=== PATIENT | male | born 1945 | race Caucasian/White ===

== ENCOUNTER 2017-04-07 20:26 | Inpatient (IN) ==
[2017-04-07 20:46] LABS: Basophils # 0.1 K/mcL (0.0-0.2); Basophils % 0.9 %; Eosinophils # 0.4 K/mcL (0.0-0.6); Eosinophils % 3.3 %; Hematocrit 30.2 % (37.5-50.1); Hemoglobin 9.3 g/dL (12.9-16.9); Immature Granulocytes % 0.4 % (0-4); Lymphocytes # 1.8 K/mcL (0.6-4.6); Lymphocytes % 15.9 %; Mean Corpuscular HGB Conc 30.8 g/dL (31.6-35.5); Mean Corpuscular Hemoglobin 27.1 pg (28.0-33.3); Mean Platelet Volume 9.6 fL (9.4-12.4); Monocytes # 1.2 K/mcL (0.0-1.3); Monocytes % 10.4 %; Neutrophils # 7.9 K/mcL (1.6-8.9); Platelet Count 371 K/mcL (140-400); Red Blood Count 3.43 M/mcL (4.19-5.50); Red Cell Distribution Width 14.2 % (11.5-14.5); Segmented Neutrophils % 69.1 %
[2017-04-07 20:51] LABS: INR 1.1; Prothrombin Time 11.4 Seconds (9.4-12.1)
[2017-04-07 20:57] LABS: Calcium 9.2 mg/dL (8.6-10.8); Potassium 4.2 mEq/L (3.5-4.5)
[2017-04-07] MEDS ORDERED: *HR* Heparin 5,000 UNIT/ML VIAL IVP PRN ×2 (21:08)
[2017-04-07] MEDS ORDERED: *HR* Heparin 5,000 UNIT/ML VIAL IVP ONE (21:08)
--- NOTE | 2017-04-07 21:20 | Emergency Department Note ---
Disposition Clinical Impression: NSTEMI (non-ST elevated myocardial infarction) Disposition: Admitted As Inpatient Condition: Fair Chest Pain HPI - General Chief Complaint: ED Chest Pain Stated Complaint: chest pain Time Seen by Provider: 04/07/17 20:30 Source: patient, family, EMS Limitations: no limitations Vital Signs Reviewed: Yes Nursing Notes Reviewed: Yes - History of Present Illness HPI Narrative: Mr. Adair, 71 old male, arrives from home by EMS with chief complaint of left- sided chest pain. Onset approximately one hour prior to arrival. Duration approximately 35-40 minutes and relieved with signal sublingual nitroglycerin given in route by EMS. Patient also received 81 mg aspirin 4 in route. Chest pain described as beginning in his left shoulder and radiating to his left neck and down his left chest. Described as constant, sharp, stabbing. Associate with diaphoresis. Denies associated nausea, dyspnea, or weakness. PMH: recently diagnosed with lung cancer which is increasing his stress levels; is currently still being evaluated and has not started any treatment plans. Vascular history: No cardiac stents or hx ACS. History of abdominal aneurysm. Left carotid endarterectomy, bilateral femoral stents - formed at this facility. Antiplatelet: Aspirin 81 mg, Plavix Anticoagulant: None Habits: [id number] history of smoking (1-1.5 pack per day 60 years); quit 1 week ago. ROS: Positive: None at this time to me; Patient is asymptomatic Negative: Fever, chills, nausea, vomiting, chest pains, palpitations, dyspnea, abdominal pains, back pains, neck pains, headache, anxiety, weakness Severity scale (1-10): 0 - Related Data Home Medications Medication Instructions Recorded Confirmed Aspirin Enteric Coated [Aspirin EC] 81 mg PO DAILY 03/09/16 04/05/17 Atorvastatin [Lipitor] 40 mg PO HS 03/09/16 04/05/17 Clopidogrel [Plavix] 75 mg PO DAILY 03/09/16 04/05/17 Previous Rx's Medication Instructions Recorded Oxycodone HCl/Acetaminophen 1 each PO Q6H PRN #30 tablet 04/05/17 [Percocet 7.5-325 mg Tablet] Allergies Allergy/AdvReac Type Severity Reaction Status Date / Time Penicillins Allergy Intermediate Rash Verified 04/05/17 15:46 All systems ED: reviewed and negative except as stated. Chest Pain PMH - Past Medical History Medical history: Reports: cancer, coronary artery disease, hypertension, peripheral artery disease Psychiatric history: Reports: no psych history - Social History Smoking Status: Former smoker Alcohol use: Reports: occasionally Drug use: Reports: none Physical Exam Vital Signs Reviewed General: Patient is alert, oriented, and in no acute distress. HEENT: No facial asymmetry. Head is normocephalic and atraumatic. PERRLA. Trachea midline. Cardiovascular: Heart regular rate and rhythm without clicks, rubs, gallops, or murmurs. No JVD. PMI nondisplaced. No chest pain palpation. Bilateral radial posterior tibial pulses 2/4. No carotid bruit. Respiratory: Symmetric chest rise with good respiratory effort. Bilateral breath sounds are clear without wheezing, crackles, or rhonchi. Abdomen: Bowel sounds present normoactive x-4 quadrants. Abdomen is soft, nondistended, and nontender. Skin: Warm and dry. Psych: Patient's affect is appropriate for situation. - General Limitations: no limitations General appearance: alert, in no apparent distress Course Course Narrative: Patient received several sublingual nitroglycerin and aspirin 81 mg 4 in route by EMS. We will not administer aspirin to him at this time. Patient's troponin is elevated at 0.29. EKG is unremarkable for ST changes. Chest x-ray unremarkable per radiology read. I discussed these findings patient and family at bedside. They agree to admission. Spoke with on-call cardiology, Dr. Abdul, who agrees to begin with ACS management; start low-dose ACS heparin. Spoke with the admitting hospitalist, Dr. Phan; he agrees to accept the patient and has no additional questions. Vital Signs Temperature 98.1 F 04/07/17 20:29 Pulse Rate 96 04/07/17 20:29 Respiratory Rate 16 04/07/17 20:29 Blood Pressure 173/86 04/07/17 20:29 O2 Sat by Pulse Oximetry 98 04/07/17 20:29 Temperature 97.9 F 04/08/17 03:05 Pulse Rate 80 04/08/17 03:05 Respiratory Rate 18 04/08/17 03:05 Blood Pressure 162/83 04/08/17 03:05 O2 Sat by Pulse Oximetry 97 04/08/17 03:05 Oxygen Delivery Oxygen Delivery Room Air Chest Pain - Medical Records Medical records reviewed: Yes I reviewed the patient's medical records. - Lab Data Lab results reviewed: Yes I reviewed the patient's lab results. Result diagrams: 04/08/17 03:03 04/07/17 20:38 Lab Results 04/07/17 04/07/17 04/07/17 Range/Units 20:38 20:38 20:38 WBC 11.4 H (4.3-11.1) K/mcL RBC 3.43 L (4.19-5.50) M/mcL Hgb 9.3 L (12.9-16.9) g/dL Hct 30.2 L (37.5-50.1) % MCV 88.0 (83.0-100.0) fL MCH 27.1 L (28.0-33.3) pg MCHC 30.8 L (31.6-35.5) g/dL RDW 14.2 (11.5-14.5) % Plt Count 371 (140-400) K/mcL MPV 9.6 (9.4-12.4) fL Immature Gran % 0.4 (0-4) % Seg Neutrophils % 69.1 % Lymphocytes % 15.9 % Monocytes % 10.4 % Eosinophils % 3.3 % Basophils % 0.9 % Neutrophils # 7.9 (1.6-8.9) K/mcL Lymphocytes # 1.8 (0.6-4.6) K/mcL Monocytes # 1.2 (0.0-1.3) K/mcL Eosinophils # 0.4 (0.0-0.6) K/mcL Basophils # 0.1 (0.0-0.2) K/mcL PT 11.4 (9.4-12.1) Seconds INR 1.1 APTT 30.0 (26.0-36.0) Seconds Sodium 138 (136-145) mEq/L Potassium 4.2 (3.5-4.5) mEq/L Chloride 104 (98-109) mEq/L Carbon Dioxide 26 (19-29) mEq/L BUN 31 H (8-26) mg/dL Creatinine 1.58 H (0.72-1.25) mg/dL Est GFR ( Amer) 52 L (> 60) Est GFR (Non-Af Amer) 43 L (> 60) BUN/Creatinine Ratio 20 (6-26) Glucose 136 H (70-99) mg/dL Calculated Osmolality 295 (280-300) Calcium 9.2 (8.6-10.8) mg/dL Troponin I (0-0.03) ng/mL 04/07/17 Range/Units 20:38 WBC (4.3-11.1) K/mcL RBC (4.19-5.50) M/mcL Hgb (12.9-16.9) g/dL Hct (37.5-50.1) % MCV (83.0-100.0) fL MCH (28.0-33.3) pg MCHC (31.6-35.5) g/dL RDW (11.5-14.5) % Plt Count (140-400) K/mcL MPV (9.4-12.4) fL Immature Gran % (0-4) % Seg Neutrophils % % Lymphocytes % % Monocytes % % Eosinophils % % Basophils % % Neutrophils # (1.6-8.9) K/mcL Lymphocytes # (0.6-4.6) K/mcL Monocytes # (0.0-1.3) K/mcL Eosinophils # (0.0-0.6) K/mcL Basophils # (0.0-0.2) K/mcL PT (9.4-12.1) Seconds INR APTT (26.0-36.0) Seconds Sodium (136-145) mEq/L Potassium (3.5-4.5) mEq/L Chloride (98-109) mEq/L Carbon Dioxide (19-29) mEq/L BUN (8-26) mg/dL Creatinine (0.72-1.25) mg/dL Est GFR ( Amer) (> 60) Est GFR (Non-Af Amer) (> 60) BUN/Creatinine Ratio (6-26) Glucose (70-99) mg/dL Calculated Osmolality (280-300) Calcium (8.6-10.8) mg/dL Troponin I 0.29 H* (0-0.03) ng/mL - Radiology Data Radiology results reviewed: Yes I reviewed the patient's radiology results. - EKG Data EKG attestation: Yes I reviewed and interpreted this EKG. EKG results narrative: EKG dated 07 April 2017 at 20: 32 interpreted as sinus rhythm with a rate of 98. Normal intervals appear 156, QRS 92, QT/QTC 336/91. Normal axis. Nonspecific ST-T changes. Compared to previous dated 03/18/2017 showing no acute ischemic changes or comparison. Heart Score - Score History: Moderately Suspicious EKG: Non Specific repolarisation Disturbance Age: Greater than 65 Risk Factors: Equal/Greater than 3 risk factor or history of atherosclerotic disease Troponin: 1-3x normal limit HEART Score Total: 7 Attestation Statement - Attestation Attestation: I examined this patient and my medical decision-making was reviewed with the DIRECTOR INSTRUCTIONAL MATERIAL/PA/Advanced Practice Nurse/Resident Physician. I agree with the documented findings, disposition and treatment plan as described except to the extent set forth below. Patient to ED with chest pain. Left-sided pressure. Pain was relieved in route by nitroglycerin. In free at the time of arrival. On examination he is awake alert no acute distress. Heart regular rate and rhythm lungs are clear. Plan. Patient has unchanged EKG. Troponin slightly elevated at 0.2. Pain relieved with nitroglycerin. He does have newly diagnosed cancer, however is not short of breath. He is not hypoxic. His family with nitroglycerin. This is felt to be ischemic chest pain and not a PE. He is admitted to medicine. 30 minutes of critical care exclusive of separately billable procedures.
[2017-04-07] MEDS: Heparin 25,000 UNIT/500 ML D5W 25,000 UNIT/500 ML MLS IVC SCH (21:28)
[2017-04-07] MEDS ORDERED: *HR* Labetalol 20 MG/4 ML SYRINGE IVP ONE (22:08)
[2017-04-07] MEDS ORDERED: Ondansetron 4 MG/2 ML VIAL IVP PRN (22:48)
[2017-04-07] MEDS ORDERED: Acetaminophen 325 MG TABLET PO PRN (22:48)
[2017-04-07] MEDS ORDERED: Naloxone 0.4 MG/ML INJ IVP PRN (22:48)
--- NOTE | 2017-04-07 22:48 | Internal Med History&Physical ---
Date of Encounter: 04/07/17 Time of Encounter: 23:26 Assessment and Plan (1) NSTEMI (non-ST elevated myocardial infarction) Current visit: Yes Status: Acute 1 He has been experiencing left-sided shoulder pain radiating to chest. Pain was relieved with nitroglycerin He has a history of coronary disease abnormal stress test/2016. Hypertension smoker Cardiac troponin was elevated at 0.29 we will continue to trend troponins ER physician spoke with Dr. Abdul director long term care cardiology who suggests initiating heparin drip 2 we will obtain a cardiac echo 3 we will continue with aspirin Plavix and statin we will initiate metoprolol 12.5 twice a day all 4 continuous cardiac monitoring 5 nitroglycerin as needed for chest pain 6 lipid profile in the a.m. and (2) Non-small cell lung cancer Current visit: Yes Status: Acute 1 patient was recently diagnosed with non-small cell carcinoma right lung. He is being followed by oncology. Presently he is still being evaluated he has not started treatment. He will continue to follow with oncology will consult as needed Qualifiers: Laterality: right Qualified Code(s): C34.91 - Malignant neoplasm of unspecified part of right bronchus or lung (3) Hypertension Current visit: Yes Status: Acute 1 patient was on lisinopril was recently stopped due to LINETTE. We will start on metoprolol 12.5 twice a day Qualifiers: Hypertension type: essential hypertension Qualified Code(s): I10 - Essential (primary) hypertension (4) CKD (chronic kidney disease), stage III Current visit: Yes Status: Acute 1 patient's creatinine is 1.58 which appears to be around his baseline. Apparently he has had a recent episode of [place] I. We will continue to monitor creatinine 2 we will avoid nephrotoxins 3 monitor intake and output daily weights (5) DVT prophylaxis Current visit: Yes Status: Acute Patient is on heparin drip Internal Medicine - H&P: HPI Chief complaint: CP Admitted From: Emergency Dept Plans for Post Hospital Care: Home History of present illness: Mr. Aguilar is a 71 year old male past medical history of hypertension coronary artery disease PAD left carotid endarterectomy abdominal aortic aneurysm bilateral femoral stents non-small cell carcinoma. According to the patient he has been experiencing left shoulder pain off and on since March 30. He felt it was related to bursitis and has been using heat warm showers and icy hot to relieve the pain. This has been working up until today the patient began to experience left-sided shoulder pain radiating into his left neck into his left chest describes the pain as constant sharp stabbing he did experience some diaphoresis denies any nausea or dyspnea or weakness. The pain lasted approximately 35-40 minutes he did call EMS. Upon EMS arrival he did give him 1 nitroglycerin and 4 baby aspirin which did relieve his pain. He was transported to the ER for further workup evaluation. Upon arrival to the ER lab work did reveal troponin of 0.29 EKG was sinus rhythm no ST T wave abnormalities. Lab work did reveal elevated creatinine 1.58 however appears this is something chronic. Chest x-ray revealed bibasilar atelectasis and unchanged upper right lobe mass. Patient's heart rate was 80-90 he was hypertensive 180- 190 systolic. Patient was given labetalol IV. ER physician did speak to Dr. Abdul director long term care cardiology who advised to start patient on heparin drip. Patient has been admitted for further workup and evaluation. Presently patient denies any chest pain he does not appear to be any respiratory distress his lung sounds are clear throughout, heart sounds regular rate S1-S2 no rubs or clicks gallops murmurs noted. No lower extremity edema. Abdomen soft nontender. Denies any fevers chills nausea vomiting diarrhea abdominal pain He is sinus rhythm on the monitor with rate of 80s systolics 150. Hemodynamically stable at this time. I reviewed his case with Dr. Delarosa who agrees with plan. Past Med Surg Social Fam HX - Past Medical History Medical history: cancer, coronary artery disease, hypertension, peripheral artery disease Psychiatric history: no psych history - Social History Smoking Status: Former smoker Smokeless Tobacco Status: No Alcohol use: occasionally Drug use: none - Family History Father Living Status: Cause of : Heart disease Internal Medicine - H&P: Meds Aspirin Enteric Coated [Aspirin EC] 81 mg PO DAILY 03/09/16 [History] Atorvastatin [Lipitor] 40 mg PO HS 03/09/16 [History] Clopidogrel [Plavix] 75 mg PO DAILY 03/09/16 [History] Oxycodone HCl/Acetaminophen [Percocet 7.5-325 mg Tablet] 1 each PO Q6H PRN #30 tablet 04/05/17 [Rx] Allergies Penicillins Allergy (Intermediate, Verified 04/05/17 15:46) Rash All Systems PM: A 10-system review of systems was performed and is negative for pertinent findings except as documented above in the HPI. - Constitutional Constitutional: no chills, no fever(s), no night sweats - EENT Eyes: no change in vision, no discharge, no pain, no photophobia Nose, mouth and throat: no dysphagia, no nasal discharge, no neck pain, no sore throat - Cardiovascular Cardiovascular ROS IM: chest pain, no diaphoresis, no dyspnea, no lightheadedness, no palpitations, no syncope - Respiratory Respiratory: no cough, no dyspnea, no wheezing, no excessive phlegm production - Gastrointestinal Gastrointestinal: no abdominal pain, no diarrhea, no hematemesis, no hematochezia, no melena, no nausea, no vomiting - Musculoskeletal Musculoskeletal ROS IM: arthralgias - Integumentary Integumentary IM: no rash, no unusual bruising - Neurological Neurological ROS: no confusion, no convulsions, no focal weakness, no numbness, no tingling, no tremor(s) - Hematologic/Lymphatic Hematologic/Lymphatic: no easy bruising - Constitutional Vitals: Temp Pulse Resp BP Pulse Ox 98.1 F 92 16 190/106 96 04/07/17 20:29 04/07/17 21:41 04/07/17 22:28 04/07/17 22:28 04/07/17 21:41 General appearance: Present: A&O X 3, answers questions appropriately - Head Head exam: Present: atraumatic, normocephalic - Eye Eye exam: Present: PERRL, conjuntiva pink, sclera anicteric Pupils: Present: PERRL - Neck Neck exam general surgery: Present: supple, trachea midline. Absent: lymphadenopathy - Respiratory Respiratory exam: Present: CTAB. Absent: accessory muscle use, rales, rhonchi, wheezes - Cardiovascular Cardiovascular exam: Present: RRR, +S1, +S2. Absent: diastolic murmur, gallop, rubs, systolic murmur - GI/Abdominal GI/Abdominal exam: Present: normal bowel sounds, soft, no peritoneal signs. Absent: distended, tenderness - Extremities Exam Extremities exam: Present: warm, radial pulses palpable and symetrical. Absent : calf tenderness, cyanotic, pedal edema - Neurological Exam Neurological exam: Present: CN II-XII intact, oriented X3, no focal deficits. Absent: pronater drift, facial droop, speech deficit - Skin Skin exam: Present: dry, intact Internal Med - H&P Results - Labs CBC & Chem 7: 04/07/17 20:38 04/07/17 20:38 - EKG Data EKG shows normal: sinus rhythm - EKG Data Prior EKG available for review: yes When compared to previous EKG: there is no significant change - Diagnostic Studies Chest x-ray Additional comments: Chest X-Ray 04/07/17 20:30 IMPRESSION: 1. Bibasilar atelectasis. 2. Unchanged right upper lobe mass consistent with malignancy. Unchanged metastatic right mediastinal lymphadenopathy. D/ / Silvestre Pineda MD / Silvestre Pineda MD Interpreting Provider: Silvestre Pineda MD
[2017-04-07] MEDS ORDERED: 0.9 % Sodium Chloride 250 ML ONE (23:39)
[2017-04-08 03:44] LABS: Basophils # 0.1 K/mcL (0.0-0.2); Basophils % 0.9 %; Eosinophils # 0.5 K/mcL (0.0-0.6); Eosinophils % 4.1 %; Hematocrit 29.5 % (37.5-50.1); Hemoglobin 8.9 g/dL (12.9-16.9); Immature Granulocytes % 0.5 % (0-4); Lymphocytes # 2.3 K/mcL (0.6-4.6); Lymphocytes % 19.5 %; Mean Corpuscular HGB Conc 30.2 g/dL (31.6-35.5); Mean Corpuscular Hemoglobin 26.5 pg (28.0-33.3); Mean Corpuscular Volume 87.8 fL (83.0-100.0); Mean Platelet Volume 9.8 fL (9.4-12.4); Monocytes # 1.1 K/mcL (0.0-1.3); Monocytes % 9.3 %; Neutrophils # 7.8 K/mcL (1.6-8.9); Platelet Count 383 K/mcL (140-400); Red Blood Count 3.36 M/mcL (4.19-5.50); Red Cell Distribution Width 14.3 % (11.5-14.5); Segmented Neutrophils % 65.7 %
[2017-04-08 04:01] LABS: BUN/Creatinine Ratio 24 (6-26); Blood Urea Nitrogen 33 mg/dL (8-26); Calcium 9.1 mg/dL (8.6-10.8); Carbon Dioxide 25 mEq/L (19-29); Chloride 105 mEq/L (98-109); Chol/HDL Ratio 2.9 (0-4.9); Cholesterol 144 mg/dL (< 200); Glucose 96 mg/dL (70-99); HDL Cholesterol 49 mg/dL (40-59); LDL Cholesterol,Calculated 76 mg/dL (0-99); Osmolality,Calculated 295 (280-300); Potassium 3.9 mEq/L (3.5-4.5); Sodium 139 mEq/L (136-145); Triglycerides 97 mg/dL (< 150); eGFR For African Americans > 60 (> 60); eGFR For Non-African Americans 51 (> 60)
[2017-04-08] MEDS ORDERED: Nitroglycerin 0.4 MG TAB.SUBL SL PRN (08:13)
--- NOTE | 2017-04-08 09:00 | Cardiology Consult Note ---
Date of Encounter: 04/08/17 Time of Encounter: 08:57 Assessment and Plan (1) NSTEMI (non-ST elevated myocardial infarction) Current Visit: Yes Status: Acute Troponin 0.29, 1.10. Intermittent left shoulder pain >1 week that pt related to bursitis. Yesterday, pain radiated to chest and neck. Pain relieved with nitro, no recurrence since. On heparin gtt. Recommend for 24-48 hours. Complicated by recent diagnosis of non small cell lung cancer, at least stage III. Pt is scheduled to meet with Dr. Gamble this week to discuss chemoradiation and plan for PET scan this week for further evaluation. In setting of newly diagnosed lung cancer with unclear prognosis, would recommend medical management at this time until we consult oncology for further recommendations--ASA, Plavix, Statin, BB, nitrates. Check echo to evaluate structure and function. Stress test 03/02/16: LVEF 72%, small mild-moderate intensity reversible perfusion defect in basal inferior wall and basal inferoseptum. Multiple risk factors--significant vascular disease s/p femoral stents and CEA, HTN, HLD, prior tobacco abuse, family hx. Will consult oncology, check echo, continue to follow for further recommendations. (2) CKD (chronic kidney disease), stage III Current Visit: Yes Status: Chronic Creatinine 1.58. Appears near baseline. (3) Non-small cell lung cancer Current Visit: Yes Status: Acute As above, will consult oncology. Qualifiers: Laterality: right Qualified Code(s): C34.91 - Malignant neoplasm of unspecified part of right bronchus or lung (4) Anemia Current Visit: Yes Status: Acute HGB 8.9, HGB has steadily declined since last year--in setting of newly diagnosed lung ca. No evidence of acute bleeding. On heparin gtt. Continue to monitor. Qualifiers: Anemia type: unspecified type Qualified Code(s): D64.9 - Anemia, unspecified Discussion w patient/family: The assessment and plan as outlined above was discussed with the patient and/or family members who expressed understanding and agreement. All questions were answered. Thank you for involving us in the care of your patient. Please call with any questions. I will discuss all the above with Dr. Abdul and make changes as necessary. History of Present Illness Consult date: 04/08/17 Requesting physician: Ingrid Delarosa Consult reason: NSTEMI Chief complaint: chest pain History of present illness: Mr. Aguilar is a 71 year old male with PMH of HTN, CAD based on abnormal stress 2015, carotid artery disease with hx of left carotid endarterectomy, PAD, abdominal aortic aneurysm, bilateral femoral stents, recent diagnosis of lung ca --non-small cell carcinoma. According to the patient he has been experiencing left shoulder pain off and on since March 30. He felt it was related to bursitis and has been using heat warm showers and icy hot to relieve the pain. This has been working up until today the patient began to experience left-sided shoulder pain radiating into his left neck into his left chest described as sharp and stabbing associated with diaphoresis. The pain lasted approximately 35-40 minutes. Upon EMS arrival he did give him 1 nitroglycerin and 4 baby aspirin which did relieve his pain. He was transported to the ER for further workup evaluation. Troponins 0.29, 1.10. CXR revealed bibasilar atelectasis and unchanged upper right lobe mass. Pt denies any recurrence of chest pain since admission. Reports he has appointments this week to discuss chemoradiation and have a PET scan. Past Med Surg Social Fam HX - Past Medical History Medical history: cancer, coronary artery disease, hypertension, peripheral artery disease Psychiatric history: no psych history - Social History Smoking Status: Former smoker Packs per day: 2 Smokeless Tobacco Status: No Alcohol use: occasionally Drug use: none - Family History Father Living Status: Cause of : Heart disease Medications and Allergies Aspirin Enteric Coated [Aspirin EC] 81 mg PO DAILY 03/09/16 [History] Atorvastatin [Lipitor] 40 mg PO HS 03/09/16 [History] Clopidogrel [Plavix] 75 mg PO DAILY 03/09/16 [History] Oxycodone HCl/Acetaminophen [Percocet 7.5-325 mg Tablet] 1 each PO Q6H PRN #30 tablet 04/05/17 [Rx] Allergies Penicillins Allergy (Intermediate, Verified 04/05/17 15:46) Rash All Systems Review: A 10-system review of systems was performed and is negative for pertinent findings except as documented above in the HPI. - Cardiovascular Cardiovascular: as per HPI, chest pain at rest, chest pain with exertion, dyspnea on exertion, radiating jaw, neck or arm pain - Respiratory Respiratory: dyspnea Physical Examination Vital Signs, Last 4 Hours Temp Pulse Resp BP Pulse Ox 04/08/17 07:24 98.0 F 98 16 155/72 97 Vital Signs Temp Pulse Resp BP Pulse Ox 04/08/17 07:24 98.0 F 98 16 155/72 97 04/08/17 03:05 97.9 F 80 18 162/83 97 04/07/17 22:56 98.1 F 85 17 152/88 97 04/07/17 22:28 16 190/106 04/07/17 21:41 92 18 180/107 96 04/07/17 20:29 98.1 F 96 16 173/86 97 Intake and Output 04/07/17 04/08/17 04/08/17 23:59 07:59 15:59 Intake Total 85.8 / 85.8 Output Total 400 / 400 Balance -314.2 / -314.2 Intake: IV Fluids 85.8 / 85.8 Heparin 25,000 UNIT/500 85.8 / 85.8 ML D5W 25,000 unit In 500 ml @ 12 UNIT/KG/HR 16. 112 mls/hr IVC .Q24H [facility] Rx#:[id number] Output: Urine 400 / 400 Other: Weight 64.954 kg General: Conversant, No Apparent Distress HEENT: Atraumatic, Normocephaly, Mucus Membranes Moist Neck: No JVD, Normal carotid pulses Cardiac: Reg Rate and Rhythm, Normal S1 and S2, No Murmur Lungs: Normal Breath Sounds, No Wheeze, Rales, Rhonchi Neuro: Alert and responsive, No focal deficits noted Abdomen: Soft, Non-Tender Skin: No rashes noted on visualized skin Musculoskeletal: No Chest Wall Tenderness Extremities: No Clubbing, No Cyanosis, No Edema, Normal Pulses Results 04/08/17 03:03 04/08/17 03:03 Lab Results 04/08/17 04/08/17 04/08/17 03:03 03:03 03:03 WBC 11.9 H Hgb 8.9 L Hct 29.5 L Plt Count 383 APTT Sodium 139 Potassium 3.9 Chloride 105 Carbon Dioxide 25 BUN 33 H Creatinine 1.36 H Glucose 96 Calcium 9.1 Magnesium 2.0 Troponin I 1.10 H* 04/08/17 03:03 WBC Hgb Hct Plt Count APTT 74.3 H D Sodium Potassium Chloride Carbon Dioxide BUN Creatinine Glucose Calcium Magnesium Troponin I Short CBC 04/08/17 04/07/17 Range/Units 03:03 20:38 WBC 11.9 H 11.4 H (4.3-11.1) K/mcL Hgb 8.9 L 9.3 L (12.9-16.9) g/dL Hct 29.5 L 30.2 L (37.5-50.1) % Plt Count 383 371 (140-400) K/mcL Neutrophils # 7.8 7.9 (1.6-8.9) K/mcL BMP 04/08/17 04/07/17 Range/Units 03:03 20:38 Sodium 139 138 (136-145) mEq/L Potassium 3.9 4.2 (3.5-4.5) mEq/L Chloride 105 104 (98-109) mEq/L Carbon Dioxide 25 26 (19-29) mEq/L BUN 33 H 31 H (8-26) mg/dL Creatinine 1.36 H 1.58 H (0.72-1.25) mg/dL Glucose 96 136 H (70-99) mg/dL Calcium 9.1 9.2 (8.6-10.8) mg/dL Cardiac Enzymes 04/08/17 04/07/17 Range/Units 03:03 20:38 Troponin I 1.10 H* 0.29 H* (0-0.03) ng/mL Impressions Chest X-Ray 04/07/17 20:30 IMPRESSION: 1. Bibasilar atelectasis. 2. Unchanged right upper lobe mass consistent with malignancy. Unchanged metastatic right mediastinal lymphadenopathy. D/ / Silvestre Pineda MD / Silvestre Pineda MD Interpreting Provider: Silvestre Pineda MD Active Medications Acetaminophen (Tylenol) 650 mg PO Q6HR PRN PRN Reason: Mild Pain (1-3) Stop: 10/07/17 22:49 Aspirin (Aspirin Ec) 81 mg PO DAILY [facility] Stop: 10/08/17 09:01 Atorvastatin Calcium (Lipitor) 40 mg PO HS [facility] Stop: 10/08/17 21:01 Clopidogrel Bisulfate (Plavix) 75 mg PO DAILY [facility] Stop: 10/08/17 09:01 Heparin Sodium (Porcine) (Heparin) 4,000 unit 60 unit/kg (4000 unit) IVP Q6HR PRN PRN Reason: SEE COMMENTS Stop: 10/07/17 21:09 Heparin Sodium (Porcine) (Heparin) 2,000 unit 30 unit/kg (2000 unit) IVP Q6H PRN PRN Reason: SEE COMMENTS Stop: 10/07/17 21:09 Heparin Sodium/Dextrose (Heparin 25,000 Unit/500 Ml D5w) 25,000 unit in 500 mls @ 16.112 mls/hr IVC .Q24H [facility]AND; 12 UNIT/KG/HR PRN Reason: Protocol Stop: 10/07/17 21:16 Last Titration: 04/08/17 04:04 Dose: 12 unit/kg/hr, 16.112 mls/hr Metoprolol Tartrate (Lopressor) 25 mg PO BID [facility] Stop: 10/07/17 08:16 Naloxone HCl (Narcan) 0.4 mg IVP Q2MIN PRN PRN Reason: Opioid Reversal Stop: 10/07/17 22:49 Nitroglycerin (Nitroglycerin) 0.4 mg SL Q5MIN PRN PRN Reason: Chest Pain Stop: 10/08/17 08:14 Ondansetron HCl (Zofran) 4 mg IVP Q8HR PRN PRN Reason: Nausea And Vomiting Stop: 10/07/17 22:49 - Imaging and Cardiology Stress Test: report reviewed - EKG Interpretation EKG results cardiology: personally reviewed (SR, no significant changes), other Consult Discharge Plan - Plan Referrals: Vinny Campbell MD [Primary Care Provider] -
[2017-04-08] MEDS: Aspirin Enteric Coated 81 MG Tablet PO SCH (10:50)
[2017-04-08] MEDS: Isosorbide MONOnitrate (24 HR) 30 MG TAB.ER.24H PO SCH (10:51)
--- NOTE | 2017-04-08 12:57 | Internal Med Progress Note ---
Date of Encounter: 04/08/17 Time of Encounter: 12:55 - Assessment and plan (1) NSTEMI (non-ST elevated myocardial infarction) Current Visit: Yes Status: Acute Assessment and plan: Patient presented with retrosternal chest pain along with troponin leak. Has been started on anticoagulation with IV heparin drip. Continue telemetry monitoring. Serial troponins are elevated with maximum at 1.12. Cardiology consult appreciated, agrees with current management. Continue aspirin, Plavix, statin, beta erendira. Start Imdur. Check 2-D echocardiogram. Patient had an abnormal stress test done in April 2016 that showed a small reversible defect in basal septum and inferior wall and was recommended medical management at the time. Patient may benefit from left heart catheterization now after following renal protective strategy. We will continue to monitor. (2) CAD (coronary artery disease) Current Visit: Yes Status: Chronic Qualifiers: Coronary Disease-Associated Artery/Lesion type: [place] artery [place] vs. transplanted heart: [place] heart Associated angina: without angina Qualified Code(s): I25.10 - Atherosclerotic heart disease of [place] coronary artery without angina pectoris (3) PAD (peripheral artery disease) Current Visit: Yes Status: Chronic (4) Hypertension Current Visit: Yes Status: Chronic Assessment and plan: Blood pressure noted to be elevated. Will increase metoprolol and start Imdur, continue to monitor blood pressure closely. Qualifiers: Hypertension type: essential hypertension Qualified Code(s): I10 - Essential (primary) hypertension (5) CKD (chronic kidney disease), stage III Current Visit: Yes Status: Chronic Assessment and plan: Serum creatinine noted to be at baseline, around 1.3. Continue gentle IV hydration in anticipation of possible left heart catheterization. (6) Non-small cell lung cancer Current Visit: Yes Status: Chronic Assessment and plan: Recently diagnosed right upper lobe non-small cell lung carcinoma, followed by oncology as outpatient. Plan to begin chemoradiation, not started yet. Qualifiers: Laterality: right Qualified Code(s): C34.91 - Malignant neoplasm of unspecified part of right bronchus or lung (7) Anemia Current Visit: Yes Status: Chronic Qualifiers: Anemia type: unspecified type Qualified Code(s): D64.9 - Anemia, unspecified (8) Mixed hyperlipidemia Current Visit: Yes Status: Chronic - Subjective Interval history: Feels better; improved chest pain; no dyspnea, leg swelling; on IV Heparin drip; - Constitutional Vitals: Temp Pulse Resp BP Pulse Ox 97.8 F 90 14 160/74 97 04/08/17 11:00 04/08/17 11:00 04/08/17 11:00 04/08/17 11:00 04/08/17 11:00 General appearance: Present: A&O X 3, answers questions appropriately - Respiratory Respiratory exam: Present: CTAB. Absent: accessory muscle use, rales, rhonchi, wheezes - Cardiovascular Cardiovascular exam: Present: RRR, +S1, +S2. Absent: diastolic murmur, gallop, rubs, systolic murmur - GI/Abdominal GI/Abdominal exam: Present: normal bowel sounds, soft, no peritoneal signs. Absent: distended, tenderness - Extremities Exam Extremities exam: Present: full ROM, warm, radial pulses palpable and symetrical. Absent: calf tenderness, cyanotic, pedal edema - Neurological Exam Neurological exam: Present: CN II-XII intact, oriented X3, no focal deficits. Absent: pronater drift, facial droop, speech deficit Internal Medicine: Result - Labs CBC & Chem 7: 04/08/17 03:03 04/08/17 03:03 Labs: Short CBC 04/08/17 Range/Units 03:03 WBC 11.9 H (4.3-11.1) K/mcL Hgb 8.9 L (12.9-16.9) g/dL Hct 29.5 L (37.5-50.1) % Plt Count 383 (140-400) K/mcL Neutrophils # 7.8 (1.6-8.9) K/mcL BMP 04/08/17 03:03 Sodium 139 Potassium 3.9 Chloride 105 Carbon Dioxide 25 BUN 33 H Creatinine 1.36 H Glucose 96 Calcium 9.1 Cardiac Enzymes 04/08/17 04/08/17 Range/Units 03:03 09:10 Troponin I 1.10 H* 1.12 H* (0-0.03) ng/mL - ABG Interpretation ABG results: PT/INR, D-dimer PT 11.4 Seconds (9.4-12.1) 04/07/17 20:38 Consult Discharge Plan - Plan Referrals: Vinny Campbell MD [Primary Care Provider] -
[2017-04-08] MEDS: 0.9 % Sodium Chloride 1,000 ML IVC SCH (22:58)
[2017-04-09 00:55] LABS: BUN/Creatinine Ratio 27 (6-26); Blood Urea Nitrogen 32 mg/dL (8-26); Calcium 8.9 mg/dL (8.6-10.8); Carbon Dioxide 21 mEq/L (19-29); Chloride 108 mEq/L (98-109); Glucose 100 mg/dL (70-99); Osmolality,Calculated 293 (280-300); Potassium 4.5 mEq/L (3.5-4.5); Sodium 138 mEq/L (136-145); eGFR For African Americans > 60 (> 60); eGFR For Non-African Americans 59 (> 60)
[2017-04-09 01:28] LABS: Basophils # 0.1 K/mcL (0.0-0.2); Basophils % 0.8 %; Eosinophils # 0.4 K/mcL (0.0-0.6); Eosinophils % 3.2 %; Hematocrit 26.3 % (37.5-50.1); Hemoglobin 8.2 g/dL (12.9-16.9); Immature Granulocytes % 0.6 % (0-4); Lymphocytes # 2.2 K/mcL (0.6-4.6); Mean Corpuscular HGB Conc 31.2 g/dL (31.6-35.5); Mean Corpuscular Hemoglobin 27.5 pg (28.0-33.3); Mean Corpuscular Volume 88.3 fL (83.0-100.0); Mean Platelet Volume 9.7 fL (9.4-12.4); Monocytes # 1.3 K/mcL (0.0-1.3); Monocytes % 10.9 %; Neutrophils # 7.6 K/mcL (1.6-8.9); Platelet Count 324 K/mcL (140-400); Red Blood Count 2.98 M/mcL (4.19-5.50); Red Cell Distribution Width 14.6 % (11.5-14.5); Segmented Neutrophils % 65.5 %
[2017-04-09] MEDS: Heparin 25,000 UNIT/500 ML D5W 25,000 UNIT/500 ML MLS IVC SCH (02:21)
[2017-04-09] MEDS: Isosorbide MONOnitrate (24 HR) 30 MG TAB.ER.24H PO SCH (07:26)
[2017-04-09] MEDS: Aspirin Enteric Coated 81 MG Tablet PO SCH (07:26)
[2017-04-09] MEDS: 0.9 % Sodium Chloride 1,000 ML IVC SCH ×2 (07:28→08:34)
--- NOTE | 2017-04-09 10:21 | Event Note ---
Date of Encounter: 04/09/17 Time of Encounter: 10:18 - Cardiology Event Note Peak troponin 1.12. Discussed with Dr. Harrell and pt. Pt has failed medical management for abnormal stress and now presents as NSTEMI. Will proceed with [facility] in setting of lung cancer. R/B/A discussed. Oncology consulted as well.
--- NOTE | 2017-04-09 11:24 | Pre-Sedation Evaluation ---
Pre-sedation evaluation - Pre-sedation checklist Date of procedure: 04/09/17 Procedure: [facility] Recent Vitals: Last Vital Signs Temp 97.7 F 04/09/17 07:23 Pulse 80 04/09/17 07:23 Resp 14 04/09/17 07:23 BP 169/79 04/09/17 07:23 Pulse Ox 97 04/09/17 07:29 H&P (including ROS) documented in medical record: Yes Previous reaction to sedatives/anesthetics: No Dietary Status: NPO after Midnight Dentition: No loose teeth or bridges ASA Classification *see protocol: CLASS II-Mild systemic disease Plan of Care: Pt appropriate candidate for procedure/moderate/conscious sedation , Risks/benefits of procedure/sedation discussed w/ patient/family
[2017-04-09] MEDS ORDERED: Verapamil 5 MG/2 ML VIAL ONE (11:59)
[2017-04-09] MEDS ORDERED: Nitroglycerin 1,000 MCG/10 ML VIAL IV ONE ×2 (11:59→14:00)
[2017-04-09] MEDS ORDERED: *HR* Heparin 10,000 UNIT/10 ML VIAL ONE (11:59)
[2017-04-09] MEDS ORDERED: Heparin 1,000 UNITS/500 mL NS 500 ML ONE (11:59)
[2017-04-09] MEDS ORDERED: 0.9 % Sodium Chloride 1,000 ML ONE (11:59)
[2017-04-09] MEDS ORDERED: *HR* Midazolam HCl 2 MG/2 ML VIAL ONE (12:12)
[2017-04-09] MEDS ORDERED: *HR* FentaNYL (PF) 100 MCG/2 ML VIAL ONE (12:12)
[2017-04-09] MEDS ORDERED: Tirofiban 5 MG/100ML 5 MG/100 ML BAG IV ONE (12:48)
[2017-04-09] MEDS ORDERED: *HR* Ticagrelor 90 MG TABLET ONE (14:05)
[2017-04-09] MEDS ORDERED: Ondansetron 4 MG/2 ML VIAL ONE ×2 (14:13)
[2017-04-09] MEDS ORDERED: Ondansetron 8 MG in 0.9 % Sodium Chloride 50 ML IVPB ONE (14:14)
[2017-04-09] MEDS ORDERED: Tirofiban 12.5 MG/250ML 12.5 MG/250 ML BAG IVC SCH (14:15)
[2017-04-09] MEDS ORDERED: Isosorbide MONOnitrate (24 HR) 30 MG TAB.ER.24H PO SCH (14:16)
[2017-04-09] MEDS ORDERED: *HR* Morphine 2 MG/ML SYRINGE IVP PRN (14:17)
--- NOTE | 2017-04-09 14:23 | Invasive Diagnostic Lab Proc ---
Name: Vinod Aguilar Date of Study: 04/09/2017 Date: 1945 Ht: 68.9in Medical Record#: [id number] Age: 71 Wt: 147.71lb Gender: Male BSA: 1.81 Order #: [id number] BMI: 21.88 Physicians Procedure Physician: Tripp Mobley MD, [facility] Referring MD: Referring MD: Staff Name Position Time In Bianca Brewer RT (R) Monitor 12:17 PM GinaShanel perdomo RT (R) Scrub 12:17 PM Sahara Sepulveda RN Solidworks Drafter 12:17 PM Wendy Christopher RT Monitor 12:17 PM Indications Indication Non-Stemi Procedures Performed Procedure L HRT ARTERY/VENTRICLE ANGIO PRQ CARD BM STENT W/ANGIO 1 VSL PRQ CARD BM STENT W/ANGIO 1 VSL PRQ CARD BM STENT W/ANGIO 1 VSL Pre-Procedure Checklist Informed consent is complete signed and on chart. H\\T\\P is on chart. ID band is on and ID verified with patient. Patient NPO for procedure The procedure was described for the patient and questions were answered. Blood Pressure: 179/88 ECG is on chart. Rhythm: NSR Plan of Care Patient will tolerate the procedure without complications. Adequate level of comfort will be maintained. Hemodynamics will remain stable Patient will recover from procedure without complications. Respiratory function will be maintained. Cardiac rhythm will remain stable. Patient temperature will be maintained. Patient and/or family have verbalized understanding of the procedure. Patient Education Chief Complaint/Reason for Test: Cardiac Cath Developmental Category: Geriatric (65+ years) Developmentally Appropriate for Age: Yes Learning Barriers: None Education Needs: Procedure Education Method: Verbal Information Taught: Cardiac Cath Educational Evaluation: Able to repeat information Intravenous Access Time IV Size Location DC'd Fluid/Drip Rate Units RN 20g 1 /" Patent On Arrival Rt Antecubital 0.9NaCl 25 ml/hr Allergies Penicillins Vital Signs Time BP (mmHg) HR (bpm) O2 Sat. RR (bpm) LOC 169 / 79 80 97 % 14 12:19 PM / % 4 = Oriented but drowsy 12:19 PM / % 4 = Oriented but drowsy 12:34 PM / % 12:30 PM 163 / 93 73 100 % 14 12:36 PM 145 / 81 72 98 % 16 12:40 PM 155 / 85 74 99 % 10 12:45 PM 169 / 92 73 99 % 14 12:51 PM 172 / 81 73 99 % 13 12:56 PM 172 / 99 75 99 % 12 01:01 PM 175 / 97 76 99 % 13 01:06 PM 181 / 104 77 99 % 13 01:11 PM 189 / 98 78 99 % 15 01:16 PM 191 / 104 78 99 % 14 01:54 PM 126 / 72 82 97 % 11 01:59 PM 129 / 73 85 97 % 16 02:04 PM 112 / 67 84 96 % 27 12:16 PM 179 / 89 79 97 % 21 12:21 PM 165 / 94 75 99 % 15 12:26 PM 154 / 83 72 98 % 18 01:21 PM 191 / 114 80 99 % 14 01:26 PM 162 / 94 79 99 % 17 01:29 PM 87 / 58 77 100 % 20 01:30 PM 138 / 77 79 99 % 22 01:34 PM 151 / 89 77 99 % 27 01:39 PM 130 / 76 80 99 % 13 01:43 PM 114 / 74 83 100 % 26 01:44 PM 150 / 88 83 99 % 23 01:48 PM 109 / 74 85 99 % 20 01:50 PM 139 / 72 82 98 % 18 Procedural Medications Time Medication Dose Units Method Given By 12:18 PM Versed 2 mg Intravenous Sahara Sepulveda RN 12:18 PM Fentanyl 50 mcg Intravenous Sahara Sepulveda RN 12:18 PM Oxygen 2 L/min nasal cannula Sahara Sepulveda RN 12:29 PM Lidocaine 2% 0.5 ml Subcutaneous Tripp Mobley MD, FACC 12:32 PM Heparin 2000 units Nitroglycerin 200 mcg Verapamil 2.5 mg Intraarterial Tripp Mobley MD, FACC 12:47 PM Heparin 3000 units Intravenous Sahara Sepulveda RN 12:48 PM Aggrastat Bolus: 33 ml Intravenous Sahara Sepulveda RN 12:50 PM Nitroglycerin 200 mcg Intracoronary Tripp Mobley MD 12:51 PM Angiomax 0.75mg/kg bolus: 6 ml Intravenous Sahara Sepulveda RN 01:20 PM Hydralazine 10 mg Intravenous Saima Mo RN 01:23 PM Nitroglycerin 200 mcg Intracoronary Tripp Mobley MD 01:42 PM Fentanyl 25 mcg Intravenous Sahara Sepulveda RN 01:52 PM Fentanyl 25 mcg Intravenous Sahara Sepulveda RN 01:55 PM Nitroglycerin 150 mcg Intracoronary Tripp Mobley MD 02:01 PM Nitroglycerin 200 mcg Intracoronary Tripp Mobley MD 02:04 PM Brilinta 180 mg Orally Sahara Sepulveda RN 02:14 PM Zofran 8 mg Intravenous Sahara Sepulveda RN ASA Classification: CLASS II- Mild systemic disease (i.e. well-controlled diabetes, hypertension, asthma, cigarette smoking) Fouzia Score Preprocedure Postprocedure Activity 2- Moves 4 extremities sustained head lift Activity 2- Moves 4 extremities sustained head lift Circulation 2- SBP +/= 20 points of pre-anesthetic level Circulation 2- SBP +/= 20 points of pre-anesthetic level Consciousness 2- Awake and alert oriented x 3 Consciousness 2- Awake and alert oriented x 3 O2 Saturation 2- Able to maintain O2 satruation of 92% on room air O2 Saturation 2- Able to maintain O2 satruation of 92% on room air Respiratory 2- Able to deep breathe and cough well Respiratory 2- Able to deep breathe and cough well Total Score 10 Total Score 10 Contrast Agent: Isovue Diagnostic Contrast: 188 ml Total Contrast: 188 ml Fluoro Dose: 824 mGy Activated Clotting Time Time Seconds to Clot 12:47 PM 173 01:30 PM 400 Procedure Log Time Note Enter By 12:15 PM CathStat 12:15 PM Case Start 12:15 PM Vitals capture started with the following parameters, Patient=Adult, Interval=5 min, Initial Afpbfqfb=226 mmHg, Deflation Rate=5 mmHg, Cuff placed on Left Arm 12:16 PM HR=79 bpm, DNNM=796/89 mmhg, SpO2=97.0 %, Resp=21 B/min, Comment=NSR 12:17 PM Pt arrived to dock or pier laborer 1 at 12:17 [email or web address] 12:17 PM Bianca Brewer RT (R) Position: Monitor Time in: 12:17 [email or web address] 12:17 PM Shanel Fuentes RT (R) Position: Scrub Time in: 12:17 [email or web address] 12:17 PM Sahara Sepulveda RN Position: Solidworks Drafter Time in: 12:17 [email or web address] 12:17 PM Wendy Christopher RT Position: Monitor Time in: 12:17 [email or web address] 12:17 PM Patient charges- Angio tray pack, Navilyst 3mm J, Pulse Oximetry and ACIST tubing and transducer [email or web address] 12:18 PM Case Delayed No [email or web address] 12:18 PM Hair removed from procedure site in holding area using clippers. Right wrist prepped with Chloraprep by Wendy Christopher, safety strap applied then patient was draped. Skin intact. [email or web address] 12:18 PM Hair removed from procedure site in holding area using clippers. Right groin prepped with Chloraprep by Wendy Christopher, safety strap applied then patient was draped. Skin intact. [email or web address] 12:18 PM Physican paged/called 12:18. [email or web address] 12:18 PM Physician arrived 12:18 [email or web address] 12:18 PM ASA Class CLASS II- Mild systemic disease (i.e. well-controlled diabetes, hypertension, asthma, cigarette smoking) [email or web address] 12:18 PM Meet and greet completed [email or web address] 12:18 PM Sign in performed according to hospital policy. [email or web address] 12:18 PM Procedure start 12:18 [email or web address] 12:18 PM Time: 12:18 Versed 2 mg Intravenous Given by Sahara Sepulveda RN [email or web address] 12:18 PM Time: 12:18 Fentanyl 50 mcg Intravenous Given by Sahara Sepulveda RN [email or web address] 12:18 PM Time: 12:18 Oxygen on at 2 L/min per nasal cannula by Sahara Sepulveda RN [email or web address] 12:19 PM Time: 12:19 Patient comfortable and pain free: Yes [email or web address] 12:19 PM Time: 12:19LOC: 4 = Oriented but drowsy [email or web address] 12:21 PM HR=75 bpm, JZDX=792/94 mmhg, SpO2=99.0 %, Resp=15 B/min, Comment=NSR 12:22 PM Pressure channel 1 zeroed. 12:26 PM HR=72 bpm, XEXT=252/83 mmhg, SpO2=98.0 %, Resp=18 B/min, Comment=NSR 12:29 PM Time out performed according to hospital policy [email or web address] 12:29 PM Time: 12:29 0.5 ml Lidocaine 2% to right radial Subcutaneous Given by Tripp Mobley MD, [facility] [email or web address] 12:30 PM HR=73 bpm, LBOU=259/93 mmhg, DrZ2=368.0 %, Resp=14 B/min, Comment=NSR 12:32 PM Access obtained by percutaneous puncture. 6Fr 10cm Terumo Glidesheath sheath placed in right Radial artery. [id number] [email or web address] 12:32 PM Time: 12:32 Patient given 2,000 units Heparin, 200 mcg Nitroglycerin, and 2.5 mg Verapamil Intraarterial by Tripp Mobley MD, [facility] [email or web address] 12:32 PM 0.035 260cm Navilyst 3mmJ wire [id number] [email or web address] 12:33 PM 5Fr TIG catheter inserted over the wire DN [email or web address] 12:34 PM LCA angiography performed in multiple views. [email or web address] 12:34 PM Recorded Pressure: Ao, HR=74, Condition=Condition 1 (Aorta) Ao 125/63/88 12:34 PM Time: 12:19 Patient comfortable and pain free: Yes [email or web address] 12:34 PM Time: 12:19LOC: 4 = Oriented but drowsy [email or web address] 12:35 PM Recorded Pressure: Ao, HR=74, Condition=Condition 1 (Aorta) Ao 118/67/89 12:36 PM HR=72 bpm, YASR=651/81 mmhg, SpO2=98.0 %, Resp=16 B/min, Comment=NSR 12:36 PM Lesion found in Proximal LAD. Pre Stenosis: 90 Pre YADIRA Flow: [email or web address] 12:36 PM Lesion found in Mid Circumflex. Pre Stenosis: 90 Pre YADIRA Flow: [email or web address] 12:37 PM Lesion found in 1st Marginal. Pre Stenosis: 80 Pre YADIRA Flow: [email or web address] 12:37 PM Recorded Pressure: Ao, HR=72, Condition=Condition 1 (Aorta) Ao 100/50/72 12:37 PM Recorded Pressure: Ao, HR=72, Condition=Condition 1 (Aorta) Ao 146/91/117 12:37 PM Catheter repositioned to RCA. [email or web address] 12:38 PM Lesion found in Proximal RCA. Pre Stenosis: 99 Pre YADIRA Flow: [email or web address] 12:38 PM Catheter removed [email or web address] 12:38 PM 5Fr Pigtail catheter inserted over the wire DN [email or web address] 12:39 PM Pressure channel 1 zeroed. 12:39 PM Recorded Pressure: LV, HR=73, Condition=Condition 1 (Left Ventricle) LV 153/12/19 12:39 PM Recorded Pressure: LV, Ao, HR=60, Condition=Condition 1 (Left Ventricle) LV 178/16/26, (Aorta) Ao 156/23/99 12:39 PM Recorded Pressure: LV, Ao, HR=74, Condition=Condition 1 (Left Ventricle) LV 175/91/96, (Aorta) Ao 173/90/126 12:40 PM HR=74 bpm, HZTE=520/85 mmhg, SpO2=99.0 %, Resp=10 B/min, Comment=NSR 12:44 PM Catheter removed [email or web address] 12:45 PM 6Fr IM Runway guide catheter was used to cannulate the PCI vessel successfully. reused? No [email or web address] 12:45 PM .014 PT Graphix 182cm guide wire across target lesion- successful. reused? No [email or web address] 12:45 PM Inflation device was opened. [email or web address] 12:[address] Mobley consulted with Dr. Rosario to decide what would be best for patient. [email or web address] 12:45 PM HR=73 bpm, VLIB=110/92 mmhg, SpO2=99.0 %, Resp=14 B/min, Comment=NSR 12:47 PM At 12:47 the ACT was 173 seconds. [email or web address] 12:47 PM Time: 12:47 Heparin 3000 units Intravenous Given by Sahara Sepulveda RN [email or web address] 12:48 PM Time: 12:48 Aggrastat Bolus: 33 ml Intravenous Given by Sahara Sepulveda RN Jones pump [email or web address] 12:48 PM 2.0 mm x 12 mm Emerge Monorail balloon across target lesion- successful. reused? No [email or web address] 12:49 PM Recorded Pressure: Ao, HR=74, Condition=Condition 1 (Aorta) Ao 197/103/142 12:49 PM Time: 12:34LOC: [email or web address] 12:49 PM Time: 12:34 Patient comfortable and pain free: Yes [email or web address] 12:50 PM Balloon inflated @ 14 jyotsna for 20 seconds [email or web address] 12:50 PM Time: 12:50 Nitroglycerin 200 mcg Intracoronary Given by Tripp Mobley MD [email or web address] 12:51 PM HR=73 bpm, KRSM=886/81 mmhg, SpO2=99.0 %, Resp=13 B/min, Comment=NSR 12:52 PM Time: 12:51 Angiomax 0.75mg/kg bolus: 6 ml Intravenous Given by Sahara Sepulveda RN Jones pump [email or web address] 12:52 PM Balloon catheter removed intact. [email or web address] 12:54 PM Coronary Dominance: right [email or web address] 12:56 PM HR=75 bpm, TLIG=800/99 mmhg, SpO2=99.0 %, Resp=12 B/min, Comment=NSR 12:57 PM 2.5mm x 224mm Rebel [employer] bare metal stent across target lesion- successful Lot #[id number] [email or web address] 12:59 PM Stent deployed @ 18 jyotsna for 23 seconds [email or web address] 01:01 PM Balloon catheter removed intact. [email or web address] 01:01 PM HR=76 bpm, VFBT=006/97 mmhg, SpO2=99.0 %, Resp=13 B/min, Comment=NSR 01:01 PM 3.75 mm x 6mm NC Emerge balloon across target lesion- successful. reused? No [email or web address] 01:03 PM Balloon inflated @ 20 jyotsna for 23 seconds [email or web address] 01:03 PM Balloon catheter removed intact. [email or web address] 01:04 PM Time: 12:49 Patient comfortable and pain free: Yes [email or web address] 01:04 PM 3.0 mm x 12mm NC Emerge balloon across target lesion- successful. reused? No [email or web address] 01:05 PM Balloon inflated @ 16 jyotsna for 14 seconds [email or web address] 01:05 PM Balloon inflated @ 20 jyotsna for 11 seconds [email or web address] 01:06 PM Balloon catheter removed intact. [email or web address] 01:06 PM HR=77 bpm, EWCK=153/104 mmhg, SpO2=99.0 %, Resp=13 B/min, Comment=NSR 01:07 PM 4.0 mm x 6mm NC Emerge balloon across target lesion- successful. reused? No [email or web address] 01:08 PM Balloon inflated @ 18 jyotsna for 20 seconds [email or web address] 01:08 PM Balloon inflated @ 3 jyotsna for 8 seconds [email or web address] 01:09 PM Balloon inflated @ 12 jyotsna for 8 seconds [email or web address] 01:10 PM Balloon catheter removed intact. [email or web address] 01:11 PM HR=78 bpm, EXOQ=863/98 mmhg, SpO2=99.0 %, Resp=15 B/min, Comment=NSR 01:11 PM Balloon re-inserted. [email or web address] 01:12 PM Balloon inflated @ 12 jyotsna for 8 seconds [email or web address] 01:13 PM Balloon inflated @ 12 jyotsna for 8 seconds [email or web address] 01:13 PM Balloon inflated @ 16 jyotsna for 12 seconds [email or web address] 01:13 PM Balloon inflated @ 16 jyotsna for 8 seconds [email or web address] 01:14 PM Balloon catheter removed intact. [email or web address] 01:15 PM Guide wire removed intact. [email or web address] 01:15 PM Guide catheter removed intact. [email or web address] 01:15 PM 6Fr RBL 3.5 Convey guide catheter was used to cannulate the PCI vessel successfully. reused? No [email or web address] 01:16 PM HR=78 bpm, UVMD=420/104 mmhg, SpO2=99.0 %, Resp=14 B/min 01:17 PM Guidewire re-inserted. [email or web address] 01:19 PM Time: 13:04 Patient comfortable and pain free: Yes [email or web address] 01:20 PM Time: 13:20 Hydralazine 10 mg Intravenous Given by Saima Mo RN [email or web address] 01:20 PM 2.0 balloon re-inserted. [email or web address] :21 PM Balloon inflated @ 10 jyotsna for 13 seconds [email or web address] :21 PM HR=80 bpm, UAYD=588/114 mmhg, SpO2=99.0 %, Resp=14 B/min, Comment=NSR 01:21 PM Balloon inflated @ 14 jyotsna for 17 seconds [email or web address] :22 PM Balloon inflated @ 14 jyotsna for 9 seconds [email or web address] :23 PM Balloon catheter removed intact. [email or web address] 01:23 PM Recorded Pressure: Ao, HR=81, Condition=Condition 1 (Aorta) Ao 148/67/102 01:23 PM 2.5mm x 32mm bare metal stent across target lesion- successful Lot # [id number] 01:23 PM Time: 13:23 Nitroglycerin 200 mcg Intracoronary Given by Tripp Mobley MD 01:26 PM 2.5mm x 28mm Rebpan [employer] bare metal stent across target lesion- successful Lot #[id number] elle 01:26 PM HR=79 bpm, VGCB=004/94 mmhg, SpO2=99.0 %, Resp=17 B/min, Comment=NSR 01:27 PM Stent delivery system removed undeployed intact. [email or web address] 01:28 PM Vitals capture stopped. 01:28 PM Vitals capture started with the following parameters, Patient=Adult, Interval=5 min, Initial Wqirzyxr=894 mmHg, Deflation Rate=5 mmHg, Cuff placed on Left Arm 01:28 PM 2.5 mm x 20mm NC Trek Rx balloon across target lesion- successful. reused? No [email or web address] 01:29 PM HR=77 bpm, NIBP=87/58 mmhg, SeU2=028.0 %, Resp=20 B/min, Comment=NSR 01:29 PM NIBP STAT measurement started. 01:30 PM Balloon inflated @ 12 jyotsna for 11 seconds [email or web address] 01:30 PM At 13:30 the ACT was 400 seconds. [email or web address] 01:30 PM HR=79 bpm, WLFI=822/77 mmhg, SpO2=99.0 %, Resp=22 B/min, Comment=NSR 01:30 PM Balloon inflated @ 12 jyotsna for 7 seconds [email or web address] 01:31 PM Balloon catheter removed intact. [email or web address] 01:31 PM Recorded Pressure: Ao, HR=80, Condition=Condition 1 (Aorta) Ao 139/61/96 01:32 PM Stent re-inserted. [email or web address] 01:33 PM Stent delivery system removed intact. [email or web address] 01:33 PM Stent deployed @ 11 jyotsna for 21 seconds [email or web address] 01:34 PM HR=77 bpm, RFJF=685/89 mmhg, SpO2=99.0 %, Resp=27 B/min, Comment=NSR 01:34 PM Recorded Pressure: Ao, HR=78, Condition=Condition 1 (Aorta) Ao 145/55/96 01:34 PM Time: 13:19 Patient comfortable and pain free: Yes [email or web address] 01:34 PM 2.5 mm x 20mm NC Emerge balloon across target lesion- successful. reused? No [email or web address] 01:36 PM Balloon inflated @ 10 jyotsna for 11 seconds [email or web address] 01:37 PM Balloon inflated @ 10 jyotsna for 8 seconds [email or web address] 01:38 PM Balloon catheter removed intact. [email or web address] 01:38 PM Wire repositioned for LAD. [email or web address] 01:39 PM HR=80 bpm, CTSM=106/76 mmhg, SpO2=99.0 %, Resp=13 B/min, Comment=NSR 01:39 PM Balloon re-inserted 2.0 mm [email or web address] 01:42 PM Balloon inflated @ 6 jyotsna for 16 seconds [email or web address] 01:42 PM Time: 13:42 Fentanyl 25 mcg Intravenous Given by Sahara Sepulveda RN [email or web address] 01:42 PM NIBP STAT measurement started. 01:43 PM HR=83 bpm, UCCG=111/74 mmhg, VsK9=674.0 %, Resp=26 B/min, Comment=NSR 01:44 PM HR=83 bpm, NTID=393/88 mmhg, SpO2=99.0 %, Resp=23 B/min, Comment=NSR 01:46 PM 2.25mm x 24mm Rebel [employer] bare metal stent across target lesion- successful Lot #[id number] [email or web address] 01:47 PM NIBP STAT measurement started. 01:48 PM Stent Deployed @ 18 jyotsna for 17 seconds [email or web address] 01:48 PM HR=85 bpm, CXTD=668/74 mmhg, SpO2=99.0 %, Resp=20 B/min, Comment=NSR 01:48 PM [ Start or Stop Vital ] 01:49 PM Time: 13:34 Patient comfortable and pain free: Yes [email or web address] 01:50 PM HR=82 bpm, WYRE=463/72 mmhg, SpO2=98.0 %, Resp=18 B/min, Comment=NSR 01:50 PM Recorded Pressure: Ao, HR=83, Condition=Condition 1 (Aorta) Ao 161/90/122 01:52 PM Balloon inflated @ 16 jyotsna for 12 seconds [email or web address] 01:52 PM Time: 13:52 Fentanyl 25 mcg Intravenous Given by Sahara Sepulveda RN [email or web address] 01:53 PM Stent delivery system removed intact. [email or web address] 01:54 PM 3.0 mm x 8mm NC Trek Rx balloon across target lesion- successful. reused? No [email or web address] 01:54 PM HR=82 bpm, GIOO=931/72 mmhg, SpO2=97.0 %, Resp=11 B/min, Comment=NSR 01:55 PM Balloon inflated @ 12 jyotsna for 12 seconds [email or web address] 01:55 PM Time: 13:55 Nitroglycerin 150 mcg Intracoronary Given by Tripp Mobley MD [email or web address] 01:56 PM Balloon catheter removed intact. [email or web address] 01:59 PM HR=85 bpm, HITC=445/73 mmhg, SpO2=97.0 %, Resp=16 B/min, Comment=NSR 02:00 PM Recorded ECG: HR=82 Condition=Condition 1 02:01 PM Time: 14:01 Nitroglycerin 200 mcg Intracoronary Given by Tripp Mobley MD [email or web address] 02:01 PM Guide wire removed intact. [email or web address] 02:02 PM Guide catheter removed intact. [email or web address] 02:04 PM HR=84 bpm, MTMK=900/67 mmhg, SpO2=96.0 %, Resp=27 B/min, Comment=NSR 02:04 PM Time: 14:04 Brilinta 180 mg Orally Given by Sahara Sepulveda RN [email or web address] 02:04 PM Time: 13:49 Patient comfortable and pain free: Yes [email or web address] 02:05 PM Procedure completed at 14:05 [email or web address] 02:05 PM Sign out completed: Radiation Dose 824.48 mGy Fluoro Time: 20.4 Isovue 370 - 200ml contrast 188 ml given by Tripp Mobley MD, [facility]. Complications: NoneCardiac Rehab Consult needed: YesConfirmed administered medications: Yes [email or web address] 02:05 PM Isovue 370 - 200ml,1 Bottle(s) used. [email or web address] 02:05 PM Arterial sheath pulled, Vasc Band closure device used and was Successful S/N. [email or web address] 02:05 PM 11 ml air in Vasc Band. [email or web address] 02:05 PM Post ECG NSR [email or web address] 02:05 PM Post Blood Pressure 112/67 [email or web address] 02:05 PM Information taught PCI, Cardiac Cath, and Vasc Band [email or web address] 02:06 PM Education needs Procedure, Plan of Care, and Disease Process [email or web address] 02:06 PM Learning barriers :None [email or web address] 02:06 PM Education Methods Verbal [email or web address] 02:06 PM Education evaluation Able to repeat information [email or web address] 02:06 PM Site status No bleeding/hematoma - Rt Wrist as reported by Shanel Fuentes RT (R) at 14:06 [email or web address] 02:06 PM Report given to Saima MCCARTHY Pt taken to Holding room Room #2. 14:06 [email or web address] 02:06 PM Delay to floor Bed availability [email or web address] 02:06 PM Family placed in consult room. [email or web address] 02:06 PM Complications: None [email or web address] 02:06 PM Fluoro Time: 20.4 [email or web address] 02:07 PM Isovue 370 - 200ml contrast 188 ml given by Tripp Mobley MD, [facility]. [email or web address] 02:07 PM Radiation Dose 824.48 mGy [email or web address] 02:08 PM Reference ECG taken 02:14 PM Time: 14:14 Zofran 8 mg Intravenous Given by Sahara Sepulveda RN [email or web address] 02:14 PM Patient out of room: 14:14 [email or web address] Complications Complication None None Hemodynamics Pressures Site Systolic/A Wave Diastolic/V Wave Mean AO 125 63 88 AO 118 67 89 AO 100 50 72 AO 146 91 117 LV 153 12 19 LV 175 91 96 AO 173 90 126 AO 197 103 142 AO 148 67 102 AO 139 61 96 AO 145 55 96 AO 161 90 122 LV 178 16 26 AO 156 23 99 Post Procedure Information Blood Pressure: 112/67 mmHg Rhythm: NSR Post procedural instructions were given Closure Device Time Device Success/Fail 04/09/2017 2:05:00 PM Mechanical Compression Yes Site Checks Time Location Status Staff Sheath In? Note 02:06 PM Rt Wrist No bleeding/hematoma Shanel Fuentes RT (R) Pulses Time Site Pre-Procedure Post-Procedure Note 04/09/2017 10:31:00 AM Bilateral DP \\T\\ PT 2+ 2+ 04/09/2017 10:31:00 AM Bilateral radial 2+ 2+ Updated by Bianca Brewer, RT(R) on 04/09/2017 2:16:20 PM electronically signed on 04/09/2017 2:17:00 PM with status of Final
[2017-04-09] MEDS ORDERED: *HR* Morphine 2 MG/ML SYRINGE ONE (14:41)
--- NOTE | 2017-04-09 16:46 | Invasive Diagnostic Lab Proc ---
Name: Vinod Aguilar Date of Study: 04/09/2017 Date: 1945 Ht: 68.9in Medical Record#: [id number] Age: 71 Wt: 147.71lb Gender: Male BSA: 1.81 Order #: [id number] BMI: 21.88 Physicians Procedure Physician: Tripp Mobley MD, [facility] Referring MD: Referring MD: Staff Name Position Time In Bianca Brewer RT (R) Monitor 12:17 PM GinaShanel perdomo RT (R) Scrub 12:17 PM Sahara Sepulveda RN Onion Tier 12:17 PM Wendy Christopher RT Monitor 12:17 PM Indications Indication Non-Stemi Procedures Performed Procedure L HRT ARTERY/VENTRICLE ANGIO PRQ CARD BM STENT W/ANGIO 1 VSL PRQ CARD BM STENT W/ANGIO 1 VSL PRQ CARD BM STENT W/ANGIO 1 VSL Pre-Procedure Checklist Informed consent is complete signed and on chart. H\\T\\P is on chart. ID band is on and ID verified with patient. Patient NPO for procedure The procedure was described for the patient and questions were answered. Blood Pressure: 179/88 ECG is on chart. Rhythm: NSR Plan of Care Patient will tolerate the procedure without complications. Adequate level of comfort will be maintained. Hemodynamics will remain stable Patient will recover from procedure without complications. Respiratory function will be maintained. Cardiac rhythm will remain stable. Patient temperature will be maintained. Patient and/or family have verbalized understanding of the procedure. Patient Education Chief Complaint/Reason for Test: Cardiac Cath Developmental Category: Geriatric (65+ years) Developmentally Appropriate for Age: Yes Learning Barriers: None Education Needs: Procedure Education Method: Verbal Information Taught: Cardiac Cath Educational Evaluation: Able to repeat information Intravenous Access Time IV Size Location DC'd Fluid/Drip Rate Units RN 20g 1 /" Patent On Arrival Rt Antecubital 0.9NaCl 25 ml/hr Allergies Penicillins Vital Signs Time BP (mmHg) HR (bpm) O2 Sat. RR (bpm) LOC 169 / 79 80 97 % 14 12:19 PM / % 4 = Oriented but drowsy 12:19 PM / % 4 = Oriented but drowsy 12:34 PM / % 12:30 PM 163 / 93 73 100 % 14 12:36 PM 145 / 81 72 98 % 16 12:40 PM 155 / 85 74 99 % 10 12:45 PM 169 / 92 73 99 % 14 12:51 PM 172 / 81 73 99 % 13 12:56 PM 172 / 99 75 99 % 12 01:01 PM 175 / 97 76 99 % 13 01:06 PM 181 / 104 77 99 % 13 01:11 PM 189 / 98 78 99 % 15 01:16 PM 191 / 104 78 99 % 14 01:54 PM 126 / 72 82 97 % 11 01:59 PM 129 / 73 85 97 % 16 02:04 PM 112 / 67 84 96 % 27 12:16 PM 179 / 89 79 97 % 21 12:21 PM 165 / 94 75 99 % 15 12:26 PM 154 / 83 72 98 % 18 01:21 PM 191 / 114 80 99 % 14 01:26 PM 162 / 94 79 99 % 17 01:29 PM 87 / 58 77 100 % 20 01:30 PM 138 / 77 79 99 % 22 01:34 PM 151 / 89 77 99 % 27 01:39 PM 130 / 76 80 99 % 13 01:43 PM 114 / 74 83 100 % 26 01:44 PM 150 / 88 83 99 % 23 01:48 PM 109 / 74 85 99 % 20 01:50 PM 139 / 72 82 98 % 18 02:30 PM 173 / 95 86 100 % 21 5 = Fully awake and oriented or at pre-proc level 02:45 PM 169 / 89 83 100 % 19 5 = Fully awake and oriented or at pre-proc level 03:00 PM 167 / 84 86 99 % 18 5 = Fully awake and oriented or at pre-proc level 03:15 PM 170 / 97 86 100 % 16 5 = Fully awake and oriented or at pre-proc level 03:30 PM 171 / 97 88 100 % 23 5 = Fully awake and oriented or at pre-proc level 03:45 PM 172 / 96 86 98 % 18 5 = Fully awake and oriented or at pre-proc level 04:00 PM 167 / 97 85 100 % 15 5 = Fully awake and oriented or at pre-proc level 04:15 PM 170 / 97 85 100 % 17 5 = Fully awake and oriented or at pre-proc level 04:30 PM 172 / 99 85 100 % 16 5 = Fully awake and oriented or at pre-proc level Procedural Medications Time Medication Dose Units Method Given By 12:18 PM Versed 2 mg Intravenous Sahara Sepulveda RN 12:18 PM Fentanyl 50 mcg Intravenous Sahara Sepulveda RN 12:18 PM Oxygen 2 L/min nasal cannula Sahara Sepulveda RN 12:29 PM Lidocaine 2% 0.5 ml Subcutaneous Tripp Mobley MD, FAC 12:32 PM Heparin 2000 units Nitroglycerin 200 mcg Verapamil 2.5 mg Intraarterial Tripp Mobley MD, FAC 12:47 PM Heparin 3000 units Intravenous Sahara Sepulveda RN 12:48 PM Aggrastat Bolus: 33 ml Intravenous Sahara Sepulveda RN 12:50 PM Nitroglycerin 200 mcg Intracoronary Tripp Mobley MD 12:51 PM Aggrastat 5mg/100 ml 6 ml/hr Intravenous Sahara Sepulveda RN 01:20 PM Hydralazine 10 mg Intravenous Saima Mo RN 01:23 PM Nitroglycerin 200 mcg Intracoronary Tripp Mobley MD 01:42 PM Fentanyl 25 mcg Intravenous Sahara Sepulveda RN 01:52 PM Fentanyl 25 mcg Intravenous Sahara Sepulveda RN 01:55 PM Nitroglycerin 150 mcg Intracoronary Tripp Mobley MD 02:01 PM Nitroglycerin 200 mcg Intracoronary Tripp Mobley MD 02:04 PM Brilinta 180 mg Orally Sahara Sepulveda RN 02:14 PM Zofran 8 mg Intravenous Sahara Sepulveda RN 02:43 PM Morphine 2 mg Intravenous Sahara Sepulveda RN ASA Classification: CLASS II- Mild systemic disease (i.e. well-controlled diabetes, hypertension, asthma, cigarette smoking) Fouzia Score Preprocedure Postprocedure Activity 2- Moves 4 extremities sustained head lift Activity 2- Moves 4 extremities sustained head lift Circulation 2- SBP +/= 20 points of pre-anesthetic level Circulation 2- SBP +/= 20 points of pre-anesthetic level Consciousness 2- Awake and alert oriented x 3 Consciousness 2- Awake and alert oriented x 3 O2 Saturation 2- Able to maintain O2 satruation of 92% on room air O2 Saturation 2- Able to maintain O2 satruation of 92% on room air Respiratory 2- Able to deep breathe and cough well Respiratory 2- Able to deep breathe and cough well Total Score 10 Total Score 10 Contrast Agent: Isovue Diagnostic Contrast: 188 ml Total Contrast: 188 ml Fluoro Dose: 824 mGy Activated Clotting Time Time Seconds to Clot 12:47 PM 173 01:30 PM 400 Procedure Log Time Note Enter By 12:15 PM CathStat 12:15 PM Case Start 12:15 PM Vitals capture started with the following parameters, Patient=Adult, Interval=5 min, Initial Xehayusz=557 mmHg, Deflation Rate=5 mmHg, Cuff placed on Left Arm 12:16 PM HR=79 bpm, AOMF=258/89 mmhg, SpO2=97.0 %, Resp=21 B/min, Comment=NSR 12:17 PM Pt arrived to quality assurance/r&d lab technician 1 at 12:17 [email or web address] 12:17 PM Bianca Brewer RT (R) Position: Monitor Time in: 12:17 [email or web address] 12:17 PM Shanel Fuentes RT (R) Position: Scrub Time in: 12:17 [email or web address] 12:17 PM Sahara Sepulveda RN Position: Onion Tier Time in: 12:17 [email or web address] 12:17 PM Wendy Christopher Position: Monitor Time in: 12:17 [email or web address] 12:17 PM Patient charges- Angio tray pack, Navilyst 3mm J, Pulse Oximetry and ACIST tubing and transducer [email or web address] 12:18 PM Case Delayed No [email or web address] 12:18 PM Hair removed from procedure site in holding area using clippers. Right wrist prepped with Chloraprep by Wendy Christopher, safety strap applied then patient was draped. Skin intact. [email or web address] 12:18 PM Hair removed from procedure site in holding area using clippers. Right groin prepped with Chloraprep by Wendy Christopher, safety strap applied then patient was draped. Skin intact. [email or web address] 12:18 PM Physican paged/called :18. [email or web address] 12:18 PM Physician arrived 12:18 [email or web address] 12:18 PM ASA Class CLASS II- Mild systemic disease (i.e. well-controlled diabetes, hypertension, asthma, cigarette smoking) [email or web address] 12:18 PM Meet and marek completed [email or web address] 12:18 PM Sign in performed according to hospital policy. [email or web address] 12:18 PM Procedure start 12:18 [email or web address] 12:18 PM Time: 12:18 Versed 2 mg Intravenous Given by Sahara Sepulveda RN [email or web address] 12:18 PM Time: 12:18 Fentanyl 50 mcg Intravenous Given by Sahara Sepulveda RN [email or web address] 12:18 PM Time: 12:18 Oxygen on at 2 L/min per nasal cannula by Sahara Sepulveda RN [email or web address] 12:19 PM Time: 12:19 Patient comfortable and pain free: Yes [email or web address] 12:19 PM Time: 12:19LOC: 4 = Oriented but drowsy [email or web address] 12:21 PM HR=75 bpm, VKXS=950/94 mmhg, SpO2=99.0 %, Resp=15 B/min, Comment=NSR 12:22 PM Pressure channel 1 zeroed. 12:26 PM HR=72 bpm, LQST=479/83 mmhg, SpO2=98.0 %, Resp=18 B/min, Comment=NSR 12:29 PM Time out performed according to hospital policy [email or web address] 12:29 PM Time: 12:29 0.5 ml Lidocaine 2% to right radial Subcutaneous [email or web address] PM HR=73 bpm, OIEW=567/93 mmhg, ZfR1=280.0 %, Resp=14 B/min, Comment=NSR 12:32 PM Access obtained by percutaneous puncture. 6Fr 10cm Terumo Glidesheath sheath placed in right Radial artery. [id number] [email or web address] 12:32 PM Time: 12:32 Patient given 2,000 units Heparin, 200 mcg Nitroglycerin, and 2.5 mg Verapamil Intraarterial [email or web address] 12:32 PM 0.035 260cm Navilyst 3mmJ wire [id number] [email or web address] 12:33 PM 5Fr TIG catheter inserted [facility] the [email or web address] 12[facility]34 PM LCA angiography performed in multiple views. [email or web address] 12:34 PM Recorded Pressure: Ao, HR=74, Condition=Condition 1 (Aorta) Ao 125/63/88 12:34 PM Time: 12:19 Patient comfortable and pain free: Yes [email or web address] 12:34 PM Time: 12:19LOC: 4 = Oriented but drowsy [email or web address] 12:35 PM Recorded Pressure: Ao, HR=74, Condition=Condition 1 (Aorta) Ao 118/67/89 12:36 PM HR=72 bpm, OQGV=197/81 mmhg, SpO2=98.0 %, Resp=16 B/min, Comment=NSR 12:36 PM Lesion found in Proximal LAD. Pre Stenosis: 90 Pre YADIRA Flow: [email or web address] 12:36 PM Lesion found in Mid Circumflex. Pre Stenosis: 90 Pre YADIRA Flow: [email or web address] 12:37 PM Lesion found in 1st Marginal. Pre Stenosis: 80 Pre YADIRA Flow: [email or web address] 12:37 PM Recorded Pressure: Ao, HR=72, Condition=Condition 1 (Aorta) Ao 100/50/72 12:37 PM Recorded Pressure: Ao, HR=72, Condition=Condition 1 (Aorta) Ao 146/91/117 12:37 PM Catheter repositioned to RCA. [email or web address] 12:38 PM Lesion found in Proximal RCA. Pre Stenosis: 99 Pre YADIRA Flow: [email or web address] 12:38 PM Catheter removed [email or web address] 12:38 PM 5Fr Pigtail catheter inserted over the wire [facility] [email or web address] 12:39 PM Pressure channel 1 zeroed. 12:39 PM Recorded Pressure: LV, HR=73, Condition=Condition 1 (Left Ventricle) LV 153/12/19 12:39 PM Recorded Pressure: LV, Ao, HR=60, Condition=Condition 1 (Left Ventricle) LV 178/16/26, (Aorta) Ao 156/23/99 12:39 PM Recorded Pressure: LV, Ao, HR=74, Condition=Condition 1 (Left Ventricle) LV 175/91/96, (Aorta) Ao 173/90/126 12:40 PM HR=74 bpm, NJPC=740/85 mmhg, SpO2=99.0 %, Resp=10 B/min, Comment=NSR 12:44 PM Catheter removed [email or web address] 12:45 PM 6Fr IM Runway guide catheter was used to cannulate the PCI vessel successfully. reused? No [email or web address] 12:45 PM .014 PT Graphix 182cm guide wire across target lesion- successful. reused? No [email or web address] 12:45 PM Inflation device was opened. [email or web address] 12:[address] Mobley consulted with Dr. Rosario to decide what would be best for patient. [email or web address] 12:45 PM HR=73 bpm, BMYV=814/92 mmhg, SpO2=99.0 %, Resp=14 B/min, Comment=NSR 12:47 PM At 12:47 the ACT was 173 seconds. [email or web address] 12:47 PM Time: 12:47 Heparin 3000 units Intravenous Given by Sahara Sepulveda RN [email or web address] 12:48 PM Time: 12:48 Aggrastat Bolus: 33 ml Intravenous Given by Sahara Sepulveda RN Jones pump [email or web address] 12:48 PM 2.0 mm x 12 mm Emerge [employer] balloon across target lesion- successful. reused? No [email or web address] 12:49 PM Recorded Pressure: Ao, HR=74, Condition=Condition 1 (Aorta) Ao 197/103/142 12:49 PM Time: 12:34LOC: [email or web address] 12:49 PM Time: 12:34 Patient comfortable and pain free: Yes [email or web address] 12:50 PM Balloon inflated @ 14 jyotsna for 20 seconds [email or web address] 12:50 PM Time: 12:50 Nitroglycerin 200 mcg Intracoronary Given by Tripp Mobley MD [email or web address] 12:51 PM HR=73 bpm, GYKG=776/81 mmhg, SpO2=99.0 %, Resp=13 B/min, Comment=NSR 12:52 PM Time: 12:51 Aggrastat 5mg/100ml: 6 ml/hr Intravenous Given by Sahara Sepulveda RN Jones pump [email or web address] 12:52 PM Balloon catheter removed intact. [email or web address] 12:54 PM Coronary Dominance: right [email or web address] 12:56 PM HR=75 bpm, RQGX=397/99 mmhg, SpO2=99.0 %, Resp=12 B/min, Comment=NSR 12:57 PM 2.5mm x 224mm Rebel [employer] bare metal stent across target lesion- successful Lot #[id number] [email or web address] 12:59 PM Stent deployed @ 18 jyotsna for 23 seconds [email or web address] 01:01 PM Balloon catheter removed intact. [email or web address] 01:01 PM HR=76 bpm, JCNG=119/97 mmhg, SpO2=99.0 %, Resp=13 B/min, Comment=NSR 01:01 PM 3.75 mm x 6mm NC Emerge balloon across target lesion- successful. reused? No [email or web address] 01:03 PM Balloon inflated @ 20 jyotsna for 23 seconds [email or web address] 01:03 PM Balloon catheter removed intact. [email or web address] 01:04 PM Time: 12:49 Patient comfortable and pain free: Yes [email or web address] 01:04 PM 3.0 mm x 12mm NC Emerge balloon across target lesion- successful. reused? No [email or web address] 01:05 PM Balloon inflated @ 16 jyotsna for 14 seconds [email or web address] 01:05 PM Balloon inflated @ 20 jyotsna for 11 seconds [email or web address] 01:06 PM Balloon catheter removed intact. [email or web address] 01:06 PM HR=77 bpm, BZXP=568/104 mmhg, SpO2=99.0 %, Resp=13 B/min, Comment=NSR 01:07 PM 4.0 mm x 6mm NC Emerge balloon across target lesion- successful. reused? No [email or web address] 01:08 PM Balloon inflated @ 18 jyotsna for 20 seconds [email or web address] 01:08 PM Balloon inflated @ 3 jyotsna for 8 seconds [email or web address] 01:09 PM Balloon inflated @ 12 jyotsna for 8 seconds [email or web address] 01:10 PM Balloon catheter removed intact. [email or web address] 01:11 PM HR=78 bpm, LTOX=884/98 mmhg, SpO2=99.0 %, Resp=15 B/min, Comment=NSR 01:11 PM Balloon re-inserted. [email or web address] 01:12 PM Balloon inflated @ 12 jyotsna for 8 seconds [email or web address] 01:13 PM Balloon inflated @ 12 jyotsna for 8 seconds [email or web address] 01:13 PM Balloon inflated @ 16 jyotsna for 12 seconds [email or web address] 01:13 PM Balloon inflated @ 16 jyotsna for 8 seconds [email or web address] 01:14 PM Balloon catheter removed intact. [email or web address] 01:15 PM Guide wire removed intact. [email or web address] 01:15 PM Guide catheter removed intact. [email or web address] 01:15 PM 6Fr RBL 3.5 Convey guide catheter was used to cannulate the PCI vessel successfully. reused? No [email or web address] 01:16 PM HR=78 bpm, BZOI=536/104 mmhg, SpO2=99.0 %, Resp=14 B/min 01:17 PM Guidewire re-inserted. [email or web address] 01:19 PM Time: 13:04 Patient comfortable and pain free: Yes [email or web address] 01:20 PM Time: 13:20 Hydralazine 10 mg Intravenous Given by Saima Mo RN [email or web address] 01:20 PM 2.0 balloon re-inserted. [email or web address] 01:21 PM Balloon inflated @ 10 jyotsna for 13 seconds [email or web address] 01:21 PM HR=80 bpm, ABSJ=211/114 mmhg, SpO2=99.0 %, Resp=14 B/min, Comment=NSR :21 PM Balloon inflated @ 14 jyotsna for 17 seconds 01:22 PM Balloon inflated @ 14 jyotsna for 9 seconds :23 PM Balloon catheter removed intact. elle:23 PM Recorded Pressure: Ao, HR=81, Condition=Condition 1 (Aorta) Ao 148/67/102 01:23 PM 2.5mm x 32mm bare metal stent across target lesion- successful Lot # [id number] 01:23 PM Time: 13:23 Nitroglycerin 200 mcg Intracoronary Given by Tripp Mobley MD 01:26 PM 2.5mm x 28mm Rebel [employer] bare metal stent across target lesion- successful Lot #[id number] [email or web address] 01:26 PM HR=79 bpm, VGIV=695/94 mmhg, SpO2=99.0 %, Resp=17 B/min, Comment=NSR 01:27 PM Stent delivery system removed undeployed intact. :28 PM Vitals capture stopped. 01:28 PM Vitals capture started with the following parameters, Patient=Adult, Interval=5 min, Initial Effqtevr=539 mmHg, Deflation Rate=5 mmHg, Cuff placed on Left Arm 01:28 PM 2.5 mm x 20mm NC Trek Rx balloon across target lesion- successful. reused? No elle 01:29 PM HR=77 bpm, NIBP=87/58 mmhg, AbK6=910.0 %, Resp=20 B/min, Comment=NSR 01:29 PM NIBP STAT measurement started. 01:30 PM Balloon inflated @ 12 jyotsna for 11 seconds 01:30 PM At 13:30 the ACT was 400 seconds. [email or web address] 01:30 PM HR=79 bpm, XAJE=845/77 mmhg, SpO2=99.0 %, Resp=22 B/min, Comment=NSR 01:30 PM Balloon inflated @ 12 jyotsna for 7 seconds [email or web address] 01:31 PM Balloon catheter removed intact. [email or web address] 01:31 PM Recorded Pressure: Ao, HR=80, Condition=Condition 1 (Aorta) Ao 139/61/96 01:32 PM Stent re-inserted. [email or web address] 01:33 PM Stent delivery system removed intact. [email or web address] 01:33 PM Stent deployed @ 11 jyotsna for 21 seconds [email or web address] 01:34 PM HR=77 bpm, RWAW=009/89 mmhg, SpO2=99.0 %, Resp=27 B/min, Comment=NSR 01:34 PM Recorded Pressure: Ao, HR=78, Condition=Condition 1 (Aorta) Ao 145/55/96 01:34 PM Time: 13:19 Patient comfortable and pain free: Yes [email or web address] 01:34 PM 2.5 mm x 20mm NC Emerge balloon across target lesion- successful. reused? No [email or web address] 01:36 PM Balloon inflated @ 10 jyotsna for 11 seconds [email or web address] 01:37 PM Balloon inflated @ 10 jyotsna for 8 seconds [email or web address] 01:38 PM Balloon catheter removed intact. [email or web address] 01:38 PM Wire repositioned for LAD. [email or web address] 01:39 PM HR=80 bpm, AVPE=309/76 mmhg, SpO2=99.0 %, Resp=13 B/min, Comment=NSR 01:39 PM Balloon re-inserted 2.0 mm [email or web address] 01:42 PM Balloon inflated @ 6 jyotsna for 16 seconds [email or web address] 01:42 PM Time: 13:42 Fentanyl 25 mcg Intravenous Given by Sahara Sepulveda RN [email or web address] 01:42 PM NIBP STAT measurement started. 01:43 PM HR=83 bpm, IEPI=079/74 mmhg, WlZ7=875.0 %, Resp=26 B/min, Comment=NSR 01:44 PM HR=83 bpm, XQCJ=667/88 mmhg, SpO2=99.0 %, Resp=23 B/min, Comment=NSR 01:46 PM 2.25mm x 24mm Rebel [employer] bare metal stent across target lesion- successful Lot #[id number] [email or web address] 01:47 PM NIBP STAT measurement started. 01:48 PM Stent Deployed @ 18 jyotsna for 17 seconds [email or web address] 01:48 PM HR=85 bpm, VWBK=956/74 mmhg, SpO2=99.0 %, Resp=20 B/min, Comment=NSR 01:48 PM [ Start or Stop Vital ] 01:49 PM Time: 13:34 Patient comfortable and pain free: Yes [email or web address] 01:50 PM HR=82 bpm, UNIX=595/72 mmhg, SpO2=98.0 %, Resp=18 B/min, Comment=NSR 01:50 PM Recorded Pressure: Ao, HR=83, Condition=Condition 1 (Aorta) Ao 161/90/122 01:52 PM Balloon inflated @ 16 jyotsna for 12 seconds [email or web address] 01:52 PM Time: 13:52 Fentanyl 25 mcg Intravenous Given by Sahara Sepulveda RN [email or web address] 01:53 PM Stent delivery system removed intact. [email or web address] 01:54 PM 3.0 mm x 8mm NC Trek Rx balloon across target lesion- successful. reused? No [email or web address] 01:54 PM HR=82 bpm, FYAQ=237/72 mmhg, SpO2=97.0 %, Resp=11 B/min, Comment=NSR 01:55 PM Balloon inflated @ 12 jyotsna for 12 seconds [email or web address] 01:55 PM Time: 13:55 Nitroglycerin 150 mcg Intracoronary Given by Tripp Mobley MD [email or web address] 01:56 PM Balloon catheter removed intact. [email or web address] 01:59 PM HR=85 bpm, RCQP=926/73 mmhg, SpO2=97.0 %, Resp=16 B/min, Comment=NSR 02:00 PM Recorded ECG: HR=82 Condition=Condition 1 02:01 PM Time: 14:01 Nitroglycerin 200 mcg Intracoronary Given by Tripp Mobley MD [email or web address] 02:01 PM Guide wire removed intact. [email or web address] 02:02 PM Guide catheter removed intact. [email or web address] 02:04 PM HR=84 bpm, LBRT=588/67 mmhg, SpO2=96.0 %, Resp=27 B/min, Comment=NSR 02:04 PM Time: 14:04 Brilinta 180 mg Orally Given by Sahara Sepulveda RN [email or web address] 02:04 PM Time: 13:49 Patient comfortable and pain free: Yes [email or web address] 02:05 PM Procedure completed at 14:05 [email or web address] 02:05 PM Sign out completed: Radiation Dose 824.48 mGy Fluoro Time: 20.4 Isovue 370 - 200ml contrast 188 ml given by Tripp Mobley MD, FACC. Complications: NoneCardiac Rehab Consult needed: YesConfirmed administered medications: Yes [email or web address] 02:05 PM Isovue 370 - 200ml,1 Bottle(s) used. [email or web address] 02:05 PM Arterial sheath pulled, Vasc Band closure device used and was Successful S/N. [email or web address] 02:05 PM 11 ml air in Vasc Band. [email or web address] 02:05 PM Post ECG NSR [email or web address] 02:05 PM Post Blood Pressure 112/67 [email or web address] 02:05 PM Information taught PCI, Cardiac Cath, and Vasc Band [email or web address] 02:06 PM Education needs Procedure, Plan of Care, and Disease Process [email or web address] 02:06 PM Learning barriers :None [email or web address] 02:06 PM Education Methods Verbal [email or web address] 02:06 PM Education evaluation Able to repeat information [email or web address] 02:06 PM Site status No bleeding/hematoma - Rt Wrist as reported by Shanel Fuentes RT (R) at 14:06 [email or web address] 02:06 PM Report given to Saima MCCARTHY Pt taken to Holding room Room #2. 14:06 [email or web address] 02:06 PM Delay to floor Bed availability [email or web address] 02:06 PM Family placed in consult room. [email or web address] 02:06 PM Complications: None [email or web address] 02:06 PM Fluoro Time: 20.4 [email or web address] 02:07 PM Isovue 370 - 200ml contrast 188 ml given by Tripp Mobley MD, [facility]. [email or web address] 02:07 PM Radiation Dose 824.48 mGy [email or web address] 02:08 PM Reference ECG taken 02:14 PM Time: 14:14 Zofran 8 mg Intravenous Given by Sahara Sepulveda RN [email or web address] 02:14 PM Patient out of room: 14:14 [email or web address] 02:30 PM received patient to holding room. monitors applied. Patient refuses tray at this time d/t nausea. c/o chest pain 5/10. post ekg obtained. [facility] 02:30 PM Complaint: Pain; Pain Score: 5 (1-10); Pain Location: Chest; Relief Measure: Medication reji 02:40 PM Order received for 2mg of morphine iv. reji 02:43 PM Time: 14:43 Morphine 2 mg Intravenous Given by Sahara Sepulveda RN 02:49 PM at bedside reji 03:10 PM Pain med not effective. Complaint: Pain; Pain Score: 5 (1-10); Pain Location: Chest; Relief Measure: Reposition. Stated it eases up now and then but still comes back. No changes noted to EKG. Repositioned for comfort and cold rag applied to head [facility] 03:32 PM Medication and repositioning has improved patients pain. Complaint: Pain; Pain Score: 3 (1-10); Pain Location: Chest; Relief Measure: Reposition patient stated it was "starting to ease up now." [facility] 03:49 PM Time: 15:33 Patient comfortable and pain free: Yes [facility] 04:15 PM voided 700ml of urine [facility] 04:23 PM Cardiac rehab Sadie MCCARTHY at bedside [facility] 04:37 PM Report given to Yessica MCCARTHY Pt taken to 2NE Room #19. 16:36 [facility] 04:37 PM Delay to floor Bed availability [facility] 04:37 PM Patient out of room: 16:37 [facility] Complications Complication None Hemodynamics Pressures Site Systolic/A Wave Diastolic/V Wave Mean AO 125 63 88 AO 118 67 89 AO 100 50 72 AO 146 91 117 LV 153 12 19 LV 175 91 96 AO 173 90 126 AO 197 103 142 AO 148 67 102 AO 139 61 96 AO 145 55 96 AO 161 90 122 LV 178 16 26 AO 156 23 99 Post Procedure Information Blood Pressure: 112/67 mmHg Rhythm: NSR Post procedural instructions were given Closure Device Time Device Success/Fail 04/09/2017 2:05:00 PM Mechanical Compression Yes Site Checks Time Location Status Staff Sheath In? Note 02:06 PM Rt Wrist No bleeding/hematoma Shanel Fuentes RT (R) 02:30 PM Rt Wrist No bleeding/ No Hematoma Sahara Sepulveda RN 02:45 PM Rt Wrist No bleeding/ No Hematoma Sahara Sepulveda RN 03:00 PM Rt Wrist No bleeding/ No Hematoma Sahara Sepulveda RN 03:15 PM Rt Wrist No bleeding/ No Hematoma Sahara Sepulveda RN 03:30 PM Rt Wrist No bleeding/ No Hematoma Sahara Sepulveda RN 2ml of air removed from vasc band. 03:45 PM Rt Wrist No bleeding/ No Hematoma Sahara Sepulveda RN 2ml of air removed from vasc band 04:00 PM Rt Wrist No bleeding/ No Hematoma Saima Mo RN 2mls air removed 04:15 PM Rt Wrist No bleeding/ No Hematoma Sahara Sepulveda RN 2mls of air removed from vasc band 04:30 PM Rt Wrist No bleeding/ No Hematoma Sahara Sepulveda RN 2mls of air removed from vasc band Pulses Time Site Pre-Procedure Post-Procedure Note 04/09/2017 10:31:00 AM Bilateral DP \\T\\ PT 2+ 2+ 04/09/2017 10:31:00 AM Bilateral radial 2+ 2+ 04/09/2017 2:30:00 PM Rt Radial 2+ 04/09/2017 2:45:00 PM Rt Radial 2+ 04/09/2017 3:00:00 PM Rt Radial 2+ 04/09/2017 3:15:00 PM Rt Radial 2+ 04/09/2017 3:30:00 PM Rt Radial 2+ 04/09/2017 3:45:00 PM Rt Radial 2+ 04/09/2017 4:00:00 PM Rt Radial 2+ 04/09/2017 4:15:00 PM Rt Radial 2+ 04/09/2017 4:30:00 PM Rt Radial 1+ Updated by Sahara Sepulveda RN on 04/09/2017 4:40:18 PM electronically signed on 04/09/2017 4:41:54 PM with status of Final
--- NOTE | 2017-04-09 16:52 | Electrocardiograph Report ---
[place] [id number] Test Date: 2017-04-07 Pat Name: Vinod Aguilar Department: 105 Room: 3B45 Gender: M [place] Specialist: PRASANTH : 1945 Requested By: Conner Werner Order Number: [id number] Reading MD: Denise Sharma Measurements Intervals [place] Rate: 98 P: 68 [place]: 156 QRS: 68 QRSD: 92 T: 39 QT: 336 QTc: 391 Interpretive Statements SINUS RHYTHM LEFT ATRIAL ENLARGEMENT POSSIBLE RIGHT VENTRICULAR CONDUCTION DELAY Electronically Signed On 04-09-2017 16:50:50 EDT by Denise Sharma
--- NOTE | 2017-04-09 17:39 | Internal Med Progress Note ---
Date of Encounter: 04/09/17 Time of Encounter: 17:39 - Assessment and plan (1) NSTEMI (non-ST elevated myocardial infarction) Current Visit: Yes Status: Acute Assessment and plan: Patient presented with retrosternal chest pain along with troponin leak. Received anticoagulation with IV heparin drip. Cardiology consulted, underwent left heart catheterization today and received stents to LAD, RCA, LCX, will f/ up full cath report. Continue ASA, Brilinta, Imdur, beta-erendira, statin; Continue telemetry monitoring. Monitor cath site for hematoma. 2-D echocardiogram shows preserved EF, mild concentric LVH, mild LV diastolic dysfunction. (2) CAD (coronary artery disease) Current Visit: Yes Status: Chronic Qualifiers: Coronary Disease-Associated Artery/Lesion type: [place] artery [place] vs. transplanted heart: [place] heart Associated angina: without angina Qualified Code(s): I25.10 - Atherosclerotic heart disease of [place] coronary artery without angina pectoris (3) PAD (peripheral artery disease) Current Visit: Yes Status: Chronic (4) Hypertension Current Visit: Yes Status: Chronic Assessment and plan: Blood pressure noted to be fairly controlled. Continue metoprolol and increase Imdur, continue to monitor blood pressure closely. Qualifiers: Hypertension type: essential hypertension Qualified Code(s): I10 - Essential (primary) hypertension (5) CKD (chronic kidney disease), stage III Current Visit: Yes Status: Chronic Assessment and plan: Serum creatinine noted to be at baseline, received IV hydration prior to heart cath; (6) Non-small cell lung cancer Current Visit: Yes Status: Chronic Assessment and plan: Recently diagnosed right upper lobe non-small cell lung carcinoma, followed by oncology as outpatient. Plan to begin chemoradiation, not started yet. Qualifiers: Laterality: right Qualified Code(s): C34.91 - Malignant neoplasm of unspecified part of right bronchus or lung (7) Anemia Current Visit: Yes Status: Chronic Qualifiers: Anemia type: unspecified type Qualified Code(s): D64.9 - Anemia, unspecified (8) Mixed hyperlipidemia Current Visit: Yes Status: Chronic - Subjective Interval history: Just came back from cardiac catheterization; reports very mild retrosternal chest pain; no right wrist pain/swelling; no dyspnea, dizziness; - Constitutional Vitals: Temp Pulse Resp BP Pulse Ox 97.7 F 90 16 138/81 98 04/09/17 16:57 06/05/17 17:37 04/09/17 17:37 04/09/17 17:37 04/09/17 17:37 General appearance: Present: A&O X 3, answers questions appropriately - Respiratory Respiratory exam: Present: CTAB. Absent: accessory muscle use, rales, rhonchi, wheezes - Cardiovascular Cardiovascular exam: Present: RRR, +S1, +S2. Absent: diastolic murmur, gallop, rubs, systolic murmur - GI/Abdominal GI/Abdominal exam: Present: normal bowel sounds, soft, no peritoneal signs. Absent: distended, tenderness - Extremities Exam Extremities exam: Present: warm, radial pulses palpable and symetrical. Absent : calf tenderness, cyanotic, pedal edema Internal Medicine: Result - Labs CBC & Chem 7: 04/09/17 01:19 04/09/17 00:15 Labs: Short CBC 04/09/17 Range/Units 01:19 WBC 11.6 H (4.3-11.1) K/mcL Hgb 8.2 L (12.9-16.9) g/dL Hct 26.3 L (37.5-50.1) % Plt Count 324 (140-400) K/mcL Neutrophils # 7.6 (1.6-8.9) K/mcL BMP 04/09/17 00:15 Sodium 138 Potassium 4.5 Chloride 108 Carbon Dioxide 21 BUN 32 H Creatinine 1.20 Glucose 100 H Calcium 8.9 Cardiac Enzymes 04/09/17 Range/Units 00:15 Troponin I 0.78 H* (0-0.03) ng/mL - ABG Interpretation ABG results: PT/INR, D-dimer PT 11.4 Seconds (9.4-12.1) 04/07/17 20:38 Consult Discharge Plan - Plan Referrals: Vinny Campbell MD [Primary Care Provider] -
[2017-04-09] MEDS: *HR* Ticagrelor 90 MG TABLET PO SCH (21:31)
[2017-04-10 06:00] LABS: Basophils % 0.2 %; Eosinophils % 0.1 %; Hematocrit 27.8 % (37.5-50.1); Hemoglobin 8.5 g/dL (12.9-16.9); Immature Granulocytes % 0.6 % (0-4); Lymphocytes # 0.8 K/mcL (0.6-4.6); Mean Corpuscular HGB Conc 30.6 g/dL (31.6-35.5); Mean Corpuscular Hemoglobin 26.8 pg (28.0-33.3); Mean Corpuscular Volume 87.7 fL (83.0-100.0); Mean Platelet Volume 10.2 fL (9.4-12.4); Monocytes # 0.6 K/mcL (0.0-1.3); Monocytes % 5.3 %; Neutrophils # 10.3 K/mcL (1.6-8.9); Platelet Count 359 K/mcL (140-400); Red Blood Count 3.17 M/mcL (4.19-5.50); Red Cell Distribution Width 14.7 % (11.5-14.5); Segmented Neutrophils % 86.8 %
[2017-04-10 06:14] LABS: BUN/Creatinine Ratio 21 (6-26); Blood Urea Nitrogen 22 mg/dL (8-26); Carbon Dioxide 24 mEq/L (19-29); Chloride 104 mEq/L (98-109); Glucose 111 mg/dL (70-99); Osmolality,Calculated 288 (280-300); Potassium 4.4 mEq/L (3.5-4.5); Sodium 137 mEq/L (136-145); eGFR For African Americans > 60 (> 60); eGFR For Non-African Americans > 60 (> 60)
[2017-04-10 07:06] VITALS: BP 149/94
--- NOTE | 2017-04-10 08:30 | Invasive Diagnostic Lab ---
Name: Vinod Aguilar Date of Study: 04/09/2017 Date: 1945 Ht: 175.0 cm /68.9 in Medical Record#: [id number] Age: 71 Wt: 67. kg / 147.71 lb Account/Order#: [id number] Gender: Male BSA: 1.81 Order #: [id number] Fluoro Dose: 824 mGy BMI: 21.88 Procedure Physician: Tripp Mobley MD, [facility] Referring MD: Referring MD: Procedures Performed: LEFT HEART CATH Stent w/ PTCA Single Major Vessel - proximal LAD BMS Stent w/ PTCA Single Major Vessel - mid circumflex BMS Stent w/ PTCA Single Major Vessel - proximal RCA BMS Indications: Non-Stemi Impressions: There is severe three vessel coronary artery disease. Consulted cardiac surgery - Dr. Rosario - and discussed anatomy as well as patient's history, heart team decision to proceed with multivessel PCI Patient had successful PTCA/Bare Metal Stent placement in the proximal RCA.Patient had successful PTCA/Bare Metal Stent placement in the mid Circ.Patient had successful PTCA/Bare Metal Stent placement in the proximal LAD. Bare metal stents utilized because of normocytic anemia likely secondary to his stage 3 lung cancer without evidence of bleeding. Patient is planned to start chemoradiation soon. Recommendations: Optimal medical therapy of patient's disease. Aggressive risk factor modification. History/Risk Factors: lung CA CAD CKD anemia Hypertension Dyslipidemia Peripheral Vascular Disease Procedure Access obtained in the right Radial artery by percutaneous puncture Patient had successful PTCA/Bare Metal Stent placement in the proximal RCA.Patient had successful PTCA/Bare Metal Stent placement in the mid Circ.Patient had successful PTCA/Bare Metal Stent placement in the proximal LAD. Complications: None, None Contrast: Isovue 188ml Closure Device: Mechanical Compression Hemodynamics: Pressures Site Systolic/ A Wave Diastolic/ V Wave End Diastolic/ Mean HR AO 125 63 88 74 AO 118 67 89 74 AO 100 50 72 72 AO 146 91 117 72 LV 153 12 19 73 LV 175 91 96 72 AO 173 90 126 75 AO 197 103 142 74 AO 148 67 102 81 AO 139 61 96 80 AO 145 55 96 78 AO 161 90 122 83 LV 178 16 26 70 AO 156 23 99 52 Coronary Dominance: Right Lesion Findings/Interventions * Left Main Coronary Artery There is a 30% stenosis in the LMCA. * Left Anterior Descending There is a 95% stenosis in the Proximal LAD. The lesion has no thrombus present. An intervention was performed on the Proximal LAD with a final stenosis of 0%. There were no lesion complications. The final YADIRA flow was 3. Jailed diagonal 1. Proximal portion of stent postdilated with 3.0 NC. * Circumflex There is a 28 mm long, 90% stenosis in the Mid Circumflex. The lesion has no thrombus present. An intervention was performed on the Mid Circumflex with a final stenosis of 0%. There were no lesion complications. The final YADIRA flow was 3. There is a 60-70% stenosis in the ostial-proximal 1st Marginal. * Right Coronary Artery There is a 24 mm long, 99% stenosis in the Proximal RCA. The lesion has a YADIRA flow of 2 and has no thrombus present. This lesion is further described as discrete. An intervention was performed on the Proximal RCA with a final stenosis of 0%. There were no lesion complications. The final YADIRA flow was 3. There is a 50-60% stenosis in the Mid RCA. Proximal portion of stent postdilated with 4.0 NC with remainder postdilated with 3.75NC. Mild disease in the R PDA Interventional Device(s) Vessel Segment Type Name Diameter (mm) Length (mm) Proximal LAD Bare Metal Stent Rebel Angle [employer] 2.25 24 Proximal LAD Balloon Emerge Monorail 2 12 Proximal LAD Balloon NC Trek Rx 3 8 Mid Circumflex Bare Metal Stent Rebel Angle [employer] 2.5 28 Mid Circumflex Balloon NC Trek Rx 2.5 20 Mid Circumflex Balloon Emerge Monorail 2 12 Mid Circumflex Balloon NC Emerge 2.5 20 Proximal RCA Bare Metal Stent Rebel Angle [employer] 2.5 24 Proximal RCA Balloon NC Emerge 3.75 6 Proximal RCA Balloon NC Emerge 3 12 Proximal RCA Balloon NC Emerge 4 6 Updated by RT Vernon(R) on 04/09/2017 2:14:53 PM Tripp Mobley MD, FACC electronically signed on 04/10/2017 8:25:24 AM with status of Final
[2017-04-10] MEDS: *HR* Ticagrelor 90 MG TABLET PO SCH (09:13)
[2017-04-10] MEDS: Aspirin Enteric Coated 81 MG Tablet PO SCH (09:13)
--- NOTE | 2017-04-10 11:53 | Cardiology Progress Note ---
Date of Encounter: 04/10/17 Time of Encounter: 11:49 Assessment and Plan (1) NSTEMI (non-ST elevated myocardial infarction) Current Visit: Yes Status: Acute Troponin 0.29, 1.10, 1.12, 0.78. Complicated by recent diagnosis of non small cell lung cancer, at least stage III. Pt is scheduled to meet with Dr. Gamble this week to discuss chemoradiation and plan for PET scan this week for further evaluation. Given symptoms and NSTEMI, decided to proceed with [facility]. S/P [facility] yesterday--severe [address] surgery was consulted during case-- Dr. Rosario. Anatomy and pt's hx discussed, decision was made to proceed with multivessel PCI. Successful PTCA/BMS in prox RCA, mid Circ, prox LAD. Bare metal stents utilized due to normocytic anemia likely secondary to lung ca. Pt reports episode of chest pain last night around 10PM. Was given IV morphine with relief. Was ambulated in [facility] 11/14 that quickly resolved. Not unusual given severe 3 vessel disease s/p BMS. DAPT (ASA and Brilinta) uninterrupted x 1 month minimum, BB, nitrates. Imdur was increased to 120mg daily yesterday. Intolerant to statins. Brilinta $45/ month, $18 coupon card given, which Nae states they will honor. Pt and repotr $18/mo is affordable. Echo EF preserved. Right radial access site healing well. No bleeding, hematoma or ecchymosis noted. Cardiology signing off. Reconsult PRN. Follow-up as outpt in 1 week. (2) CKD (chronic kidney disease), stage III Current Visit: Yes Status: Chronic Creatinine improved today s/p [facility], 1.03. (3) Non-small cell lung cancer Current Visit: Yes Status: Chronic As above, follow with oncology as outpt. Qualifiers: Laterality: right Qualified Code(s): C34.91 - Malignant neoplasm of unspecified part of right bronchus or lung (4) Anemia Current Visit: Yes Status: Chronic HGB 8.5 today, stable s/p [facility]. HGB has steadily declined since last year--in setting of newly diagnosed lung ca. No evidence of acute bleeding. Bare metal stents placed. Qualifiers: Anemia type: unspecified type Qualified Code(s): D64.9 - Anemia, unspecified Discussion w patient/family: The assessment and plan as outlined above was discussed with the patient and/or family members who expressed understanding and agreement. All questions were answered. Thank you for involving us in the care of your patient. Please call with any questions. I will discuss all the above with Dr. Harrell and make changes as necessary. Subjective Principal diagnosis: NSTEMI, CAD Interval history: S/P C yesterday--severe [address] surgery was consulted during case-- Dr. Rosario. Anatomy and pt's hx discussed, decision was made to proceed with multivessel PCI. Successful PTCA/BMS in prox RCA, mid Circ, prox LAD. Pt reports episode of chest pain last night around 10PM. Was given IV morphine with relief. Was ambulated in [facility] 11/14 that quickly resolved. Objective Vital Signs Temp Pulse Resp BP Pulse Ox 04/10/17 07:05 97.6 F 90 15 149/94 96 04/10/17 05:21 97.6 F 85 16 152/99 97 04/09/17 20:12 98 04/09/17 20:00 97.9 F 89 15 143/85 96 04/09/17 17:37 90 16 138/81 98 04/09/17 17:22 89 16 151/85 97 04/09/17 17:06 89 16 158/95 97 04/09/17 16:57 97.7 F 86 15 156/90 96 Intake and Output 04/09/17 04/10/17 04/10/17 23:59 07:59 15:59 Intake Total 0 / 0 0 / 0 360 / 360 Output Total 350 / 350 300 / 300 400 / 400 Balance -350 / -350 -300 / -300 -40 / -40 Intake: Oral 0 / 0 0 / 0 360 / 360 Output: Urine 350 / 350 300 / 300 400 / 400 Other: Meal Breakfast Percent of Meal Consumed 100% Weight 66.3 kg General: Conversant, No Apparent Distress HEENT: Atraumatic, Normocephaly, Mucus Membranes Moist Neck: No JVD, Normal carotid pulses Cardiac: Reg Rate and Rhythm, Normal S1 and S2, No Murmur Lungs: Normal Breath Sounds, No Wheeze, Rales, Rhonchi Neuro: Alert and responsive, No focal deficits noted Abdomen: Soft, Non-Tender Skin: Other (right radial access site healing well. No bleeding, hematoma or ecchymosis noted.) Musculoskeletal: No Chest Wall Tenderness Extremities: No Clubbing, No Cyanosis, No Edema, Normal Pulses Results 04/10/17 04:24 04/10/17 04:24 Lab Results 04/09/17 04/10/17 04/10/17 Unknown 04:24 04:24 WBC 11.8 H Hgb 8.5 L Hct 27.8 L Plt Count 359 APTT 29.2 D Sodium 137 Potassium 4.4 Chloride 104 Carbon Dioxide 24 BUN 22 D Creatinine 1.03 Glucose 111 H Calcium 9.0 Active Medications Acetaminophen (Tylenol) 650 mg PO Q6HR PRN PRN Reason: Mild Pain (1-3) Stop: 10/07/17 22:49 Aspirin (Aspirin Ec) 81 mg PO DAILY [facility] Stop: 10/08/17 09:01 Last Admin: 04/10/17 09:13 Dose: 81 mg Atorvastatin Calcium (Lipitor) 40 mg PO HS ARMAND Stop: 10/08/17 21:01 Last Admin: 04/09/17 21:31 Dose: 40 mg Sodium Chloride (0.9 % Sodium Chloride) 1,000 mls @ 50 mls/hr IVC .Q20H ARMAND Stop: 10/08/17 09:46 Last Admin: 04/09/17 08:34 Dose: 50 mls/hr Isosorbide Mononitrate (Imdur) 120 mg PO DAILY [facility]AND Stop: 10/09/17 14:17 Last Admin: 04/10/17 09:13 Dose: 120 mg Metoprolol Tartrate (Lopressor) 25 mg PO BID ARMAND Stop: 10/07/17 08:16 Last Admin: 04/10/17 09:13 Dose: 25 mg Morphine Sulfate (Morphine Sulfate) 2 mg IVP Q4HR PRN PRN Reason: Moderate Pain Stop: 10/09/17 14:18 Last Admin: 04/09/17 21:34 Dose: 2 mg Naloxone HCl (Narcan) 0.4 mg IVP Q2MIN PRN PRN Reason: Opioid Reversal Stop: 10/07/17 22:49 Nitroglycerin (Nitroglycerin) 0.4 mg SL Q5MIN PRN PRN Reason: Chest Pain Stop: 10/08/17 08:14 Ondansetron HCl (Zofran) 4 mg IVP Q8HR PRN PRN Reason: Nausea And Vomiting Stop: 10/07/17 22:49 Ticagrelor (Brilinta) 90 mg PO BID ARMAND Stop: 10/09/17 21:01 Last Admin: 04/10/17 09:13 Dose: 90 mg - Imaging and Cardiology Echo: report reviewed Cardiac cath: report reviewed - EKG Interpretation EKG results cardiology: other (24 hour tele AVG HR 85, no significant pauses or arrhythmias noted.) Consult Discharge Plan - Plan Referrals: Vinny Campbell MD [Primary Care Provider] - 04/19/17 10:00 am
--- NOTE | 2017-04-10 13:58 | Discharge Summary ---
<Griffin Davis - Last Filed: 04/10/17 13:52> Date of Encounter: 04/10/17 Time of Encounter: 13:52 - Discharge Diagnosis (1) NSTEMI (non-ST elevated myocardial infarction) Priority: Primary Status: Acute (2) Hypertension Priority: Secondary Status: Chronic Qualifiers: Hypertension type: essential hypertension Qualified Code(s): I10 - Essential (primary) hypertension (3) CKD (chronic kidney disease), stage III Priority: Secondary Status: Chronic (4) CAD (coronary artery disease) Priority: Primary Status: Chronic Qualifiers: Coronary Disease-Associated Artery/Lesion type: [place] artery [place] vs. transplanted heart: [place] heart Associated angina: without angina Qualified Code(s): I25.10 - Atherosclerotic heart disease of [place] coronary artery without angina pectoris (5) PAD (peripheral artery disease) Priority: Secondary Status: Chronic (6) Non-small cell lung cancer Priority: Secondary Status: Chronic Qualifiers: Laterality: right Qualified Code(s): C34.91 - Malignant neoplasm of unspecified part of right bronchus or lung (7) Anemia Priority: Secondary Status: Chronic Qualifiers: Anemia type: unspecified type Qualified Code(s): D64.9 - Anemia, unspecified; D63.1 - Anemia in chronic kidney disease (8) Mixed hyperlipidemia Priority: Secondary Status: Chronic - Discharge Medications Prescriptions: Atorvastatin [Lipitor] 40 mg PO HS #30 tablet Isosorbide MONOnitrate (24 HR) [Imdur] 120 mg PO DAILY #30 tab.er.24h Metoprolol [Lopressor] 25 mg PO BID #60 tablet Ticagrelor [Brilinta] 90 mg PO BID #60 tablet Home Medications: Aspirin Enteric Coated [Aspirin EC] 81 mg PO DAILY 03/09/16 [History] Atorvastatin [Lipitor] 20 mg PO HS 03/09/16 [History] Lisinopril-HCTZ 10-12.5 [Prinzide 10-12.5] 1 tab PO DAILY 04/08/17 [History] Omeprazole [PriLOSEC] 20 mg PO DAILY 04/08/17 [History] Oxycodone HCl/Acetaminophen [Percocet 7.5-325 mg Tablet] 1 tab PO Q6H PRN [History] Atorvastatin [Lipitor] 40 mg PO HS #30 tablet 04/10/17 [Rx] Isosorbide MONOnitrate (24 HR) [Imdur] 120 mg PO DAILY #30 tab.er.24h 04/10/17 [ Rx] Metoprolol [Lopressor] 25 mg PO BID #60 tablet 04/10/17 [Rx] Ticagrelor [Brilinta] 90 mg PO BID #60 tablet 04/10/17 [Rx] Allergies/Adverse Reactions: Allergies Penicillins Allergy (Intermediate, Verified 04/05/17 15:46) Rash Procedures/tests Complete & Pending: Procedures Performed prior 72 hours Category Date Time Status CL Cardiac Catheterization [CL] Routine Channel Installer 04/09/17 10:21 Completed ECG 12 lead ECG [ECG] Routine Y 04/09/17 14:14 Completed EV echocardiogram Routine Y 04/08/17 11:29 Completed Date of admission: 04/07/17 23:18 Primary care physician: Vinny Campbell MD Consults: 04/09/17 10:21 Consult to Cardiac Rehabilitation-Phase1 [CONS] Routine Comment: Reason for Consult: NSTEMI Call Completed: No Discharging clinician: Griffin Davis Anticipated date of discharge: 04/10/17 - Patient Status Disposition: Home, Self-Care Condition: Fair Functional capacity at discharge: uses cane/walker (fall precaution) Overall status at discharge: patient is progressing back to baseline - Discharge Instructions Instructions: Myocardial Infarction (DC), Acute Kidney Injury (DC), Acute Kidney Injury (GEN), Heart Healthy Diet (GEN), Coronary Intravascular Stent Placement (DC), Chronic Hypertension (DC), Anemia (GEN), Coronary Intravascular Stent Placement, Business Sales Consultant (GEN), Heart Healthy Diet, Business Sales Consultant (GEN ) Follow Up With: Moisés Castro MD [Partnered Physician] - 04/12/17 2:30 pm (for non- small cell lung carcinoma) Vinny Campbell MD [Primary Care Provider] - 04/19/17 10:00 am (F/u for hospital d/c f/u.) Silvestre Harrell MD [Partnered Physician] - 04/17/17 10:00 am (F/u for NSTEMI, s /p C with stents placement) - Diet and Activity Activity: resume usual activities as tolerated Diet: low fat, low cholesterol (cardiac diet) Hospital course: Mr. Aguilar is a 71 year old male with a history of non small cell lung cancer and coronary artery disease who presented to ER with left shoulder pain, in the ER he was found to have elevated troponin, admitted to the hospital for NSTEMI, cardiology was consulted, during the hospital stay patient had left heart catheter which revealed severe three-vessel coronary artery disease, CT surgery was consulted during case--Dr. Rosario. Anatomy and pt's hx discussed, decision was made to proceed with multivessel PCI. Successful PTCA/BMS in prox RCA, mid Circ, prox LAD. Bare metal stents utilized due to normocytic anemia likely secondary to lung ca. Cardio recommended DAPT (ASA and Brilinta) uninterrupted x 1 month minimum, BB, nitrates. Imdur was increased to 120mg daily yesterday. For his recent diagnosis of non small cell lung cancer, at least stage III, pt is scheduled to meet with Dr. Gamble this week to discuss chemoradiation and plan for PET scan this week for further evaluation. Pt will be d/c to home in stable conditions with appropriate prescriptions and close f/u with cardio, oncologist and his PCP. - Time Spent with Patient Total time spent providing and/or coordinating discharge services: - Constitutional Vitals: Temp Pulse Resp BP Pulse Ox 97.6 F 90 15 149/94 96 04/10/17 07:05 04/10/17 07:05 04/10/17 07:05 04/10/17 07:05 04/10/17 07:05 General appearance: Present: cooperative, A&O X 3, answers questions appropriately - Respiratory Respiratory exam: Present: CTAB. Absent: chest wall tenderness, rales, rhonchi , wheezes - Cardiovascular Cardiovascular exam: Present: RRR, +S1, +S2. Absent: clicks, gallop, rubs, systolic murmur - GI/Abdominal GI/Abdominal exam: Present: normal bowel sounds, soft, no peritoneal signs. Absent: distended, firm, guarding, rebound, rigid, tenderness - Extremities Exam Extremities exam: Present: normal inspection, warm, radial pulses palpable and symetrical. Absent: calf tenderness, pedal edema, tenderness <Stanton Zambrano - Last Filed: 04/10/17 17:05> Date of Encounter: 04/10/17 - Discharge Diagnosis (1) NSTEMI (non-ST elevated myocardial infarction) Priority: Primary Status: Acute (2) Non-small cell lung cancer Priority: Secondary Status: Chronic Qualifiers: Laterality: right Qualified Code(s): C34.91 - Malignant neoplasm of unspecified part of right bronchus or lung (3) CKD (chronic kidney disease), stage III Status: Chronic (4) CAD (coronary artery disease) Status: Chronic Qualifiers: Coronary Disease-Associated Artery/Lesion type: [place] artery [place] vs. transplanted heart: [place] heart Associated angina: without angina Qualified Code(s): I25.10 - Atherosclerotic heart disease of [place] coronary artery without angina pectoris (5) Hypertension Status: Chronic Qualifiers: Hypertension type: essential hypertension Qualified Code(s): I10 - Essential (primary) hypertension (6) Mixed hyperlipidemia Status: Chronic (7) PAD (peripheral artery disease) Status: Chronic (8) Anemia Status: Chronic Qualifiers: Anemia type: other cause Other causes of anemia: chronic disease, kidney Qualified Code(s): N18.9 - Chronic kidney disease, unspecified; D63.1 - Anemia in chronic kidney disease Procedures/tests Complete & Pending: Procedures Performed prior 72 hours Category Date Time Status CL Cardiac Catheterization [CL] Routine Channel Installer 04/09/17 10:21 Completed ECG 12 lead ECG [ECG] Routine Y 04/09/17 14:14 Completed EV echocardiogram Routine Y 04/08/17 11:29 Completed Date of admission: 04/07/17 23:18 Primary care physician: Vinny Campbell MD Consults: 04/09/17 10:21 Consult to Cardiac Rehabilitation-Phase1 [CONS] Routine Comment: Reason for Consult: NSTEMI Call Completed: No Hospital course: Mr. Aguilar is a 71 year old male - Time Spent with Patient Total time spent providing and/or coordinating discharge services: 38min - Constitutional Vitals: Temp Pulse Resp BP Pulse Ox 97.6 F 90 15 149/94 96 04/10/17 07:05 04/10/17 07:05 04/10/17 07:05 04/10/17 07:05 04/10/17 07:05 - Attending Attestation I examined this patient and my medical decision-making was reviewed with the Resident Physician on 04/10/17. I agree with the documented findings, disposition and treatment plan as described except to the extent set forth below. Mr. Aguilar is s/p cardiac cath with 3 stent placement yesterday. He is feeling OK. No new issues. He is afebrile and ready to go home. Had some chest discomfort with ambulating and Imdur increased. Exam Alert. Comfortable Heart reg no wheeze No edema Plan D/C home today and follow as outpatient.
--- NOTE | 2017-04-10 23:46 | Electrocardiograph Report ---
[place] [id number] Test Date: 2017-04-09 Pat Name: Vinod Aguilar Department: 106 Room: 2NE19 Gender: M Forensic Photographer: : 1945 Requested By: Tripp Mobley Order Number: [id number] Reading MD: Barb Zhang Measurements Intervals [place] Rate: 87 P: 68 IN: 158 QRS: 62 QRSD: 89 T: 17 QT: 374 QTc: 418 Interpretive Statements SINUS RHYTHM LEFT ATRIAL ENLARGEMENT POSSIBLE RIGHT VENTRICULAR CONDUCTION DELAY Electronically Signed On 04-10-2017 23:45:14 EDT by Barb Zhang
== END 2017-04-10 14:49 | disposition home or self-care (01) | DRG 249 ==
LOC: EMEROO 20:26 → 3BNU 20:26 → SUATTDRO 23:18 → 2NENU 04-09 16:51
PROVIDERS: ADMIT Nurse Practitioner Acute Care; ATTEND Internal Medicine

== ENCOUNTER 2017-06-21 17:12 | Inpatient (IN) ==
[2017-06-21] MEDS ORDERED: 0.9 % Sodium Chloride 1,000 ML IVC ONE ×2 (17:52→21:46)
[2017-06-21 18:16] LABS: Hemoglobin 8.4 g/dL (12.9-16.9); Lymphocytes # 0.5 K/mcL (0.6-4.6); Mean Corpuscular HGB Conc 33.6 g/dL (31.6-35.5); Mean Corpuscular Hemoglobin 30.2 pg (28.0-33.3); Mean Corpuscular Volume 89.9 fL (83.0-100.0); Mean Platelet Volume 9.6 fL (9.4-12.4); Platelet Count 124 K/mcL (140-400); Red Blood Count 2.78 M/mcL (4.19-5.50); Red Cell Distribution Width 18.8 % (11.5-14.5)
[2017-06-21 18:31] LABS: Albumin 2.8 g/dL (3.5-5.0); Albumin/Globulin Ratio 0.7 (1.1-2.2); Bilirubin,Total 0.7 mg/dL (0.2-1.2); Calcium 9.2 mg/dL (8.6-10.8); Globulin 4.1 g/dL (2.4-3.5); Potassium 4.4 mEq/L (3.5-4.5); Total Protein 6.9 g/dL (6.0-8.3)
--- NOTE | 2017-06-21 18:57 | Emergency Department Note ---
Disposition Clinical Impression: SIRS (systemic inflammatory response syndrome), Cough Fever Qualifiers: Fever type: unspecified Qualified Code(s): R50.9 - Fever, unspecified Disposition: Admitted As Inpatient Condition: Good Time of Disposition: 19:56 General Adult HPI - General Chief complaint: ED Dizziness Stated complaint: DOMINGO, abnormal labs Time Seen by Provider: 06/21/17 17:41 Source: patient, family Limitations: no limitations Nursing Notes Reviewed: Yes Vital Signs Reviewed: Yes - History of Present Illness HPI Narrative: 71-year-old male history of non-small cell lung carcinoma presents with lightheadedness and low hemoglobin. Recently finished chemoradiation June 08. Since then he has had intermittent episodes of near syncope lightheadedness most when he gets from sitting to standing. He denies any recent fall. Sometimes he also has some increase worker breathing. Currently he does not have any right now. Denies any fever or recent illness. Denies any active bleeding, bloody stool, black tarry sore hemoptysis. Denies any abdominal pain. He has been experiencing some chills and has recently been covering himself with warm blankets the last 3 days. Spoke to his oncologists Dr. Castro and was recommended to be evaluated here. He does have a dry cough that has been persistent since his chemoradiation. He denies any headache, chest pain, shortness of breath. He was also recently admitted for myocardial infarction requiring 3 stents. He is currently taking aspirin and Brilinta. He has a low- grade fever 99.7 and is tachycardic. EKG, chest x-ray, basic labs and IV fluids. Will reassess patient. Pain Scale: 0 - Related Data Home Medications Medication Instructions Recorded Confirmed Aspirin Enteric Coated [Aspirin EC] 81 mg PO DAILY 03/09/16 06/21/17 Omeprazole [PriLOSEC] 20 mg PO DAILY PRN 04/08/17 06/21/17 Oxycodone HCl/Acetaminophen 1 tab PO Q6H PRN 04/08/17 06/21/17 [Percocet 7.5-325 mg Tablet] Nitroglycerin [Nitrostat] 0.4 mg SL AD PRN 04/18/17 06/21/17 Stomatitis Mixture 5 ml PO Q4H PRN 06/21/17 06/21/17 Previous Rx's Medication Instructions Recorded Atorvastatin [Lipitor] 40 mg PO HS #30 tablet 04/10/17 Isosorbide MONOnitrate (24 HR) 120 mg PO DAILY #30 tab.er.24h 04/10/17 [Imdur] Metoprolol [Lopressor] 25 mg PO BID #60 tablet 04/10/17 Ondansetron HCl [Zofran] 4 mg PO Q6H PRN #40 tablet 04/18/17 Prochlorperazine Maleate 10 mg PO Q6HR PRN #40 tablet 04/18/17 [Compazine] Ferrous Sulfate [Iron] 325 mg PO DAILY #30 tablet 05/10/17 Lisinopril [Zestril] 10 mg PO DAILY #30 tablet 05/10/17 Sucralfate [Carafate] 1 gm PO QID #120 tablet 05/22/17 Docusate [Colace] 100 mg PO BID #60 capsule 05/29/17 Ascorbic Acid [Vitamin C] 250 mg PO DAILY #90 tablet 06/07/17 Folic Acid 1 mg PO DAILY #90 tablet 06/07/17 Allergies Allergy/AdvReac Type Severity Reaction Status Date / Time Penicillins Allergy Intermediate Rash Verified 05/31/17 09:17 All systems ED: reviewed and negative except as stated. Review of Systems: As Per HPI Constitutional: Reports: chills, weakness. Denies: fever Cardiovascular: Reports: dyspnea on exertion. Denies: chest pain Respiratory: Reports: dyspnea. Denies: cough Gastrointestinal: Denies: abdominal pain, nausea, vomiting, diarrhea Genitourinary: Denies: urgency, dysuria Musculoskeletal: Denies: back pain, neck pain Integumentary: Denies: rash, abrasion, lesions Neurological: Reports: weakness. Denies: headache, confusion, abnormal gait, vertigo Psychiatric: Denies: anxiety, depression Endocrine: Reports: fatigue Past Medical History - Past Medical History Attestation: Yes The following information was validated with the patient. Source: patient Medical history: Reports: cancer, coronary artery disease, hypertension, peripheral artery disease Psychiatric history: Reports: no psych history - Social History Smoking Status: Former smoker Smokeless Tobacco Status: No Alcohol use: Reports: occasionally Drug use: Reports: none Physical Exam - General Limitations: no limitations General appearance: alert, in no apparent distress - Head Head exam: atraumatic, normocephalic, normal inspection - Eye Eye exam: Present: normal appearance, PERRL, EOMI. Absent: nystagmus - ENT ENT exam: normal exam, normal oropharynx, mucous membranes moist - Neck Neck exam: Present: normal inspection, full ROM, trachea midline. Absent: tenderness - Chest Chest inspection: Present: normal inspection, symmetric chest wall rise. Absent : tenderness, rash - Respiratory Respiratory exam: Present: normal lung sounds bilaterally. Absent: respiratory distress, wheezes, stridor - Cardiovascular Cardiovascular exam: Present: regular rate, normal rhythm, normal heart sounds - Abdominal Exam Abdominal exam: Present: soft, Non-Tender, normal bowel sounds. Absent: tenderness, distention, guarding, rebound, rigidity - Extremities Exam Extremities exam: Present: normal inspection, full ROM, normal capillary refill. Absent: tenderness, pedal edema, calf tenderness - Back Exam Back exam: Present: normal inspection, full ROM. Absent: tenderness, vertebral tenderness - Neurological Exam Neurological exam: Present: alert, oriented X3, CN II-XII intact - Expanded Neurological Exam Patient oriented to: Present: person, place, time Speech: Present: fluid speech Cranial nerves: EOM function (II, III, IV, ): Normal, facial sensation (V): Normal, facial palsy (VII): Normal, gag reflex (IX): Normal, spinal accessory function (XI): Normal, tongue deviation (XII): Normal Motor strength - LUE: 5/5 Motor strength - RUE: 5/5 Motor strength - LLE: 5/5 Motor strength - RLE: 5/5 Upper motor neuron exam: sha neglect: Absent bilaterally, pronator drift: Absent bilaterally Sensory exam upper extremity: light touch: Normal Sensory exam lower extremity: light touch: Normal - Skin Skin exam: Present: warm, dry, intact, normal color, other (minor abrasions to extremities) Course - Reevaluation(s) Reevaluation #1: Patient's initial blood pressure was hypotensive 84/51. Upon recheck it came up 121/62 without any intervention. Since then he has not had any low blood pressure readings. Recheck of her temperature via rectal was elevated 101 Fahrenheit. Chest x-ray shows absence of right upper lobe mass. No obvious signs of pneumonia. He has been reporting a dry cough. As well as experiencing chills. He meets SIRS criteria. He has chronic stable anemia. No leukocytosis it is low at 4.3. Elevation of his creatinine showing a mild acute kidney injury. Other labs or otherwise unremarkable. Due to his symptoms of fever and cough will treat as pneumonia. He to his immunosuppressive state will treat them with vancomycin, Levaquin, cefepime. Reports a rash allergy to penicillin that he experience as a child. Discuss the cross-reactivity in the low incidence of a reaction. They are okay with medication. Will admit him for possible pneumonia. Patient and family are in agreement with this plan. Time: 19:45 - Consultations Consultation #1: Spoke with on-call hospitalist ofelia Garrido to admit for SIRS and cough, covering for possible pneumonia with empiric antibiotics. Awaiting urine sample. No further orders at this time Time: 19:55 Vital Signs Temperature 99.7 F H 06/21/17 17:23 Pulse Rate 118 06/21/17 17:23 Respiratory Rate 14 06/21/17 17:23 Blood Pressure 84/51 06/21/17 17:23 O2 Sat by Pulse Oximetry 98 06/21/17 17:23 Temperature 99.4 F 06/21/17 21:01 Pulse Rate 103 06/21/17 21:01 Respiratory Rate 15 06/21/17 21:01 Blood Pressure 125/76 06/21/17 21:01 O2 Sat by Pulse Oximetry 96 06/21/17 21:01 Oxygen Delivery Oxygen Delivery Room Air Medical Decision Making - Medical Records Medical records reviewed: Yes I reviewed the patient's medical records. - Lab Data Lab results reviewed: Yes I reviewed the patient's lab results. Result diagrams: 06/21/17 18:06 06/21/17 18:06 Lab Results 06/21/17 06/21/17 06/21/17 Range/Units 18:06 18:06 18:06 WBC 4.3 (4.3-11.1) K/mcL RBC 2.78 L (4.19-5.50) M/mcL Hgb 8.4 L (12.9-16.9) g/dL Hct 25.0 L (37.5-50.1) % MCV 89.9 (83.0-100.0) fL MCH 30.2 (28.0-33.3) pg MCHC 33.6 (31.6-35.5) g/dL RDW 18.8 H (11.5-14.5) % Plt Count 124 L (140-400) K/mcL MPV 9.6 (9.4-12.4) fL Seg Neutrophils % 64.0 % Band Neutrophils % 4.0 (0-4) % Lymphocytes % 12.0 % Monocytes % 16.0 % Basophils % 2.0 % Metamyelocytes % 2.0 H (0) % Neutrophils # 2.9 (1.6-8.9) K/mcL Lymphocytes # 0.5 L (0.6-4.6) K/mcL Monocytes # 0.7 (0.0-1.3) K/mcL Basophils # 0.1 (0.0-0.2) K/mcL Platelet Estimate Slight Decrease L (Normal) Anisocytosis 1+ A (Not Present) PT (9.4-12.1) Seconds INR APTT (26.0-36.0) Seconds Sodium 132 L (136-145) mEq/L Potassium 4.4 (3.5-4.5) mEq/L Chloride 99 (98-109) mEq/L Carbon Dioxide 23 (19-29) mEq/L BUN 30 H (8-26) mg/dL Creatinine 1.50 H (0.72-1.25) mg/dL Est GFR ( Amer) 56 L (> 60) Est GFR (Non-Af Amer) 46 L (> 60) BUN/Creatinine Ratio 20 (6-26) Glucose 127 H (70-99) mg/dL Calculated Osmolality 282 (280-300) Calcium 9.2 (8.6-10.8) mg/dL Phosphorus (2.3-4.7) mg/dL Magnesium (1.6-2.6) mg/dL Total Bilirubin 0.7 (0.2-1.2) mg/dL AST 26 (5-34) Units/L ALT 15 (0-55) Units/L Alkaline Phosphatase 74 (38-126) Units/L Troponin I 0.03 (0-0.03) ng/mL Serum Total Protein 6.9 (6.0-8.3) g/dL Albumin 2.8 L (3.5-5.0) g/dL Globulin 4.1 H (2.4-3.5) g/dL Albumin/Globulin Ratio 0.7 L (1.1-2.2) Urine Color (Yellow) Urine Clarity (Clear) Urine pH (5.0-8.0) pH Units Ur Specific Anton (1.010-1.025) Urine Protein (Neg-Trace) mg/dL Urine Glucose (UA) (Normal) mg/dL Urine Ketones (Negative) mg/dL Urine Blood (Negative) Urine Nitrite (Negative) Urine Bilirubin (Negative) Urine Urobilinogen (Normal) mg/dL Ur Leukocyte Esterase (Negative) Urine Microscopic RBC (0-3) per hpf Urine Microscopic WBC (0-3) per hpf Ur Squamous Epith Cells (None-Few) per lpf Urine Bacteria (None-Few) per hpf Hyaline Casts (None-Few) per lpf Urine Yeast Ur Culture Indicated? (NO) 06/21/17 06/21/17 06/21/17 Range/Units 18:06 20:12 21:45 WBC (4.3-11.1) K/mcL RBC (4.19-5.50) M/mcL Hgb (12.9-16.9) g/dL Hct (37.5-50.1) % MCV (83.0-100.0) fL MCH (28.0-33.3) pg MCHC (31.6-35.5) g/dL RDW (11.5-14.5) % Plt Count (140-400) K/mcL MPV (9.4-12.4) fL Seg Neutrophils % % Band Neutrophils % (0-4) % Lymphocytes % % Monocytes % % Basophils % % Metamyelocytes % (0) % Neutrophils # (1.6-8.9) K/mcL Lymphocytes # (0.6-4.6) K/mcL Monocytes # (0.0-1.3) K/mcL Basophils # (0.0-0.2) K/mcL Platelet Estimate (Normal) Anisocytosis (Not Present) PT 12.0 (9.4-12.1) Seconds INR 1.1 APTT 31.2 (26.0-36.0) Seconds Sodium (136-145) mEq/L Potassium (3.5-4.5) mEq/L Chloride (98-109) mEq/L Carbon Dioxide (19-29) mEq/L BUN (8-26) mg/dL Creatinine (0.72-1.25) mg/dL Est GFR ( Amer) (> 60) Est GFR (Non-Af Amer) (> 60) BUN/Creatinine Ratio (6-26) Glucose (70-99) mg/dL Calculated Osmolality (280-300) Calcium (8.6-10.8) mg/dL Phosphorus 2.7 (2.3-4.7) mg/dL Magnesium 1.3 L (1.6-2.6) mg/dL Total Bilirubin (0.2-1.2) mg/dL AST (5-34) Units/L ALT (0-55) Units/L Alkaline Phosphatase (38-126) Units/L Troponin I (0-0.03) ng/mL Serum Total Protein (6.0-8.3) g/dL Albumin (3.5-5.0) g/dL Globulin (2.4-3.5) g/dL Albumin/Globulin Ratio (1.1-2.2) Urine Color Yellow (Yellow) Urine Clarity Cloudy A (Clear) Urine pH 5.5 (5.0-8.0) pH Units Ur Specific Anton 1.023 (1.010-1.025) Urine Protein 100 H (Neg-Trace) mg/dL Urine Glucose (UA) Normal (Normal) mg/dL Urine Ketones 15 H (Negative) mg/dL Urine Blood Small H (Negative) Urine Nitrite Negative (Negative) Urine Bilirubin Negative (Negative) Urine Urobilinogen Normal (Normal) mg/dL Ur Leukocyte Esterase Negative (Negative) Urine Microscopic RBC 0-3 (0-3) per hpf Urine Microscopic WBC 5-15 H (0-3) per hpf Ur Squamous Epith Cells Many H (None-Few) per lpf Urine Bacteria None Seen (None-Few) per hpf Hyaline Casts Moderate H (None-Few) per lpf Urine Yeast Test Not Performed Ur Culture Indicated? YES A (NO) - Radiology Data Radiology results reviewed: Yes I reviewed the patient's radiology results. Chest X-Ray 06/21/17 17:52 IMPRESSION: 1. No acute process. 2. Nonvisualization of the previously identified large right upper lobe mass. D/ / Miguelangel Li MD / Miguelangel Li MD Interpreting Provider: Miguelangel Li MD - EKG Data EKG #1 EKG attestation: Yes I reviewed and interpreted this EKG. EKG results narrative: EKG performed 1726 sinus tachycardia 1 16 bpm, no ST elevations or depression, no T wave inversion, let atrial enlargement, intervals are within normal limits. No old EKG available for comparison. No acute ischemic changes. Attestation Statement - Attestation Attestation: I, Sanket Aguirre, examined this patient and my medical decision-making was reviewed with the OFFICER CAPTAIN/PA/Advanced Practice Nurse/Resident Physician. I agree with the documented findings, disposition and treatment plan as described except to the extent set forth below. 71-year-old male presents to the emergency department with difficulty in breathing, tachycardia. Patient was initially hypotensive on evaluation emergency department. Patient BP improved with observation and IV fluids. Patient did not initially have a fever by oral evaluation of temperature however he did have a fever with rectal temperature. Chest x-ray does not show obvious infiltrate however this is the likely source of his symptoms and will be started on empiric antibiotics emergency department. Patient felt comfortable with this plan and agreed to admission to the hospital for further care and evaluation.
[2017-06-21 19:09] LABS: Basophils # 0.1 K/mcL (0.0-0.2); Monocytes # 0.7 K/mcL (0.0-1.3); Neutrophils # 2.9 K/mcL (1.6-8.9)
[2017-06-21 19:10] LABS: Anisocytosis 1+ (Not Present)
[2017-06-21 19:11] LABS: Platelet Estimate Slight Decrease (Normal)
[2017-06-21] MEDS ORDERED: Levofloxacin 750 MG/150 ML 750 MG/150 ML BAG IVPB ONE (19:28)
[2017-06-21] MEDS ORDERED: Vancomycin 1,000 MG in D5% in Water 250 ML IVPB ONE (19:28)
[2017-06-21 20:27] LABS: Bilirubin,Urine Negative (Negative); Blood,Urine Small (Negative); Clarity,Urine Cloudy (Clear); Color,Urine Yellow (Yellow); Glucose,Urine (UA) Normal (Normal); Ketones,Urine 15 mg/dL (Negative); Leukocyte Esterase,Urine Negative (Negative); Nitrite,Urine Negative (Negative); PH,Urine 5.5 pH Units (5.0-8.0); Protein,Urine 100 mg/dL (Neg-Trace); Specific Gravity,Urine 1.023 (1.010-1.025); Urobilinogen,Urine Normal (Normal)
[2017-06-21 20:29] LABS: Bacteria,Urine None Seen per hpf (None-Few); RBC,Urine 0-3 per hpf (0-3); Squamous Epithelial Cell,Urine Many per lpf (None-Few)
[2017-06-21 20:37] LABS: Hyaline Casts,Urine Moderate per lpf (None-Few)
[2017-06-21] MEDS ORDERED: 0.9 % Sodium Chloride 1,000 ML IVC SCH (20:45)
[2017-06-21] MEDS ORDERED: Famotidine 20 MG TABLET PO SCH (21:00)
[2017-06-21] MEDS ORDERED: Cefepime HCl 2,000 MG in D5% in Water (Mini-Bag+) 100 ML IVPB ONE (21:00)
[2017-06-21] MEDS ORDERED: *HR* OxyCODONE/APAP 7.5/325 TABLET PO PRN (21:15)
--- NOTE | 2017-06-21 21:27 | Internal Med History&Physical ---
<Geovany Clark - Last Filed: 06/21/17 23:01> Date of Encounter: 06/21/17 Time of Encounter: 21:22 Assessment and Plan (1) Pneumonia Current visit: Yes Status: Suspected 71-year-old male with history of non-small cell lung cancer stage III presents to ER with chief complaint of lightheadedness. Patient found to be tachycardic, febrile Reports worsening nonproductive cough, shortness of breath Reports sick contacts: Grandchildren Recently completed chemotherapy on June 08 Test x-ray shows no acute abnormalities but shows traumatic reduction in tumor burden in right upper lobe Clinically patient shows signs of pneumonia: Unclear if viral, bacterial, Plan: Vancomycin, cefepime, Levaquin Blood cultures CBC, BMP Urine streptococcus and legionella antigen [facility] Qualifiers: Pneumonia type: due to unspecified organism Laterality: unspecified laterality Lung location: unspecified part of lung Qualified Code(s): J18.9 - Pneumonia, unspecified organism (2) Pulmonary embolism Current visit: Yes Status: Suspected Wells criteria for: Tachycardia, cancer, immobility for the past 3 days Patient states is due to his dizziness, feeling very cold he has been in bed all day for the past 2-3 days. Patient moderate risk [facility] for PE. Currently he presents today. Plan: We will start heparin drip. bolus patients with IV fluids Recheck renal function the morning if improved will obtain a CTA. Closely monitor H&H. Qualifiers: Pulmonary embolism type: other Chronicity: acute Acute cor pulmonale presence: without acute cor pulmonale Qualified Code(s): I26.99 - Other pulmonary embolism without acute cor pulmonale (3) Non-small cell cancer of right lung Current visit: Yes Status: Acute Patient diagnosed with non-small cell lung cancer in March Stage III Underwent staging which has metastasis to carinal lymph node. Brain MRI within normal limits without any metastasis Abdominal/pelvis CT negative for metastasis. Completed chemotherapy and radiation on 06/08 Was on carboplatin and taxol cxr shows dramatic improvement of her tumor burden since chemotherapy was started. Plan: Consult oncology (4) Dizziness, nonspecific Current visit: Yes Status: Acute Patient states he has had dizziness since mid cycle of chemotherapy treatment. His symptoms are described as lightheadedness, unsteadiness. States he was initially on lisinopril hydrochlorothiazide which was discontinued and improved his symptoms. Symptoms completely did not resolve. He also underwent MRI of brain which is negative for metastasis. Patient's dizziness gets worse with coughing 2nd to dehydration, orthostatsis Plan: Orthostatic vitals Hydrate patient IV fluids. Bedrest. (5) Hypertension Current visit: Yes Status: Chronic Patient has history of hypertension. Patient is to be on lisinopril hydrochlorothiazide however this was discontinued after he started having dizzy spells. Plan: Currently we will hold patient's metoprolol and lisinopril Continue to monitor blood pressure. Qualifiers: Hypertension type: essential hypertension Qualified Code(s): I10 - Essential (primary) hypertension (6) DVT prophylaxis Current visit: Yes Status: Acute Patient on heparin GTT for possible PE. (7) CKD (chronic kidney disease), stage III Current visit: Yes Status: Chronic Patient history of chronic kidney disease Baseline serum creatinine is 1.1. Patient presents with some cramping 1.5. Etiology: Dehydration, possible sepsis from pneumonia Plan: IV fluids Avoid nephrotoxins (8) Anemia Current visit: Yes Status: Chronic Patient presents with hemoglobin 8.4. Baseline is around 9. Patient denies any hematemesis hemoptysis hematochezia or melena hematuria Likely anemia of chronic disease. Plan: We will monitor aggressively as currently we are suspecting PE and the patient was started on heparin drip. We will have 2 units of. She ordered on hold in case patient needs transfusion. PPI, continue home sucralfate. Qualifiers: Anemia type: other cause Other causes of anemia: chronic disease, neoplastic Qualified Code(s): D63.0 - Anemia in neoplastic disease Internal Medicine - H&P: HPI Chief complaint: lightheadedness Admitted From: Home Plans for Post Hospital Care: Home History of present illness: Mr. Aguilar is a 71 year old male presents with chief complaint of lightheadedness. Lightheadedness is described as unsteadiness, dizziness. He gets worse with coughing. Patient has history of non-small cell lung cancer and just completed chemotherapy on June 08 of this year with dramatic improvement of his tumor size. Mid cycles of chemotherapy patient started experiencing lightheadedness. At that time he also had an episode of presyncope. At that time he was on lisinopril hydrochlorothiazide which was discontinued and his lightheadedness improved however it did not completely resolve. Over the past couple days this has become worse. Denies passing out, fall, trauma. Reports decreased oral intake in the past 2 days, increased nonproductive cough, difficulty breathing and fever, chills. Reports he is around grandchildren all the time. He has been in bed for the last couple days due to feeling very cold and requiring multiple blankets for comfort. Patient has also noticed decreased urine output. States during chemotherapy he had increased his water intake now that he completed chemotherapy he decreased fluid intake. Thereafter he noticed his urine output to be very diminished, denies dysuria, urgency, frequency. He tried to increase his water intake again however this has not increased his urine output. He has a history of prostate cancer with prostatectomy in 2000. Past Med Surg Social Fam HX - Past Medical History Medical history: cancer (Non-small cell lung cancer right lung), coronary artery disease, hypertension, peripheral artery disease Psychiatric history: no psych history - Past Surgical History Surgical History: other (Prostatectomy, hernia repair, left carotid endarterectomy 2016, stent and left leg) - Social History Smoking Status: Former smoker Smokeless Tobacco Status: No Alcohol use: occasionally Drug use: none - Family History Father Living Status: Hx Family Cardiac Disorders: Yes (Heart attack, ) Mother Living Status: Hx Family Cardiac Disorders: Yes (HTN) Hx Family Cancer: Yes Internal Medicine - H&P: Meds Aspirin Enteric Coated [Aspirin EC] 81 mg PO DAILY 03/09/16 [History] Omeprazole [PriLOSEC] 20 mg PO DAILY PRN 04/08/17 [History] Oxycodone HCl/Acetaminophen [Percocet 7.5-325 mg Tablet] 1 tab PO Q6H PRN [History] Atorvastatin [Lipitor] 40 mg PO HS #30 tablet 04/10/17 [Rx] Isosorbide MONOnitrate (24 HR) [Imdur] 120 mg PO DAILY #30 tab.er.24h 04/10/17 [ Rx] Metoprolol [Lopressor] 25 mg PO BID #60 tablet 04/10/17 [Rx] Nitroglycerin [Nitrostat] 0.4 mg SL AD PRN 04/18/17 [History] Ondansetron HCl [Zofran] 4 mg PO Q6H PRN #40 tablet 04/18/17 [Rx] Prochlorperazine Maleate [Compazine] 10 mg PO Q6HR PRN #40 tablet 04/18/17 [Rx] Ferrous Sulfate [Iron] 325 mg PO DAILY #30 tablet 05/10/17 [Rx] Lisinopril [Zestril] 10 mg PO DAILY #30 tablet 05/10/17 [Rx] Sucralfate [Carafate] 1 gm PO QID #120 tablet 05/22/17 [Rx] Docusate [Colace] 100 mg PO BID #60 capsule 05/29/17 [Rx] Ascorbic Acid [Vitamin C] 250 mg PO DAILY #90 tablet 06/07/17 [Rx] Folic Acid 1 mg PO DAILY #90 tablet 06/07/17 [Rx] Stomatitis Mixture 5 ml PO Q4H PRN 06/21/17 [History] 3 Allergy/AdvReac Type Severity Reaction Status Date / Time Penicillins Allergy Intermediate Rash Verified 05/31/17 09:17 All Systems PM: A 10-system review of systems was performed and is negative for pertinent findings except as documented above in the HPI. Review of systems: Constitutional: Fevers, chills, weakness HEENT: Denies headache, vision changes, neck pain, sore throat, rhinorrhea Heart: Denies chest pain palpitations Lungs: Shortness of breath, nonproductive cough Abdomen: Denies abdominal pain nausea vomiting diarrhea, hematochezia, melena, hematemesis Back: Denies back pain Skin: Denies open wounds or sores, rash Kidney: Denies dysuria, hematuria Extremities: Denies swelling, pain Neuro: Denies numbness, and tingling - Constitutional Vitals: Temp Pulse Resp BP Pulse Ox 99.4 F 103 15 125/76 96 06/21/17 21:01 06/21/17 21:01 06/21/17 21:01 06/21/17 21:01 06/21/17 21:01 - Other Additional findings: General: Alert and oriented to place time and situation. Without distress HEENT: Head atraumatic, normocephalic, EOMI, PERRLA, neck nontender to palpation , absent Lymphadenopathy, Moist Mucous Membranes, Heart: Sinus tachycardia without murmur Lungs: Diminished breath sounds with wheezing and coughing with deep inspiration Abdomen: Soft nontender, nondistended positive bowel sounds Extremities: Absent pedal edema, Skin: Warm and dry Neuro: Cranial nerves II through XII intact, sensation equal bilaterally, strength upper and lower extremity 5/5, alert oriented 3 Vascular: Pedal and radial pulses 2 out of 4 Internal Med - H&P Results - Labs CBC & Chem 7: 06/21/17 18:06 06/21/17 18:06 Labs: Urine 06/21/17 Range/Units 20:12 Urine Color Yellow (Yellow) Urine Clarity Cloudy A (Clear) Urine pH 5.5 (5.0-8.0) pH Units Ur Specific [place] 1.023 (1.010-1.025) Urine Protein 100 H (Neg-Trace) mg/dL Urine Glucose (UA) Normal (Normal) mg/dL <Julian Encinas - Last Filed: 06/21/17 23:37> Date of Encounter: 06/21/17 Time of Encounter: 22:05 Past Med Surg Social Fam HX - Past Medical History Attestation: Yes The following information was validated with the patient. Source: patient, old records reviewed - Constitutional Constitutional: chills, fever(s), weakness, no night sweats - EENT Eyes: no blurry vision, no change in vision Ears: no ear pain, no tinnitus Nose, mouth and throat: no nasal congestion, no nasal discharge, no sinus pressure, no sore throat - Cardiovascular Cardiovascular ROS IM: dyspnea, dyspnea on exertion, lightheadedness, palpitations, no chest pain, no syncope - Respiratory Respiratory: cough, dyspnea, dyspnea on exertion, wheezing, pain on inspiration , pain with cough, no hemoptysis, no chest congestion, no excessive phlegm production, no change in phlegm color - Gastrointestinal Gastrointestinal: no abdominal pain, no diarrhea, no hematemesis, no hematochezia, no melena, no nausea, no vomiting - Genitourinary Genitourinary ROS male: no dysuria, no flank pain, no hematuria - Musculoskeletal Musculoskeletal ROS IM: no arthralgias, no back pain - Integumentary Integumentary IM: no rash, no jaundice - Neurological Neurological ROS: dizziness, no focal weakness, no frequent falls, no headache(s ) - Psychiatric Psychiatric: no anxiety, no depression - Endocrine Endocrine IM: no polydipsia, no polyuria - Hematologic/Lymphatic Hematologic/Lymphatic: no lymphadenopathy - Allergic/Immunologic Allergic/Immunologic: no GI upset with certain foods - Constitutional Vitals: Temp Pulse Resp BP Pulse Ox 99.4 F 103 15 125/76 96 06/21/17 21:01 06/21/17 21:01 06/21/17 21:01 06/21/17 21:01 06/21/17 21:01 General appearance: Present: cooperative, mild distress, A&O X 3, pleasant, answers questions appropriately - Head Head exam: Present: atraumatic, normal inspection - Eye Eye exam: Present: PERRL. Absent: scleral icterus Pupils: Present: normal accommodation - Neck Neck exam general surgery: Present: full ROM, supple. Absent: tenderness - Expanded Neck Exam Neck exam: Absent: carotid bruit - Respiratory Respiratory exam: Present: accessory muscle use (mild), prolonged expiratory phase, respiratory distress (mild), wheezes, tachypnea. Absent: chest wall tenderness, rales, rhonchi - Cardiovascular Cardiovascular exam: Present: RRR, +S1, +S2, tachycardia. Absent: distant heart sounds, JVD, systolic murmur - GI/Abdominal GI/Abdominal exam: Present: normal bowel sounds, soft. Absent: hepatomegaly, mass, splenomegaly, tenderness - Extremities Exam Extremities exam: Present: full ROM, warm, radial pulses palpable and symmetrical. Absent: calf tenderness, joint swelling, pedal edema - Back Exam Back exam: Present: normal inspection. Absent: CVA tenderness (L), CVA tenderness (R) - Neurological Exam Neurological exam: Present: alert, CN II-XII intact, oriented X3, no focal deficits - Psychiatric Psychiatric exam: Present: normal affect, normal mood - Skin Skin exam: Present: dry, warm. Absent: rash Internal Med - H&P Results - Labs CBC & Chem 7: 06/21/17 18:06 06/21/17 18:06 - EKG Data -: EKG Interpreted by Myself EKG shows normal: sinus rhythm Rate: tachycardia - EKG Data EKG comments: 06/21/17 23:29 Sinus tachycardia with LANDON - Diagnostic Studies Chest x-ray Status: image reviewed by me (negative; significant improvement in lung mass comaped to [facility] x-ray) - Attending Attestation I discussed the patient HO-CHUNK, PMH, ROS, lab data, and exam findings with Dr. Clark. I then saw and examined patient independently as well. Patient, , and son confirm the symptoms noted in HO-CHUNK. In particular, he has had increased SOB with some pleuritic component. I viewed his xray and note clear lungs. Clinically, I suspect pneumonia as noted by Dr. Clark. We will treat for that despite negative CXR. However, given his resting tachycardia, SOB, pleuritic CP, and lung cancer, my clinical index of suspicion for PE is rather high. He has no history of any blood loss, and I suspect his anemia is of chronic disease and CKD. Specifically, he denies GI blood loss and/or hemoptysis. We will hydrate him with IVF, anticoagulate with heparin gtt empirically, and plan for CTA of chest tomorrow if renal function normalizes. If unable to do so, we will proceed with V/Q and LE Dopplers. I explained all the above to patient, , and son, and they all voiced understanding. Other than my comments above and noted exam findings, I agree with Dr. Clark's assessment and plan.
[2017-06-21] MEDS ORDERED: *HR* Heparin 5,000 UNIT/ML VIAL IVP ONE (21:46)
[2017-06-21] MEDS ORDERED: Ipratropium/Albuterol Neb 3 ML IH PRN (21:46)
[2017-06-21] MEDS ORDERED: *HR* Heparin 5,000 UNIT/ML VIAL IVP PRN ×2 (21:46)
[2017-06-21] MEDS ORDERED: Heparin 25,000 UNIT/500 ML D5W 25,000 UNIT/500 ML MLS IVC SCH (22:00)
[2017-06-21 22:05] LABS: Magnesium 1.3 mg/dL (1.6-2.6); Phosphorous 2.7 mg/dL (2.3-4.7)
[2017-06-21 22:13] LABS: INR 1.1
[2017-06-21 22:16] LABS: Activated Partial Thrombo Time 31.2 Seconds (26.0-36.0)
[2017-06-21] MEDS: Pantoprazole 40 MG VIAL IVP SCH (23:14)
[2017-06-22 01:16] LABS: Basophils % 0.6 %; Eosinophils # 0.1 K/mcL (0.0-0.6); Hematocrit 20.8 % (37.5-50.1); Immature Granulocytes % 0.6 % (0-4); Immature Platelets 2.7 % (1.1-6.1); Lymphocytes # 0.4 K/mcL (0.6-4.6); Lymphocytes % 11.6 %; Mean Corpuscular HGB Conc 33.7 g/dL (31.6-35.5); Mean Corpuscular Hemoglobin 30.4 pg (28.0-33.3); Mean Corpuscular Volume 90.4 fL (83.0-100.0); Mean Platelet Volume 9.7 fL (9.4-12.4); Monocytes # 0.9 K/mcL (0.0-1.3); Monocytes % 26.2 %; Platelet Count 114 K/mcL (140-400); Red Cell Distribution Width 18.9 % (11.5-14.5)
[2017-06-22 01:56] LABS: Anisocytosis 1+ (Not Present); Platelet Estimate Slight Decrease (Normal); Reactive Lymphocytes Present (Not Present)
[2017-06-22 01:57] LABS: Macrocytosis Present (Not Present); Microcytosis Present (Not Present)
[2017-06-22 03:03] LABS: BUN/Creatinine Ratio 20 (6-26); Blood Urea Nitrogen 26 mg/dL (8-26); Calcium 8.1 mg/dL (8.6-10.8); Carbon Dioxide 19 mEq/L (19-29); Chloride 101 mEq/L (98-109); Glucose 125 mg/dL (70-99); Osmolality,Calculated 274 (280-300); Potassium 3.6 mEq/L (3.5-4.5); Sodium 129 mEq/L (136-145); eGFR For African Americans > 60 (> 60); eGFR For Non-African Americans 56 (> 60)
[2017-06-22] MEDS ORDERED: 0.9 % Sodium Chloride 1,000 ML IVC ONE (03:14)
[2017-06-22] MEDS ORDERED: Magnesium Sulfate 1 GM in D5% in Water 100 ML IVPB ONE (03:33)
[2017-06-22 05:33] LABS: BUN/Creatinine Ratio 21 (6-26); Blood Urea Nitrogen 23 mg/dL (8-26); Calcium 8.2 mg/dL (8.6-10.8); Carbon Dioxide 18 mEq/L (19-29); Chloride 104 mEq/L (98-109); Glucose 103 mg/dL (70-99); Osmolality,Calculated 278 (280-300); Potassium 4.2 mEq/L (3.5-4.5); Sodium 132 mEq/L (136-145); eGFR For African Americans > 60 (> 60); eGFR For Non-African Americans > 60 (> 60)
[2017-06-22] MEDS ORDERED: 0.9 % Sodium Chloride 250 ML ONE (05:45)
[2017-06-22] MEDS ORDERED: *HR* Heparin 5,000 UNIT/ML VIAL SQ SCH (06:00)
--- NOTE | 2017-06-22 06:45 | Event Note ---
Date of Encounter: 06/22/17 Time of Encounter: 06:41 Patient initially started on heparin drip for suspected pE with wells criteria of 4. CTA was not completed as patients Scr was elevated. He was given IVF and plan was to recheck BMP in morning and if improved obtain CTA. Initial hgb was 8.4 on admission. Two unit PBRC were ordered and put on hold. We were closely monitoring h/h and Hgb at 1AM was 7.0. Heparin drip was stopped, and stat CMP showed improvement in renal function. He was given additional 1l of iVF and sent for stat CTA which was negative for PE. Heparin drip was discontinued. Patient is currently being transfused as on now. CBC pending.
[2017-06-22] MEDS: Cefepime HCl 1,000 MG in D5% in Water (Mini-Bag+) 100 ML IVPB SCH ×2 (08:09→22:43)
[2017-06-22] MEDS: Folic Acid 1 MG TABLET PO SCH (08:10)
[2017-06-22] MEDS: Sucralfate 1 GM TABLET PO SCH ×4 (08:10→22:43)
[2017-06-22] MEDS: Aspirin Enteric Coated 81 MG Tablet PO SCH (08:10)
[2017-06-22] MEDS: Isosorbide MONOnitrate (24 HR) 60 MG TAB.ER.24H PO SCH (08:10)
[2017-06-22] MEDS: Pantoprazole 40 MG VIAL IVP SCH (08:11)
--- NOTE | 2017-06-22 08:51 | Oncology Inp Consult Note ---
Date of Encounter: 06/22/17 Time of Encounter: 08:56 Assessment and Plan (1) Non-small cell cancer of right lung Status: Acute Assessment and plan: Mr. Aguilar was started on chemoradiation with carbo/taxol on April and received a total of 5 treatments, not 6 due to that he experienced LINETTE during week 3. week 6 was administered on 06/07/17. He has experienced chemo associated myelosupresion, mainly characterized for anemia ( his ANC is 2.0 and his platelets >100K). He has also experienced fatigue related to recent chemotherapy. - At this time his treatment I would recommend to continue daily CBC diff and BMP. Transfuse for Hb less than 7 g/dl or Platelet count less than 20K. - His scans revealed findings consistent with treatment response to chemotherapy. - Pain is well controlled. Continue current management with percocet PRN - Upon discharge please arrange for follow up with his primary oncologist Dr. Castro. (2) Pneumonia Status: Suspected Assessment and plan: Clinically seems to be improving with management with IVF and broad spectrum antibiotics. I appreciate excellent management of primary team. Qualifiers: Pneumonia type: due to unspecified organism Laterality: unspecified laterality Lung location: unspecified part of lung Qualified Code(s): J18.9 - Pneumonia, unspecified organism (3) DVT prophylaxis Status: Acute Assessment and plan: CT angio showed not evidence of PE, however he is at high risk for VTE and require thromboprophylaxis. I would suggest lovenox 40 mg SQ daily or If his renal function worsen, I'd switch to heparin 5000 units every 8 hours. - - Data of Consult Requesting Physician: Christos Patel Primary Care Provider: Vinny Campbell MD - Consult Narrative Reason for consult: Management of stage III NSCLC s/p recent chemoradiation History of present illness: Chief complaint: lightheadedness Mr. Aguilar is a 71 year old male with past medical history of HTN, stage III CKD, PAD, NSTEMI, left carotid stenosis, and stage III non small cell lung carcinoma ( right lung mass) presenting to the hospital due to lightheadedness. Regarding his recently diagnosed cancer, he completed chemoradiation on June 08, 2017. he was started on carbo/taxol on 04/26/17, week 6 corresponding to . He only received 5 doses ( no 6) due to LINETTE during week 3. . His pathology was consistent with poorly differentiated non small cell carcinoma, they could not differentiate between adenocarcinoma versus squamous cell carcinoma. CK7 was positive, TTF1 negative. His work up included a brain MRI negative for intracranial lesions. His past medical history includes left carotid endarterctomy on 03/09/16 . He was hospitalized in 2017 for elevated troponins, found to present a NSTEMI with cath revealing multivessel disease, but not a surgical candidate as per Dr. Rosario. Plavix were adjusted with plavix changed to ticagrelor 80 mg BID. At the time of the visit he reports that his lightheadedness already resolved ( he was initially hypotensive, but his hypotension has resolved too), apparently with management with IVF, and broad spectrum antibiotics due to presumptive PNA ( his CXR was negative, but the recent administration of chemo radiation could prevent his immune system to develop an inflammatory response). He was started on broad spectrum antibiotics. Clinical findings concerning for PNA including the presence of cough, fever ( prior to admission), sick contacts, chills and difficulty breathing. There was also the concern about PE in view of his recent decrease mobility, pleuritic chest pain, cancer and lightheadedness. He was started empirically on heparin drip, but was already discontinued after CT angio revealed not evidence of PE. His CT showed findings suggestive of PNA, along with response to recent chemotherapy with significant decrease of his tumor and associated lymphadenopathies. He was seen with his at the bedside. He was noticed to present anemia, but there is not evidence of bleeding. He is being transfused at the time of the visit. His other cell counts have a moderate decrease, but his ANC remains at 2 and his platelets remain above 100K. He had mild LINETTE, but has improved significantly with the administration of IVF. He reports abnormal taste since chemoradiation was started, and tolerated breakfast, although reports that his appetite is not great. Past Med Surg Social Fam HX - Past Medical History Medical history: cancer, coronary artery disease, hypertension, peripheral artery disease Psychiatric history: no psych history - Past Surgical History Surgical History: other (Prostatectomy, hernia repair, left carotid endarterectomy 2016, stent and left leg) - Social History Smoking Status: Former smoker Smokeless Tobacco Status: No Alcohol use: occasionally Drug use: none - Family History Father Living Status: Hx Family Cardiac Disorders: Yes (Heart attack, ) Mother Living Status: Hx Family Cardiac Disorders: Yes (HTN) Hx Family Cancer: Yes Medications and Allergies Aspirin Enteric Coated [Aspirin EC] 81 mg PO DAILY 03/09/16 [History] Omeprazole [PriLOSEC] 20 mg PO DAILY PRN 04/08/17 [History] Oxycodone HCl/Acetaminophen [Percocet 7.5-325 mg Tablet] 1 tab PO Q6H PRN [History] Atorvastatin [Lipitor] 40 mg PO HS #30 tablet 04/10/17 [Rx] Isosorbide MONOnitrate (24 HR) [Imdur] 120 mg PO DAILY #30 tab.er.24h 04/10/17 [ Rx] Metoprolol [Lopressor] 25 mg PO BID #60 tablet 04/10/17 [Rx] Nitroglycerin [Nitrostat] 0.4 mg SL AD PRN 04/18/17 [History] Ondansetron HCl [Zofran] 4 mg PO Q6H PRN #40 tablet 04/18/17 [Rx] Prochlorperazine Maleate [Compazine] 10 mg PO Q6HR PRN #40 tablet 04/18/17 [Rx] Ferrous Sulfate [Iron] 325 mg PO DAILY #30 tablet 05/10/17 [Rx] Lisinopril [Zestril] 10 mg PO DAILY #30 tablet 05/10/17 [Rx] Sucralfate [Carafate] 1 gm PO QID #120 tablet 05/22/17 [Rx] Docusate [Colace] 100 mg PO BID #60 capsule 05/29/17 [Rx] Ascorbic Acid [Vitamin C] 250 mg PO DAILY #90 tablet 06/07/17 [Rx] Folic Acid 1 mg PO DAILY #90 tablet 06/07/17 [Rx] Stomatitis Mixture 5 ml PO Q4H PRN 06/21/17 [History] 3 Allergy/AdvReac Type Severity Reaction Status Date / Time Penicillins Allergy Intermediate Rash Verified 05/31/17 09:17 Constitutional: Present: fatigue, fever(s), malaise Eyes: Absent: diplopia Nose, mouth and throat: Present: dizziness Cardiovascular: Present: syncope. Absent: chest pain with activity, edema, irregular heart rhythm, leg edema, rapid heart rate Respiratory: Present: cough, dyspnea. Absent: hemoptysis Gastrointestinal: Absent: nausea, odynophagia Genitourinary: as per HPI, urinary frequency Musculoskeletal: Absent: myalgias Neurological: Absent: abnormal gait, focal weakness, lack of coordination Psychiatric: Absent: behavioral changes, confusion Endocrine: Present: as per HPI Hematologic/Lymphatic: Absent: easy bleeding, easy bruising Oncology - Exam - Constitutional Vitals: Temp Pulse Resp BP Pulse Ox 98.3 F 95 18 128/72 95 06/22/17 06:07 06/22/17 06:07 06/22/17 06:07 06/22/17 06:07 06/22/17 08:30 - Head Head exam: Present: normal inspection, normocephalic - Eye Eye exam: Present: EOMI, normal appearance - ENT ENT exam: Present: normal exam, normal oropharynx - Neck Neck exam: Present: normal inspection. Absent: lymphadenopathy, tenderness - Respiratory Respiratory exam: Absent: chest wall tenderness, decreased breath sounds, rales , respiratory distress (good bilateral air entry.) - Cardiovascular Cardiovascular exam: Present: RRR. Absent: diastolic murmur, JVD - GI/Abdominal GI/Abdominal exam: Present: normal bowel sounds, soft. Absent: organomegaly, rebound, tenderness - Extremities Exam Extremities exam: Absent: normal inspection, pedal edema, tenderness - Neurological Exam Neurological exam: Present: oriented X3. Absent: CN II-XII intact - Psychiatric Psychiatric exam: Present: normal affect. Absent: anxious, depressed - Skin Skin exam: Present: normal color. Absent: cyanosis, erythema Oncology - Results Labs: Short CBC 06/22/17 Range/Units 01:04 WBC 3.4 L (4.3-11.1) K/mcL Hgb 7.0 L (12.9-16.9) g/dL Hct 20.8 L (37.5-50.1) % Plt Count 114 L (140-400) K/mcL Neutrophils # 2.0 (1.6-8.9) K/mcL BMP 06/22/17 06/22/17 01:04 04:33 Sodium 129 L 132 L Potassium 3.6 4.2 Chloride 101 104 Carbon Dioxide 19 18 L BUN 26 23 Creatinine 1.27 H 1.09 Glucose 125 H 103 H Calcium 8.1 L 8.2 L Consult Discharge Plan - Plan Referrals: Vinny Campbell MD [Primary Care Provider] -
[2017-06-22 09:59] LABS: Basophils % 0.6 %; Eosinophils % 0.6 %; Hematocrit 25.2 % (37.5-50.1); Immature Granulocytes % 0.4 % (0-4); Immature Platelets 2.3 % (1.1-6.1); Lymphocytes # 0.3 K/mcL (0.6-4.6); Lymphocytes % 6.6 %; Mean Corpuscular HGB Conc 34.9 g/dL (31.6-35.5); Mean Corpuscular Hemoglobin 31.7 pg (28.0-33.3); Mean Corpuscular Volume 90.6 fL (83.0-100.0); Mean Platelet Volume 9.8 fL (9.4-12.4); Monocytes # 0.8 K/mcL (0.0-1.3); Monocytes % 17.3 %; Neutrophils # 3.6 K/mcL (1.6-8.9); Platelet Count 120 K/mcL (140-400); Red Blood Count 2.78 M/mcL (4.19-5.50); Red Cell Distribution Width 18.1 % (11.5-14.5); Segmented Neutrophils % 74.5 %
[2017-06-22 10:01] LABS: Hemoglobin 8.8 g/dL (12.9-16.9)
[2017-06-22] MEDS ORDERED: 0.9 % Sodium Chloride 1,000 ML ONE (12:33)
[2017-06-22] MEDS: Furosemide 40 MG/4 ML VIAL IVP SCH ×2 (12:37→22:46)
--- NOTE | 2017-06-22 13:39 | Internal Med Progress Note ---
<Lavell Torres - Last Filed: 06/22/17 13:40> Date of Encounter: 06/22/17 Time of Encounter: 09:15 - Assessment and plan (1) Pneumonia Current Visit: Yes Status: Suspected Assessment and plan: CTA showed "Interval development of parenchymal disease, portion which demonstrates nodular characteristics within the right upper lobe. Finding is suspicious for representing infiltrate/pneumonia." Pt with Tachycardia, Fever Vanc stopped Continue Cefepime, levaquin Legionella and Strep Pneumonia antigens negative. Ucx Negative Qualifiers: Pneumonia type: due to unspecified organism Laterality: unspecified laterality Lung location: unspecified part of lung Qualified Code(s): J18.9 - Pneumonia, unspecified organism (2) Non-small cell cancer of right lung Current Visit: Yes Status: Acute Assessment and plan: Oncology on board. Patient finished Chemoradiation on 06/09 Has seen reduction in tumor burden as seen on CXR, and CTA. continue current pain recs f/u with Dr. Castro upon d/c follow onc's recs. (3) Anemia Current Visit: Yes Status: Chronic Assessment and plan: likely anemia of chronic disease 2/2 to CA. Baseline is around 9. was 8.4 on admission. Dropped to 7 today. Transfussing 2 units. continue home sucralfate continue PPI per onc's recs transfuse for hgb less than 7, and platlettes less than 20k. Qualifiers: Anemia type: other cause Other causes of anemia: chronic disease, neoplastic Qualified Code(s): D63.0 - Anemia in neoplastic disease (4) Dizziness, nonspecific Current Visit: Yes Status: Acute Assessment and plan: Patient lightheaded. likely 2/2 to chemo effects, plus anemia, plus dehydration. Has been an issue since mid cycle of chemotherapy MRI brain negative for mets. dizziness worse with coughing rule out orthostasis. continue IV fluids (5) Hypertension Current Visit: Yes Status: Chronic Assessment and plan: BPs have been well controlled. Continue to hold meds continue to monitor. Qualifiers: Hypertension type: essential hypertension Qualified Code(s): I10 - Essential (primary) hypertension (6) CKD (chronic kidney disease), stage III Current Visit: Yes Status: Chronic Assessment and plan: baseline Cr 1.1 Was 1.5 on admission has improved with fluids to 1.09 continue to monitor. avoid nephrotoxins (7) Pulmonary embolism Current Visit: Yes Status: Suspected Assessment and plan: Ruled out by CTA. Heparin drip was stopped. Qualifiers: Pulmonary embolism type: other Chronicity: acute Acute cor pulmonale presence: without acute cor pulmonale Qualified Code(s): I26.99 - Other pulmonary embolism without acute cor pulmonale - Subjective Interval history: Patient reports feeling better. He states his breathing and lightheadness are improved. He still had some chills. He reports a chronic dry cough. He denies blood in stool or urine. He denies coughing up blood. Patient received 1 unit of blood so far today with second one currently running due to hgb of 7. - Constitutional Vitals: Temp Pulse Resp BP Pulse Ox 100.9 F H 121 20 141/81 97 06/22/17 12:47 06/22/17 12:47 06/22/17 12:47 06/22/17 12:47 06/22/17 12:47 General appearance: Present: cooperative, A&O X 3, pleasant, answers questions appropriately - Eye Eye exam: Present: PERRL - ENT ENT exam: Present: mucous membranes moist - Respiratory Respiratory exam: Present: decreased breath sounds, CTAB. Absent: rales, rhonchi, wheezes - Cardiovascular Cardiovascular exam: Present: +S1, +S2, tachycardia. Absent: diastolic murmur, gallop, rubs - GI/Abdominal GI/Abdominal exam: Present: normal bowel sounds, soft. Absent: tenderness - Extremities Exam Extremities exam: Absent: pedal edema - Neurological Exam Neurological exam: Present: alert, oriented X3. Absent: speech deficit - Psychiatric Psychiatric exam: Present: normal affect, normal mood - Skin Skin exam: Present: dry, warm Internal Medicine: Result - Labs CBC & Chem 7: 06/22/17 09:37 06/22/17 04:33 Labs: Short CBC 06/22/17 06/22/17 Range/Units 01:04 09:37 WBC 3.4 L 4.9 (4.3-11.1) K/mcL Hgb 7.0 L 8.8 L D (12.9-16.9) g/dL Hct 20.8 L 25.2 L (37.5-50.1) % Plt Count 114 L 120 L (140-400) K/mcL Neutrophils # 2.0 3.6 (1.6-8.9) K/mcL BMP 06/22/17 06/22/17 01:04 04:33 Sodium 129 L 132 L Potassium 3.6 4.2 Chloride 101 104 Carbon Dioxide 19 18 L BUN 26 23 Creatinine 1.27 H 1.09 Glucose 125 H 103 H Calcium 8.1 L 8.2 L - ABG Interpretation ABG results: PT/INR, D-dimer PT 12.0 Seconds (9.4-12.1) 06/21/17 18:06 - Impressions Impressions Chest CTA 06/22/17 03:15 IMPRESSION: 1. No radiographic findings to suggest presence of pulmonary thromboembolism. 2. Interval decrease in size of mediastinal lymphadenopathy particularly in the right peritracheal region. 3. Interval decrease in size with new cavitation involving neoplastic mass within the right upper lobe. 4. Interval development of parenchymal disease, portion which demonstrates nodular characteristics within the right upper lobe. Finding is suspicious for representing infiltrate/pneumonia. Short-term follow-up examination would be helpful for re-evaluation. 5. Tiny right pleural effusion. D/ / 06/22/2017 07:08:33 Santosh Velez MD / [email or web address] Interpreting Provider: Santosh Velez MD - VTE Reasons for not Prescribing Prophylaxis: Not indicated-Anticoagulated or INR therapeutic Consult Discharge Plan - Plan Referrals: Vinny Campbell MD [Primary Care Provider] - <Christos Patel H - Last Filed: 06/22/17 14:44> Date of Encounter: 06/22/17 - Constitutional Vitals: Temp Pulse Resp BP Pulse Ox 99.5 F 122 20 138/81 96 06/22/17 13:56 06/22/17 13:56 06/22/17 13:56 06/22/17 13:56 06/22/17 13:56 Internal Medicine: Result - Labs CBC & Chem 7: 06/22/17 09:37 06/22/17 04:33 Labs: Short CBC 06/22/17 06/22/17 Range/Units 01:04 09:37 WBC 3.4 L 4.9 (4.3-11.1) K/mcL Hgb 7.0 L 8.8 L D (12.9-16.9) g/dL Hct 20.8 L 25.2 L (37.5-50.1) % Plt Count 114 L 120 L (140-400) K/mcL Neutrophils # 2.0 3.6 (1.6-8.9) K/mcL BMP 06/22/17 06/22/17 01:04 04:33 Sodium 129 L 132 L Potassium 3.6 4.2 Chloride 101 104 Carbon Dioxide 19 18 L BUN 26 23 Creatinine 1.27 H 1.09 Glucose 125 H 103 H Calcium 8.1 L 8.2 L - ABG Interpretation ABG results: PT/INR, D-dimer PT 12.0 Seconds (9.4-12.1) 06/21/17 18:06 - Impressions Impressions Chest CTA 06/22/17 03:15 IMPRESSION: 1. No radiographic findings to suggest presence of pulmonary thromboembolism. 2. Interval decrease in size of mediastinal lymphadenopathy particularly in the right peritracheal region. 3. Interval decrease in size with new cavitation involving neoplastic mass within the right upper lobe. 4. Interval development of parenchymal disease, portion which demonstrates nodular characteristics within the right upper lobe. Finding is suspicious for representing infiltrate/pneumonia. Short-term follow-up examination would be helpful for re-evaluation. 5. Tiny right pleural effusion. D/ / 06/22/2017 07:08:33 Santosh Velez MD / [email or web address] Interpreting Provider: Santosh Velez MD - Attending Attestation Sepsis secondary to healthcare associated pneumonia/possible gram-negative pneumonia present upon admission Continue Levaquin and cefepime Send blood cultures Acute on chronic renal failure secondary to sepsis I examined this patient and my medical decision-making was reviewed with the Resident Physician. I agree with the documented findings, disposition and treatment plan as described except to the extent set forth below.
[2017-06-22] MEDS ORDERED: Acetaminophen 325 MG TABLET PO PRN (13:54)
[2017-06-22] MEDS ORDERED: Furosemide 20 MG/2 ML VIAL IVP ONE (16:05)
[2017-06-22] MEDS: Magnesium Oxide 400 MG TABLET PO SCH (16:20)
[2017-06-22 16:54] LABS: Hematocrit 27.8 % (37.5-50.1); Hemoglobin 9.9 g/dL (12.9-16.9)
--- NOTE | 2017-06-22 17:08 | Electrocardiograph Report ---
[place] [id number] Test Date: 2017-06-21 Pat Name: Vinod Aguilar Department: 105 Room: 2NE29 Gender: M Script Artist: : [id number] Requested By: Jun Bal Order Number: [id number] Reading MD: Denise Sharma Measurements Intervals [place] Rate: 116 P: 72 CA: 142 QRS: 85 QRSD: 83 T: 72 QT: 305 QTc: 374 Interpretive Statements SINUS TACHYCARDIA POSSIBLE RIGHT ATRIAL AND LEFT ATRIAL ENLARGEMENT POSSIBLE RV CONDUCTION DELAY Electronically Signed On 06-22-2017 17:06:49 EDT by Denise Sharma
[2017-06-22] MEDS ORDERED: Cefepime HCl 2,000 MG in D5% in Water (Mini-Bag+) 100 ML IVPB ONE (19:37)
[2017-06-22] MEDS ORDERED: Vancomycin 1,000 MG in D5% in Water 250 ML IVPB SCH ×2 (21:00→23:00)
[2017-06-23 05:36] LABS: BUN/Creatinine Ratio 15 (6-26); Blood Urea Nitrogen 19 mg/dL (8-26); Calcium 9.1 mg/dL (8.6-10.8); Carbon Dioxide 26 mEq/L (19-29); Chloride 99 mEq/L (98-109); Glucose 108 mg/dL (70-99); Magnesium 1.4 mg/dL (1.6-2.6); Osmolality,Calculated 279 (280-300); Potassium 3.4 mEq/L (3.5-4.5); Sodium 133 mEq/L (136-145); eGFR For African Americans > 60 (> 60); eGFR For Non-African Americans 57 (> 60)
[2017-06-23 05:50] LABS: Hematocrit 30.2 % (37.5-50.1); Hemoglobin 10.2 g/dL (12.9-16.9); Immature Platelets 3.6 % (1.1-6.1); Mean Corpuscular Volume 85.8 fL (83.0-100.0); Mean Platelet Volume 10.4 fL (9.4-12.4); Red Blood Count 3.52 M/mcL (4.19-5.50); Red Cell Distribution Width 17.8 % (11.5-14.5)
[2017-06-23 05:51] LABS: Mean Corpuscular HGB Conc 33.8 g/dL (31.6-35.5)
[2017-06-23] MEDS: Furosemide 40 MG/4 ML VIAL IVP SCH (09:05)
[2017-06-23] MEDS: Cefepime HCl 1,000 MG in D5% in Water (Mini-Bag+) 100 ML IVPB SCH ×2 (09:06→20:47)
[2017-06-23] MEDS: Pantoprazole 40 MG VIAL IVP SCH (09:06)
[2017-06-23] MEDS: Sucralfate 1 GM TABLET PO SCH ×3 (09:07→20:47)
[2017-06-23] MEDS: Magnesium Oxide 400 MG TABLET PO SCH (09:07)
[2017-06-23] MEDS: Folic Acid 1 MG TABLET PO SCH (09:07)
[2017-06-23] MEDS: Isosorbide MONOnitrate (24 HR) 60 MG TAB.ER.24H PO SCH (09:07)
[2017-06-23] MEDS: Aspirin Enteric Coated 81 MG Tablet PO SCH (09:08)
--- NOTE | 2017-06-23 09:08 | Internal Med Progress Note ---
<ChikisLavell kumar - Last Filed: 06/23/17 09:24> Date of Encounter: 06/23/17 Time of Encounter: 09:05 - Assessment and plan (1) Pneumonia Current Visit: Yes Status: Suspected Assessment and plan: Presnt upon admission Pt on chemtherapy so healthcare aquired pneumonia must be considered. CTA showed "Interval development of parenchymal disease, portion which demonstrates nodular characteristics within the right upper lobe. Finding is suspicious for representing infiltrate/pneumonia." Pt still tachycardic. Last fever 06/22 at 16:11 Vanc stopped Continue Cefepime, levaquin Legionella and Strep Pneumonia antigens negative. Ucx Negative Preliminary bcx negative. Qualifiers: Pneumonia type: due to unspecified organism Laterality: unspecified laterality Lung location: unspecified part of lung Qualified Code(s): J18.9 - Pneumonia, unspecified organism (2) Sepsis Current Visit: Yes Status: Acute Assessment and plan: secondary to [facility] acquired pneumonia presnet upon admission. continue abx. continue to monitor. Qualifiers: Sepsis type: sepsis due to unspecified organism Qualified Code(s): A41.9 - Sepsis, unspecified organism (3) Non-small cell cancer of right lung Current Visit: Yes Status: Acute Assessment and plan: -Oncology on board. -Patient finished Chemoradiation on 06/09 -Has seen reduction in tumor burden as seen on CXR, and CTA. -continue current pain recs -f/u with Dr. Castro upon d/c -follow onc's recs. (4) Anemia Current Visit: Yes Status: Chronic Assessment and plan: likely anemia of chronic disease 2/2 to CA. Baseline is around 9. was 8.4 on admission. Dropped to 7 yesterday. Transfussed 2 units PRBC Hgb 10.2 this morning. continue home sucralfate continue PPI per onc's recs transfuse for hgb less than 7, and platlettes less than 20k. Qualifiers: Anemia type: other cause Other causes of anemia: chronic disease, neoplastic Qualified Code(s): D63.0 - Anemia in neoplastic disease (5) Dizziness, nonspecific Current Visit: Yes Status: Acute Assessment and plan: -Improved markedly today -Patient lightheaded. likely 2/2 to chemo effects, plus anemia, plus dehydration. -Has been an issue since mid cycle of chemotherapy -MRI brain negative for mets. -dizziness worse with coughing -rule out orthostasis. -continue IV fluids (6) Hypertension Current Visit: Yes Status: Chronic Assessment and plan: -BPs have been well controlled to low. -Continue to hold meds -continue to monitor. Qualifiers: Hypertension type: essential hypertension Qualified Code(s): I10 - Essential (primary) hypertension (7) Acute on chronic renal failure Current Visit: Yes Status: Acute Assessment and plan: baseline Cr 1.1 Was 1.5 on admission had improved with fluids to 1.09 yesterday up to 1.29 today. continue to monitor. avoid nephrotoxins Qualifiers: Acute renal failure type: unspecified Chronic kidney disease stage: stage 3 (moderate) Qualified Code(s): N17.9 - Acute kidney failure, unspecified; N18.3 - Chronic kidney disease, stage 3 (moderate) (8) Pulmonary embolism Current Visit: Yes Status: Suspected Assessment and plan: Ruled out by CTA. Heparin drip was stopped. Qualifiers: Pulmonary embolism type: other Chronicity: acute Acute cor pulmonale presence: without acute cor pulmonale Qualified Code(s): I26.99 - Other pulmonary embolism without acute cor pulmonale (9) DVT prophylaxis Current Visit: Yes Status: Acute Assessment and plan: Patient at high risk for VTE due to CA Currently on Pneumatic compression devices. Start thromboprphylaxis. - Subjective Interval history: Patient reports feeling better. He states his breathing feels good, his cough has resolved and his lightheadedness is dramatically improved. He is no longer experiencing chills. he has been afebrile for 17 hours. - Constitutional Vitals: Temp Pulse Resp BP Pulse Ox 98.7 F 101 14 152/87 95 06/23/17 07:30 06/23/17 07:30 06/23/17 07:30 06/23/17 07:30 06/23/17 07:30 General appearance: Present: cooperative, A&O X 3, pleasant, answers questions appropriately - Eye Eye exam: Present: PERRL, sclera anicteric - ENT ENT exam: Present: mucous membranes moist - Respiratory Respiratory exam: Present: decreased breath sounds, CTAB. Absent: rales, rhonchi, wheezes - Cardiovascular Cardiovascular exam: Present: +S1, +S2, tachycardia. Absent: gallop, rubs, systolic murmur - GI/Abdominal GI/Abdominal exam: Present: normal bowel sounds, soft. Absent: tenderness - Extremities Exam Extremities exam: Present: warm. Absent: pedal edema, tenderness - Neurological Exam Neurological exam: Present: alert, oriented X3. Absent: speech deficit - Psychiatric Psychiatric exam: Present: normal affect, normal mood - Skin Skin exam: Present: dry, warm Internal Medicine: Result - Labs CBC & Chem 7: 06/23/17 04:45 06/23/17 04:45 Labs: Short CBC 06/22/17 06/22/17 06/23/17 Range/Units 09:37 16:40 04:45 WBC 4.9 4.6 (4.3-11.1) K/mcL Hgb 8.8 L D 9.9 L 10.2 L (12.9-16.9) g/dL Hct 25.2 L 27.8 L 30.2 L (37.5-50.1) % Plt Count 120 L 109 L (140-400) K/mcL Neutrophils # 3.6 (1.6-8.9) K/mcL BMP 06/23/17 04:45 Sodium 133 L Potassium 3.4 L Chloride 99 Carbon Dioxide 26 BUN 19 Creatinine 1.24 Glucose 108 H Calcium 9.1 - ABG Interpretation ABG results: PT/INR, D-dimer PT 12.0 Seconds (9.4-12.1) 06/21/17 18:06 - Impressions Impressions Chest CTA 06/22/17 03:15 IMPRESSION: 1. No radiographic findings to suggest presence of pulmonary thromboembolism. 2. Interval decrease in size of mediastinal lymphadenopathy particularly in the right peritracheal region. 3. Interval decrease in size with new cavitation involving neoplastic mass within the right upper lobe. 4. Interval development of parenchymal disease, portion which demonstrates nodular characteristics within the right upper lobe. Finding is suspicious for representing infiltrate/pneumonia. Short-term follow-up examination would be helpful for re-evaluation. 5. Tiny right pleural effusion. D/ / 06/22/2017 07:08:33 Santosh [facility]elez MD / [facility] Interpreting Provider: Santosh Velez MD Chest X-Ray 06/22/17 16:05 IMPRESSION: Worsening airspace opacification in the right upper lobe. A prior CT has described a mass in this location. Current findings may represent pneumonitis or edema. D/ / Juan Manuel Jean-Baptiste MD / Juan Manuel Jean-Baptiste MD Interpreting Provider: Juan Manuel Jean-Baptiste MD - VTE Reasons for not Prescribing Prophylaxis: Not indicated-Anticoagulated or INR therapeutic Consult Discharge Plan - Plan Referrals: Vinny Campbell MD [Primary Care Provider] - <Christos Patel H - Last Filed: 06/23/17 13:15> Date of Encounter: 06/23/17 - Constitutional Vitals: Temp Pulse Resp BP Pulse Ox 99.5 F 91 14 118/81 95 06/23/17 10:53 06/23/17 10:53 06/23/17 10:53 06/23/17 10:53 06/23/17 10:53 Internal Medicine: Result - Labs CBC & Chem 7: 06/23/17 04:45 06/23/17 04:45 Labs: Short CBC 06/22/17 06/23/17 Range/Units 16:40 04:45 WBC 4.6 (4.3-11.1) K/mcL Hgb 9.9 L 10.2 L (12.9-16.9) g/dL Hct 27.8 L 30.2 L (37.5-50.1) % Plt Count 109 L (140-400) K/mcL BMP 06/23/17 04:45 Sodium 133 L Potassium 3.4 L Chloride 99 Carbon Dioxide 26 BUN 19 Creatinine 1.24 Glucose 108 H Calcium 9.1 - ABG Interpretation ABG results: PT/INR, D-dimer PT 12.0 Seconds (9.4-12.1) 06/21/17 18:06 - Impressions Impressions Chest X-Ray 06/22/17 16:05 IMPRESSION: Worsening airspace opacification in the right upper lobe. A prior CT has described a mass in this location. Current findings may represent pneumonitis or edema. D/ / Juan Manuel Jean-Baptiste MD / Juan Manuel Jean-Baptiste MD Interpreting Provider: Juan Manuel Jean-Baptiste MD - Attending Attestation Sepsis secondary to healthcare associated pneumonia/possible gram-negative pneumonia present upon admission Continue Levaquin and cefepime Acute on chronic renal failure secondary to sepsis improving I examined this patient and my medical decision-making was reviewed with the Resident Physician. I agree with the documented findings, disposition and treatment plan as described except to the extent set forth below.
[2017-06-23] MEDS ORDERED: Aminoglycoside Consult 1 EACH MC ONE (09:12)
[2017-06-23] MEDS: Levofloxacin 750 MG/150 ML 750 MG/150 ML BAG IVPB SCH (20:48)
[2017-06-24] MEDS: *HR* Enoxaparin 40 MG/0.4 ML SYRINGE SQ SCH (06:36)
[2017-06-24 08:01] LABS: Hematocrit 29.9 % (37.5-50.1); Hemoglobin 10.3 g/dL (12.9-16.9); Mean Corpuscular HGB Conc 34.4 g/dL (31.6-35.5); Mean Corpuscular Hemoglobin 30.6 pg (28.0-33.3); Mean Corpuscular Volume 88.7 fL (83.0-100.0); Mean Platelet Volume 10.3 fL (9.4-12.4); Platelet Count 112 K/mcL (140-400); Red Blood Count 3.37 M/mcL (4.19-5.50); Red Cell Distribution Width 18.3 % (11.5-14.5)
[2017-06-24 08:20] LABS: BUN/Creatinine Ratio 18 (6-26); Blood Urea Nitrogen 23 mg/dL (8-26); Calcium 9.3 mg/dL (8.6-10.8); Carbon Dioxide 25 mEq/L (19-29); Chloride 100 mEq/L (98-109); Glucose 108 mg/dL (70-99); Magnesium 1.6 mg/dL (1.6-2.6); Osmolality,Calculated 282 (280-300); Sodium 134 mEq/L (136-145); eGFR For African Americans > 60 (> 60); eGFR For Non-African Americans 56 (> 60)
[2017-06-24] MEDS: Cefepime HCl 1,000 MG in D5% in Water (Mini-Bag+) 100 ML IVPB SCH ×2 (09:06→20:41)
[2017-06-24] MEDS: Aspirin Enteric Coated 81 MG Tablet PO SCH (09:06)
[2017-06-24] MEDS: Folic Acid 1 MG TABLET PO SCH (09:07)
[2017-06-24] MEDS: Sucralfate 1 GM TABLET PO SCH ×4 (09:07→20:41)
[2017-06-24] MEDS: Pantoprazole 40 MG VIAL IVP SCH (09:07)
[2017-06-24] MEDS: Magnesium Oxide 400 MG TABLET PO SCH (09:07)
[2017-06-24] MEDS: Isosorbide MONOnitrate (24 HR) 60 MG TAB.ER.24H PO SCH (09:07)
--- NOTE | 2017-06-24 10:31 | Internal Med Progress Note ---
<JarochoMars Valdo - Last Filed: 06/24/17 15:36> Date of Encounter: 06/24/17 Time of Encounter: 10:28 - Assessment and plan (1) Pneumonia Current Visit: Yes Status: Suspected Assessment and plan: Present upon admission Pt on chemotherapy so healthcare acquired pneumonia must be considered. CTA showed "Interval development of parenchymal disease, portion which demonstrates nodular characteristics within the right upper lobe. Finding is suspicious for representing infiltrate/pneumonia." Pt still tachycardic lat evening - normal rate now Last fever 06/22 at 16:11 Continue Cefepime, levaquin Legionella and Strep Pneumonia antigens negative. Ucx Negative 06/21 Preliminary Bcx negative Qualifiers: Pneumonia type: due to unspecified organism Laterality: unspecified laterality Lung location: unspecified part of lung Qualified Code(s): J18.9 - Pneumonia, unspecified organism (2) Sepsis Current Visit: Yes Status: Acute Assessment and plan: Likely secondary to healthcare acquired pneumonia present upon admission. continue abx continue to monitor Qualifiers: Sepsis type: sepsis due to unspecified organism Qualified Code(s): A41.9 - Sepsis, unspecified organism (3) Non-small cell cancer of right lung Current Visit: Yes Status: Acute Assessment and plan: Oncology following Patient finished Chemoradiation on 06/09 Has seen reduction in tumor burden as seen on CXR, and CTA. Continue current pain recs F/u with Dr. Castro upon d/c Follow onc's recs (4) Anemia Current Visit: Yes Status: Chronic Assessment and plan: likely anemia of chronic disease 2/2 to CA. Baseline is around 9. was 8.4 on admission. Dropped to 7 on 06/22 - Transfussed 2 units PRBC Hgb 10.3 this morning - remaining stable continue home sucralfate continue PPI per onc's recs transfuse for hgb less than 7, and platelets less than 20k. Qualifiers: Anemia type: other cause Other causes of anemia: chronic disease, neoplastic Qualified Code(s): D63.0 - Anemia in neoplastic disease (5) Acute on chronic renal failure Current Visit: Yes Status: Acute Assessment and plan: baseline Cr 1.1 Was 1.5 on admission Currently 1.27, GFR 56 continue to monitor. avoid nephrotoxins Qualifiers: Acute renal failure type: unspecified Chronic kidney disease stage: stage 3 (moderate) Qualified Code(s): N17.9 - Acute kidney failure, unspecified; N18.3 - Chronic kidney disease, stage 3 (moderate) (6) Dizziness, nonspecific Current Visit: Yes Status: Acute Assessment and plan: Continuing to improve Patient lightheaded. likely 2/2 to chemo effects, plus anemia, plus dehydration. Has been an issue since mid cycle of chemotherapy MRI brain negative for mets. dizziness worse with coughing rule out orthostasis continue IV fluids (7) Hypertension Current Visit: Yes Status: Chronic Assessment and plan: BPs have been well controlled to low. Continue to hold meds continue to monitor. Qualifiers: Hypertension type: essential hypertension Qualified Code(s): I10 - Essential (primary) hypertension (8) DVT prophylaxis Current Visit: Yes Status: Acute Assessment and plan: Patient at high risk for VTE due to CA On lovenox - Subjective Interval history: Patient seen and examined. Reports that he is feeling well with no complaints. States he is feeling 100% better today and his breathing and cough are improving. Denies chills, light-headedness, chest pain, N/V/D, dysuria, or leg pain/swelling. - Constitutional Vitals: Temp Pulse Resp BP Pulse Ox 98.1 F 84 14 109/73 96 06/24/17 07:38 06/24/17 07:38 06/24/17 07:38 06/24/17 07:38 06/24/17 07:38 General appearance: Present: cooperative, A&O X 3, pleasant, answers questions appropriately - Head Head exam: Present: atraumatic, normocephalic - Eye Eye exam: Present: conjuntiva pink, sclera anicteric - Respiratory Respiratory exam: Present: decreased breath sounds, wheezes (and cough with deep inspiration). Absent: rales, rhonchi - Cardiovascular Cardiovascular exam: Present: RRR, +S1, +S2. Absent: diastolic murmur, systolic murmur - GI/Abdominal GI/Abdominal exam: Present: normal bowel sounds, soft. Absent: distended, rigid , tenderness - Extremities Exam Extremities exam: Present: warm. Absent: pedal edema, tenderness - Neurological Exam Neurological exam: Present: alert, CN II-XII intact, oriented X3, no focal deficits Internal Medicine: Result - Labs CBC & Chem 7: 06/24/17 07:55 06/24/17 07:55 Labs: Short CBC 06/24/17 Range/Units 07:55 WBC 4.7 (4.3-11.1) K/mcL Hgb 10.3 L (12.9-16.9) g/dL Hct 29.9 L (37.5-50.1) % Plt Count 112 L (140-400) K/mcL BMP 06/24/17 07:55 Sodium 134 L Potassium 4.0 Chloride 100 Carbon Dioxide 25 BUN 23 Creatinine 1.27 H Glucose 108 H Calcium 9.3 - ABG Interpretation ABG results: PT/INR, D-dimer PT 12.0 Seconds (9.4-12.1) 06/21/17 18:06 - VTE Reasons for not Prescribing Prophylaxis: Not indicated-Anticoagulated or INR therapeutic Consult Discharge Plan - Plan Referrals: Vinny Campbell MD [Primary Care Provider] - <Christos Patel H - Last Filed: 06/24/17 16:09> Date of Encounter: 06/24/17 - Constitutional Vitals: Temp Pulse Resp BP Pulse Ox 98.2 F 108 16 125/89 99 06/24/17 16:03 06/24/17 16:03 06/24/17 16:03 06/24/17 16:03 06/24/17 16:03 Internal Medicine: Result - Labs CBC & Chem 7: 06/24/17 07:55 06/24/17 07:55 Labs: Short CBC 06/24/17 Range/Units 07:55 WBC 4.7 (4.3-11.1) K/mcL Hgb 10.3 L (12.9-16.9) g/dL Hct 29.9 L (37.5-50.1) % Plt Count 112 L (140-400) K/mcL BMP 06/24/17 07:55 Sodium 134 L Potassium 4.0 Chloride 100 Carbon Dioxide 25 BUN 23 Creatinine 1.27 H Glucose 108 H Calcium 9.3 - ABG Interpretation ABG results: PT/INR, D-dimer PT 12.0 Seconds (9.4-12.1) 06/21/17 18:06 - Attending Attestation Sepsis secondary to healthcare associated pneumonia/possible gram-negative pneumonia present upon admission Continue Levaquin and cefepime Acute on chronic renal failure secondary to sepsis I examined this patient and my medical decision-making was reviewed with the Resident Physician. I agree with the documented findings, disposition and treatment plan as described except to the extent set forth below.
[2017-06-25 05:19] LABS: Hematocrit 27.5 % (37.5-50.1); Hemoglobin 9.8 g/dL (12.9-16.9); Mean Corpuscular HGB Conc 35.6 g/dL (31.6-35.5); Mean Corpuscular Hemoglobin 31.7 pg (28.0-33.3); Mean Platelet Volume 10.4 fL (9.4-12.4); Platelet Count 106 K/mcL (140-400); Red Blood Count 3.09 M/mcL (4.19-5.50); Red Cell Distribution Width 18.1 % (11.5-14.5)
[2017-06-25 05:31] LABS: BUN/Creatinine Ratio 18 (6-26); Blood Urea Nitrogen 20 mg/dL (8-26); Calcium 9.2 mg/dL (8.6-10.8); Carbon Dioxide 26 mEq/L (19-29); Chloride 99 mEq/L (98-109); Glucose 108 mg/dL (70-99); Magnesium 1.4 mg/dL (1.6-2.6); Osmolality,Calculated 277 (280-300); Potassium 4.3 mEq/L (3.5-4.5); Sodium 132 mEq/L (136-145); eGFR For African Americans > 60 (> 60); eGFR For Non-African Americans > 60 (> 60)
[2017-06-25] MEDS: *HR* Enoxaparin 40 MG/0.4 ML SYRINGE SQ SCH (06:42)
--- NOTE | 2017-06-25 08:27 | Internal Med Progress Note ---
<AbdelrahmanbrookenattyLavell kumar - Last Filed: 06/25/17 08:25> Date of Encounter: 06/25/17 Time of Encounter: 08:15 - Assessment and plan (1) Pneumonia Current Visit: Yes Status: Suspected Assessment and plan: Present upon admission Pt on chemotherapy so healthcare acquired pneumonia must be considered. CTA showed "Interval development of parenchymal disease, portion which demonstrates nodular characteristics within the right upper lobe. Finding is suspicious for representing infiltrate/pneumonia." Pt still tachycardic Last fever 06/22 at 16:11 Continue Cefepime, levaquin Legionella and Strep Pneumonia antigens negative. Ucx Negative 06/21 Preliminary Bcx negative Qualifiers: Pneumonia type: due to unspecified organism Laterality: unspecified laterality Lung location: unspecified part of lung Qualified Code(s): J18.9 - Pneumonia, unspecified organism (2) Sepsis Current Visit: Yes Status: Acute Assessment and plan: -Likely secondary to healthcare acquired pneumonia present upon admission. -Patient has been tachycardic through out admission. -Fevers have resolved -continue abx -continue to monitor Qualifiers: Sepsis type: sepsis due to unspecified organism Qualified Code(s): A41.9 - Sepsis, unspecified organism (3) Non-small cell cancer of right lung Current Visit: Yes Status: Acute Assessment and plan: -Oncology following -Patient finished Chemoradiation on 06/09 -Has seen reduction in tumor burden as seen on CXR, and CTA. -Continue current pain recs -F/u with Dr. Castro upon d/c -Follow onc's recs (4) Anemia Current Visit: Yes Status: Chronic Assessment and plan: likely anemia of chronic disease 2/2 to CA. Baseline is around 9. was 8.4 on admission. Dropped to 7 on 06/22 - Transfussed 2 units PRBC Hgb 9.8 this morning - remaining stable continue home sucralfate continue PPI per onc's recs transfuse for hgb less than 7, and platelets less than 20k. Qualifiers: Anemia type: other cause Other causes of anemia: chronic disease, neoplastic Qualified Code(s): D63.0 - Anemia in neoplastic disease (5) Dizziness, nonspecific Current Visit: Yes Status: Acute Assessment and plan: Resolved Patient lightheaded. likely 2/2 to chemo effects, plus anemia, plus dehydration. Has been an issue since mid cycle of chemotherapy MRI brain negative for mets. dizziness worse with coughing rule out orthostasis continue IV fluids PT/OT eval today (6) Hypertension Current Visit: Yes Status: Chronic Assessment and plan: -BPs have been well controlled to low. -Continue to hold meds -continue to monitor. Qualifiers: Hypertension type: essential hypertension Qualified Code(s): I10 - Essential (primary) hypertension (7) Acute on chronic renal failure Current Visit: Yes Status: Acute Assessment and plan: baseline Cr 1.1 Was 1.5 on admission Currently 1.11, GFR >60 continue to monitor. avoid nephrotoxins Qualifiers: Acute renal failure type: unspecified Chronic kidney disease stage: stage 3 (moderate) Qualified Code(s): N17.9 - Acute kidney failure, unspecified; N18.3 - Chronic kidney disease, stage 3 (moderate) (8) Pulmonary embolism Current Visit: Yes Status: Suspected Assessment and plan: -Ruled out by CTA. -Heparin drip was stopped. Qualifiers: Pulmonary embolism type: other Chronicity: acute Acute cor pulmonale presence: without acute cor pulmonale Qualified Code(s): I26.99 - Other pulmonary embolism without acute cor pulmonale (9) DVT prophylaxis Current Visit: Yes Status: Acute Assessment and plan: -Patient at high risk for VTE due to CA -continue lovenox - Subjective Interval history: Patient sitting up eating breakfast. He reports feeling 100% and back to normal. Patient is eager to go home, but understands the concerns and doesn't want to go home too soon as well. Patient has been tachycardic and remains so at this time. Pt denies CP, SOB, Cough, lightheadedness. - Constitutional Vitals: Temp Pulse Resp BP Pulse Ox 98.5 F 112 16 98/61 96 06/25/17 07:33 06/25/17 07:33 06/25/17 07:33 06/25/17 07:33 06/25/17 07:33 General appearance: Present: cooperative, A&O X 3, pleasant, answers questions appropriately - Eye Eye exam: Present: PERRL, sclera anicteric - ENT ENT exam: Present: mucous membranes moist - Respiratory Respiratory exam: Present: CTAB. Absent: rales, rhonchi, wheezes - Cardiovascular Cardiovascular exam: Present: RRR, +S1, +S2. Absent: diastolic murmur, gallop, rubs, systolic murmur - GI/Abdominal GI/Abdominal exam: Present: normal bowel sounds, soft. Absent: tenderness - Extremities Exam Extremities exam: Present: warm. Absent: pedal edema, tenderness - Neurological Exam Neurological exam: Present: alert, oriented X3. Absent: no focal deficits, facial droop, speech deficit - Psychiatric Psychiatric exam: Present: normal affect, normal mood - Skin Skin exam: Present: dry, warm Internal Medicine: Result - Labs CBC & Chem 7: 06/25/17 05:07 06/25/17 05:07 Labs: Short CBC 06/25/17 Range/Units 05:07 WBC 4.8 (4.3-11.1) K/mcL Hgb 9.8 L (12.9-16.9) g/dL Hct 27.5 L (37.5-50.1) % Plt Count 106 L (140-400) K/mcL BMP 06/25/17 05:07 Sodium 132 L Potassium 4.3 Chloride 99 Carbon Dioxide 26 BUN 20 Creatinine 1.11 Glucose 108 H Calcium 9.2 - ABG Interpretation ABG results: PT/INR, D-dimer PT 12.0 Seconds (9.4-12.1) 06/21/17 18:06 - VTE Reasons for not Prescribing Prophylaxis: Not indicated-Anticoagulated or INR therapeutic Consult Discharge Plan - Plan Referrals: Vinny Campbell MD [Primary Care Provider] - <Christos Patel H - Last Filed: 06/25/17 13:15> Date of Encounter: 06/25/17 - Constitutional Vitals: Temp Pulse Resp BP Pulse Ox 98.3 F 107 16 128/82 97 06/25/17 11:25 06/25/17 11:25 06/25/17 11:25 06/25/17 11:25 06/25/17 11:25 Internal Medicine: Result - Labs CBC & Chem 7: 06/25/17 05:07 06/25/17 05:07 Labs: Short CBC 06/25/17 Range/Units 05:07 WBC 4.8 (4.3-11.1) K/mcL Hgb 9.8 L (12.9-16.9) g/dL Hct 27.5 L (37.5-50.1) % Plt Count 106 L (140-400) K/mcL BMP 06/25/17 05:07 Sodium 132 L Potassium 4.3 Chloride 99 Carbon Dioxide 26 BUN 20 Creatinine 1.11 Glucose 108 H Calcium 9.2 - ABG Interpretation ABG results: PT/INR, D-dimer PT 12.0 Seconds (9.4-12.1) 06/21/17 18:06 - Attending Attestation Sepsis secondary to healthcare associated pneumonia/possible gram-negative pneumonia present upon admission Continue Levaquin and cefepime Acute on chronic renal failure secondary to sepsis Was still tachycardic ( metoprolol was held due to hypotension) resume metoprolol. May be able to be discharged in the morning if stable and HR properly controlled. COntinue to hold lisinopril I examined this patient and my medical decision-making was reviewed with the Resident Physician. I agree with the documented findings, disposition and treatment plan as described except to the extent set forth below.
[2017-06-25] MEDS: Cefepime HCl 1,000 MG in D5% in Water (Mini-Bag+) 100 ML IVPB SCH ×2 (09:16→20:52)
[2017-06-25] MEDS: Sucralfate 1 GM TABLET PO SCH ×4 (09:17→20:53)
[2017-06-25] MEDS: Magnesium Oxide 400 MG TABLET PO SCH (09:17)
[2017-06-25] MEDS: Aspirin Enteric Coated 81 MG Tablet PO SCH (09:17)
[2017-06-25] MEDS: Isosorbide MONOnitrate (24 HR) 60 MG TAB.ER.24H PO SCH (09:17)
[2017-06-25] MEDS: Folic Acid 1 MG TABLET PO SCH (09:17)
[2017-06-25] MEDS: Levofloxacin 750 MG/150 ML 750 MG/150 ML BAG IVPB SCH (20:53)
[2017-06-26] MEDS: *HR* Enoxaparin 40 MG/0.4 ML SYRINGE SQ SCH (06:27)
[2017-06-26 07:33] LABS: BUN/Creatinine Ratio 18 (6-26); Blood Urea Nitrogen 21 mg/dL (8-26); Calcium 9.5 mg/dL (8.6-10.8); Carbon Dioxide 25 mEq/L (19-29); Chloride 98 mEq/L (98-109); Glucose 102 mg/dL (70-99); Magnesium 1.4 mg/dL (1.6-2.6); Osmolality,Calculated 277 (280-300); Potassium 4.2 mEq/L (3.5-4.5); Sodium 132 mEq/L (136-145); eGFR For African Americans > 60 (> 60); eGFR For Non-African Americans > 60 (> 60)
[2017-06-26 08:34] LABS: Hematocrit 29.8 % (37.5-50.1); Hemoglobin 9.6 g/dL (12.9-16.9); Immature Platelets 3.9 % (1.1-6.1); Mean Corpuscular Hemoglobin 28.4 pg (28.0-33.3); Mean Corpuscular Volume 88.2 fL (83.0-100.0); Mean Platelet Volume 10.7 fL (9.4-12.4); Red Blood Count 3.38 M/mcL (4.19-5.50)
[2017-06-26 08:41] LABS: Mean Corpuscular HGB Conc 32.2 g/dL (31.6-35.5)
[2017-06-26] MEDS: Cefepime HCl 1,000 MG in D5% in Water (Mini-Bag+) 100 ML IVPB SCH (09:10)
[2017-06-26] MEDS: Aspirin Enteric Coated 81 MG Tablet PO SCH (09:11)
[2017-06-26] MEDS: Isosorbide MONOnitrate (24 HR) 60 MG TAB.ER.24H PO SCH (09:11)
[2017-06-26] MEDS: Folic Acid 1 MG TABLET PO SCH (09:11)
[2017-06-26] MEDS: Magnesium Oxide 400 MG TABLET PO SCH (09:11)
[2017-06-26] MEDS: Sucralfate 1 GM TABLET PO SCH ×2 (09:11→11:46)
[2017-06-26] MEDS ORDERED: methylPREDNISolone 125 MG/2 ML VIAL IVP ONE (10:50)
[2017-06-26] MEDS: Ipratropium/Albuterol Neb 3 ML IH SCH ×2 (11:11→16:10)
[2017-06-26 11:20] VITALS: BP 112/66
--- NOTE | 2017-06-26 13:47 | Discharge Summary ---
Date of Encounter: 06/26/17 Time of Encounter: 13:45 - Discharge Diagnosis (1) Sepsis Priority: Primary Status: Acute Qualifiers: Sepsis type: sepsis due to unspecified organism Qualified Code(s): A41.9 - Sepsis, unspecified organism (2) Pneumonia Priority: Primary Status: Suspected Qualifiers: Pneumonia type: due to unspecified organism Laterality: unspecified laterality Lung location: unspecified part of lung Qualified Code(s): J18.9 - Pneumonia, unspecified organism (3) CKD (chronic kidney disease), stage III Priority: Secondary Status: Chronic (4) Non-small cell cancer of right lung Priority: Secondary Status: Acute (5) Hypertension Priority: Secondary Status: Chronic Qualifiers: Hypertension type: essential hypertension Qualified Code(s): I10 - Essential (primary) hypertension (6) DVT prophylaxis Priority: Secondary Status: Acute (7) Acute exacerbation of chronic obstructive pulmonary disease (COPD) Priority: Secondary Status: Acute - Discharge Medications Prescriptions: Ipratropium/Albuterol Neb [Duoneb] 3 ml IH Q6HR #120 inh Cefuroxime PO [Ceftin] 500 mg PO Q12HR #20 tablet GuaiFENesin ER [Mucinex] 600 mg PO BID #20 levoFLOXacin [Levaquin] 500 mg PO DAILY #7 tablet predniSONE [PredniSONE] 10 mg PO DAILY #70 tablet Home Medications: Aspirin Enteric Coated [Aspirin EC] 81 mg PO DAILY 03/09/16 [History] Omeprazole [PriLOSEC] 20 mg PO DAILY PRN 04/08/17 [History] Oxycodone HCl/Acetaminophen [Percocet 7.5-325 mg Tablet] 1 tab PO Q6H PRN [History] Atorvastatin [Lipitor] 40 mg PO HS #30 tablet 04/10/17 [Rx] Isosorbide MONOnitrate (24 HR) [Imdur] 120 mg PO DAILY #30 tab.er.24h 04/10/17 [ Rx] Metoprolol [Lopressor] 25 mg PO BID #60 tablet 04/10/17 [Rx] Nitroglycerin [Nitrostat] 0.4 mg SL AD PRN 04/18/17 [History] Ondansetron HCl [Zofran] 4 mg PO Q6H PRN #40 tablet 04/18/17 [Rx] Prochlorperazine Maleate [Compazine] 10 mg PO Q6HR PRN #40 tablet 04/18/17 [Rx] Ferrous Sulfate [Iron] 325 mg PO DAILY #30 tablet 05/10/17 [Rx] Lisinopril [Zestril] 10 mg PO DAILY #30 tablet 05/10/17 [Rx] Sucralfate [Carafate] 1 gm PO QID #120 tablet 05/22/17 [Rx] Docusate [Colace] 100 mg PO BID #60 capsule 05/29/17 [Rx] Ascorbic Acid [Vitamin C] 250 mg PO DAILY #90 tablet 06/07/17 [Rx] Folic Acid 1 mg PO DAILY #90 tablet 06/07/17 [Rx] Stomatitis Mixture 5 ml PO Q4H PRN 06/21/17 [History] Acetaminophen [Tylenol] 650 mg PO Q6HR PRN tab 06/26/17 [Rx] Cefuroxime PO [Ceftin] 500 mg PO Q12HR #20 tablet 06/26/17 [Rx] GuaiFENesin ER [Mucinex] 600 mg PO BID #20 06/26/17 [Rx] Ipratropium/Albuterol Neb [Duoneb] 3 ml IH Q6HR #120 inh 06/26/17 [Rx] levoFLOXacin [Levaquin] 500 mg PO DAILY #7 tablet 06/26/17 [Rx] predniSONE [PredniSONE] 10 mg PO DAILY #70 tablet 06/26/17 [Rx] Allergies/Adverse Reactions: 3 Allergy/AdvReac Type Severity Reaction Status Date / Time Penicillins Allergy Intermediate Rash Verified 05/31/17 09:17 Date of admission: 06/21/17 22:53 Primary care physician: Vinny Campbell MD Consults: 06/24/17 16:10 Consult to Occupational Therapy [CONS] Routine Comment: Evaluate, develop and implement POC Reason for Consult: eval Consult to Physical Therapy [CONS] Routine Comment: Evaluate, develop and implement POC Reason for Consult: eval Discharging clinician: Camron Le Anticipated date of discharge: 06/26/17 - Patient Status Disposition: Home, Self-Care Condition: Good Overall status at discharge: patient is progressing back to baseline - Discharge Instructions Follow Up With: Vinny Campbell MD [Primary Care Provider] - 07/10/17 8:20 am - Diet and Activity Activity: resume usual activities as tolerated Diet: advance to your usual diet Hospital course: Mr. Aguilar is a 71 year old male admitted for pneumonia. He was treated with IV Levaquin and Rocephin. He was managed by Dr. Joseph. I saw the patient first time and As per his instructions patient was supposed to be discharged today. Patient was noted to have some wheezing on my exam and I think considering the fact that he has 18-[id number]-colo history he should be on nebulizers and steroids and those will be added. He was offered to stay in hospital for another couple of days to treat his COPD exacerbation but he is already tired of this tincture for 5 days and does not want to stay for any more days (to go home. He is advised to return to ER if symptoms develop or worsen or if he changes his mind. Follow up with his family doctor. I will give him a dose of IV Solu- Medrol 125 nebulizer treatment before he goes. - Time Spent with Patient Total time spent providing and/or coordinating discharge services: Greater than 30 minutes - Constitutional Vitals: Temp Pulse Resp BP Pulse Ox 98.1 F 101 16 112/66 94 06/26/17 11:17 06/26/17 11:17 06/26/17 11:17 06/26/17 11:17 06/26/17 11:17 General appearance: Present: cooperative, A&O X 3, pleasant, answers questions appropriately - Head Head exam: Present: atraumatic, normocephalic - Eye Eye exam: Present: PERRL, conjuntiva pink, sclera anicteric Pupils: Present: PERRL - Neck Neck exam general surgery: Present: supple, trachea midline. Absent: lymphadenopathy - Respiratory Respiratory exam: Present: decreased breath sounds, wheezes. Absent: accessory muscle use, rales, rhonchi - Cardiovascular Cardiovascular exam: Present: RRR, +S1, +S2. Absent: diastolic murmur, gallop, rubs, systolic murmur - GI/Abdominal GI/Abdominal exam: Present: normal bowel sounds, soft, no peritoneal signs. Absent: distended, tenderness - Extremities Exam Extremities exam: Present: warm, radial pulses palpable and symmetrical. Absent : calf tenderness, cyanotic, pedal edema - Neurological Exam Neurological exam: Present: CN II-XII intact, oriented X3, no focal deficits. Absent: pronater drift, facial droop, speech deficit - Skin Skin exam: Present: dry, intact - VTE Reasons for not Prescribing Prophylaxis: Not indicated-Anticoagulated or INR therapeutic
== END 2017-06-26 16:40 | disposition home or self-care (01) | DRG 871 ==
LOC: EMEROO 17:12 → 2NENU 17:12 → SUATTDRO 22:53
PROVIDERS: ADMIT Internal Medicine; ATTEND Internal Medicine

== ENCOUNTER 2019-08-09 10:03 | Observation (INO) ==
[2019-08-09 10:34] LABS: Basophils # 0.1 K/mcL (0.0-0.2); Basophils % 0.8 %; Eosinophils # 0.3 K/mcL (0.0-0.6); Eosinophils % 3.4 %; Hematocrit 38.3 % (37.5-50.1); Hemoglobin 12.2 g/dL (12.9-16.9); Immature Granulocytes % 0.4 % (0-4); Lymphocytes # 1.1 K/mcL (0.6-4.6); Lymphocytes % 14.4 %; Mean Corpuscular HGB Conc 31.9 g/dL (31.6-35.5); Mean Corpuscular Hemoglobin 30.2 pg (28.0-33.3); Mean Corpuscular Volume 94.8 fL (83.0-100.0); Monocytes # 0.8 K/mcL (0.0-1.3); Monocytes % 9.7 %; Neutrophils # 5.6 K/mcL (1.6-8.9); Platelet Count 253 K/mcL (140-400); Red Blood Count 4.04 M/mcL (4.19-5.50); Red Cell Distribution Width 13.5 % (11.5-14.5); Segmented Neutrophils % 71.3 %; White Blood Count 7.9 K/mcL (4.3-11.1)
[2019-08-09 10:51] LABS: BUN/Creatinine Ratio 20 (6-26); Blood Urea Nitrogen 28 mg/dL (8-23); Calcium 9.2 mg/dL (8.6-10.3); Carbon Dioxide 24 mEq/L (23-29); Chloride 107 mEq/L (98-107); Glucose 148 mg/dL (70-105); Osmolality,Calculated 294 (280-300); Potassium 4.6 mEq/L (3.5-5.1); Sodium 138 mEq/L (136-145); Troponin I < 0.03 ng/mL (< 0.04); eGFR For African Americans > 60 (> 60); eGFR For Non-African Americans 51 (> 60)
[2019-08-09] MEDS ORDERED: Isovue-370 500 ML BOTTLE IVP ONE (11:10)
[2019-08-09] MEDS ORDERED: 0.9 % Sodium Chloride 1,000 ML IVC ONE (11:10)
[2019-08-09] MEDS ORDERED: Naloxone 0.4 MG/ML INJ IVP PRN (14:38)
[2019-08-09] MEDS ORDERED: Nitroglycerin 0.4 MG TAB.SUBL SL PRN (15:00)
[2019-08-09 22:49] LABS: Bilirubin,Urine Negative (Negative); Blood,Urine Negative (Negative); Clarity,Urine Clear (Clear); Color,Urine Yellow (Yellow); Glucose,Urine (UA) Normal (Normal); Ketones,Urine Negative (Negative); Leukocyte Esterase,Urine Negative (Negative); Nitrite,Urine Negative (Negative); Protein,Urine Negative (Neg-Trace); Urobilinogen,Urine Normal (Normal)
[2019-08-09 23:00] LABS: Amphetamine Screen,Urine Negative ng/mL (Cutoff=1000); Barbiturate Screen,Urine Negative ng/mL (Cutoff=200); Benzodiazepines Screen,Urine Negative ng/mL (Cutoff=200); Cannabinoid Screen,Urine Negative ng/mL (Cutoff = 50); Cocaine Screen,Urine Negative ng/mL (Cutoff= 300); Opiate Screen,Urine Negative ng/mL (Cutoff=300); Phencyclidine Screen,Urine Negative ng/mL (Cutoff=25)
[2019-08-10 01:08] LABS: Basophils % 0.6 %; Eosinophils # 0.2 K/mcL (0.0-0.6); Hematocrit 35.2 % (37.5-50.1); Hemoglobin 11.1 g/dL (12.9-16.9); Immature Granulocytes % 0.2 % (0-4); Lymphocytes # 0.8 K/mcL (0.6-4.6); Lymphocytes % 12.7 %; Mean Corpuscular HGB Conc 31.5 g/dL (31.6-35.5); Mean Corpuscular Hemoglobin 30.3 pg (28.0-33.3); Mean Corpuscular Volume 96.2 fL (83.0-100.0); Monocytes # 0.8 K/mcL (0.0-1.3); Monocytes % 12.4 %; Neutrophils # 4.5 K/mcL (1.6-8.9); Platelet Count 216 K/mcL (140-400); Red Blood Count 3.66 M/mcL (4.19-5.50); Red Cell Distribution Width 13.6 % (11.5-14.5); Segmented Neutrophils % 71.1 %; White Blood Count 6.4 K/mcL (4.3-11.1)
[2019-08-10 01:29] LABS: BUN/Creatinine Ratio 21 (6-26); Blood Urea Nitrogen 25 mg/dL (8-23); Calcium 8.8 mg/dL (8.6-10.3); Carbon Dioxide 23 mEq/L (23-29); Chloride 109 mEq/L (98-107); Glucose 99 mg/dL (70-105); Osmolality,Calculated 294 (280-300); Potassium 4.3 mEq/L (3.5-5.1); Sodium 140 mEq/L (136-145); eGFR For African Americans > 60 (> 60); eGFR For Non-African Americans 59 (> 60)
[2019-08-10] MEDS: Folic Acid 1 MG TABLET PO SCH (07:42)
[2019-08-10] MEDS: amLODIPine 5 MG TABLET PO SCH (07:42)
[2019-08-10] MEDS: Aspirin Enteric Coated 81 MG Tablet PO SCH (07:42)
[2019-08-10] MEDS: Ascorbic Acid 500 MG TABLET PO SCH (07:42)
[2019-08-10] MEDS: Isosorbide MONOnitrate (24 HR) 30 MG TAB.ER.24H PO SCH (07:43)
[2019-08-10] MEDS ORDERED: Gadolinium Contrast Agent (WT Based) IV PRN ×2 (12:30→12:43)
[2019-08-10] MEDS: levETIRAcetam 250 MG TABLET PO SCH (17:23)
[2019-08-10] MEDS: *HR* Heparin 5,000 UNIT/ML VIAL SQ SCH (17:23)
[2019-08-11] MEDS: levETIRAcetam 250 MG TABLET PO SCH ×2 (05:57→17:55)
[2019-08-11] MEDS: *HR* Heparin 5,000 UNIT/ML VIAL SQ SCH ×2 (05:59→17:56)
[2019-08-11] MEDS: Isosorbide MONOnitrate (24 HR) 30 MG TAB.ER.24H PO SCH (11:28)
[2019-08-11] MEDS: Aspirin Enteric Coated 81 MG Tablet PO SCH (11:29)
[2019-08-11] MEDS: Ascorbic Acid 500 MG TABLET PO SCH (11:29)
[2019-08-11] MEDS: Folic Acid 1 MG TABLET PO SCH (11:29)
[2019-08-11] MEDS: amLODIPine 5 MG TABLET PO SCH (11:30)
[2019-08-12] MEDS: *HR* Heparin 5,000 UNIT/ML VIAL SQ SCH (05:11)
[2019-08-12] MEDS: levETIRAcetam 250 MG TABLET PO SCH (05:11)
[2019-08-12] MEDS: amLODIPine 5 MG TABLET PO SCH (07:47)
[2019-08-12] MEDS: Isosorbide MONOnitrate (24 HR) 30 MG TAB.ER.24H PO SCH (07:48)
[2019-08-12] MEDS: Folic Acid 1 MG TABLET PO SCH (07:49)
[2019-08-12] MEDS: Ascorbic Acid 500 MG TABLET PO SCH (07:50)
[2019-08-12] MEDS: Aspirin Enteric Coated 81 MG Tablet PO SCH (07:50)
[2019-08-12 11:18] VITALS: BP 89/53
== END 2019-08-12 18:02 | disposition home or self-care (01) ==
LOC: 3BNU 10:03 → EMEROOARM 10:03 → SUATTDRO 13:55 → 3BNU 14:52
PROVIDERS: ADMIT Internal Medicine; ATTEND Internal Medicine

== ENCOUNTER 2020-01-15 10:41 | Observation (INO) ==
[2020-01-15] MEDS ORDERED: 0.9 % Sodium Chloride 500 ML IVC ONE (10:51)
[2020-01-15 11:22] LABS: Basophils % 0.6 %; Eosinophils # 0.3 K/mcL (0.0-0.6); Eosinophils % 4.2 %; Hematocrit 32.5 % (37.5-50.1); Hemoglobin 10.1 g/dL (12.9-16.9); Immature Granulocytes % 0.4 % (0-4); Lymphocytes # 1.2 K/mcL (0.6-4.6); Mean Corpuscular HGB Conc 31.1 g/dL (31.6-35.5); Mean Corpuscular Hemoglobin 28.7 pg (28.0-33.3); Mean Corpuscular Volume 92.3 fL (83.0-100.0); Mean Platelet Volume 10.4 fL (9.4-12.4); Monocytes # 0.9 K/mcL (0.0-1.3); Monocytes % 12.7 %; Neutrophils # 4.7 K/mcL (1.6-8.9); Platelet Count 251 K/mcL (140-400); Red Blood Count 3.52 M/mcL (4.19-5.50); Red Cell Distribution Width 13.6 % (11.5-14.5); Segmented Neutrophils % 65.1 %; White Blood Count 7.2 K/mcL (4.3-11.1)
[2020-01-15 11:55] LABS: Prothrombin Time 11.6 Seconds (9.4-12.1)
[2020-01-15 11:58] LABS: Activated Partial Thrombo Time 35.7 Seconds (26.0-36.0)
[2020-01-15 12:12] LABS: Albumin 3.7 g/dL (3.5-5.7); Albumin/Globulin Ratio 1.3 (1.1-2.2); Bilirubin,Direct 0.1 mg/dL (0.0-0.2); Bilirubin,Indirect 0.2 mg/dL (0.0-1.0); Bilirubin,Total 0.3 mg/dL (0.3-1.0); Globulin 2.9 g/dL (2.4-3.5); Total Protein 6.6 g/dL (6.4-8.9)
[2020-01-15 12:17] LABS: BUN/Creatinine Ratio 18 (6-26); Blood Urea Nitrogen 22 mg/dL (8-23); Carbon Dioxide 25 mEq/L (23-29); Chloride 108 mEq/L (98-107); Glucose 96 mg/dL (70-105); Osmolality,Calculated 293 (280-300); Potassium 4.4 mEq/L (3.5-5.1); Sodium 140 mEq/L (136-145); Troponin I < 0.03 ng/mL (< 0.04); eGFR For African Americans > 60 (> 60); eGFR For Non-African Americans 56 (> 60)
[2020-01-15] MEDS ORDERED: Naloxone 0.4 MG/ML INJ IVP PRN (16:06)
[2020-01-15] MEDS: levETIRAcetam 250 MG TABLET PO SCH (17:03)
[2020-01-16 03:09] LABS: Hematocrit 33.5 % (37.5-50.1); Hemoglobin 10.4 g/dL (12.9-16.9); Mean Corpuscular Hemoglobin 28.6 pg (28.0-33.3); Mean Platelet Volume 10.4 fL (9.4-12.4); Platelet Count 248 K/mcL (140-400); Red Blood Count 3.64 M/mcL (4.19-5.50); Red Cell Distribution Width 13.5 % (11.5-14.5); White Blood Count 6.4 K/mcL (4.3-11.1)
[2020-01-16 03:21] LABS: BUN/Creatinine Ratio 19 (6-26); Blood Urea Nitrogen 20 mg/dL (8-23); Calcium 8.9 mg/dL (8.6-10.3); Carbon Dioxide 24 mEq/L (23-29); Chloride 109 mEq/L (98-107); Glucose 103 mg/dL (70-105); Osmolality,Calculated 289 (280-300); Potassium 3.8 mEq/L (3.5-5.1); Sodium 138 mEq/L (136-145); eGFR For African Americans > 60 (> 60); eGFR For Non-African Americans > 60 (> 60)
[2020-01-16] MEDS: levETIRAcetam 250 MG TABLET PO SCH ×2 (05:40→17:05)
[2020-01-16] MEDS ORDERED: amLODIPine 5 MG TABLET PO SCH (09:00)
[2020-01-16] MEDS ORDERED: Isosorbide MONOnitrate (24 HR) 60 MG TAB.ER.24H PO SCH (09:00)
[2020-01-16] MEDS ORDERED: Aspirin Enteric Coated 81 MG Tablet PO SCH (09:00)
[2020-01-16] MEDS ORDERED: Ascorbic Acid 500 MG TABLET PO SCH (09:00)
[2020-01-16] MEDS ORDERED: Folic Acid 1 MG TABLET PO SCH (09:00)
[2020-01-16 16:07] VITALS: BP 155/72
[2020-01-16] MEDS ORDERED: Sucralfate 1 GM TABLET PO SCH (16:30)
== END 2020-01-16 18:01 | disposition home or self-care (01) ==
LOC: EMEROOARM 10:41 → 3BNU 10:41
PROVIDERS: ADMIT Family Medicine; ATTEND Family Medicine

== ENCOUNTER 2020-03-31 10:10 | Observation (INO) ==
[2020-03-31] MEDS ORDERED: Tdap (Boostrix) Vaccine 0.5 ML SYRINGE IM ONE (10:19)
[2020-03-31 10:28] LABS: Hematocrit 37.4 % (37.5-50.1); Hemoglobin 11.3 g/dL (12.9-16.9); Mean Corpuscular HGB Conc 30.2 g/dL (31.6-35.5); Mean Corpuscular Hemoglobin 27.2 pg (28.0-33.3); Mean Corpuscular Volume 90.1 fL (83.0-100.0); Mean Platelet Volume 9.2 fL (9.4-12.4); Platelet Count 347 K/mcL (140-400); Red Blood Count 4.15 M/mcL (4.19-5.50); Red Cell Distribution Width 13.7 % (11.5-14.5)
[2020-03-31 10:41] LABS: Prothrombin Time 11.6 Seconds (9.4-12.1)
[2020-03-31 10:43] LABS: Activated Partial Thrombo Time 32.9 Seconds (26.0-36.0)
[2020-03-31] MEDS ORDERED: Aspirin 81 MG TAB.CHEW PO STA (10:48)
[2020-03-31] MEDS ORDERED: Isovue-370 500 ML BOTTLE IVP ONE (10:51)
[2020-03-31 10:57] LABS: BUN/Creatinine Ratio 14 (6-26); Blood Urea Nitrogen 20 mg/dL (8-23); Carbon Dioxide 26 mEq/L (23-29); Chloride 106 mEq/L (98-107); Glucose 167 mg/dL (70-105); Osmolality,Calculated 296 (280-300); Potassium 4.6 mEq/L (3.5-5.1); Sodium 140 mEq/L (136-145); Troponin I < 0.03 ng/mL (< 0.04); eGFR For African Americans 59 (> 60); eGFR For Non-African Americans 48 (> 60)
[2020-03-31] MEDS ORDERED: levETIRAcetam 1,000 MG in 0.9 % Sodium Chloride 100 ML IVPB STA (11:52)
[2020-03-31] MEDS ORDERED: Naloxone 0.4 MG/ML INJ IVP PRN (12:08)
[2020-03-31] MEDS ORDERED: Nitroglycerin 0.4 MG TAB.SUBL SL PRN (12:10)
[2020-03-31 13:42] LABS: Alanine Aminotransferase 11 Units/L (7-52); Albumin 3.7 g/dL (3.5-5.7); Albumin/Globulin Ratio 1.2 (1.1-2.2); Alkaline Phosphatase 86 Units/L (34-104); Aspartate Amino Transferase 12 Units/L (13-39); Basophils # 0.1 K/mcL (0.0-0.2); Basophils % 0.6 %; Bilirubin,Total 0.3 mg/dL (0.3-1.0); Chol/HDL Ratio 2.5 (0-4.9); Cholesterol 111 mg/dL (< 200); Eosinophils # 0.3 K/mcL (0.0-0.6); Eosinophils % 2.7 %; Globulin 3.1 g/dL (2.4-3.5); HDL Cholesterol 45 mg/dL (40-59); Immature Granulocytes % 0.3 % (0-4); LDL Cholesterol,Calculated 47 mg/dL (0-99); Lymphocytes # 1.9 K/mcL (0.6-4.6); Lymphocytes % 15.4 %; Monocytes # 1.1 K/mcL (0.0-1.3); Monocytes % 9.1 %; Neutrophils # 8.6 K/mcL (1.6-8.9); Segmented Neutrophils % 71.9 %; Total Protein 6.8 g/dL (6.4-8.9); Triglycerides 97 mg/dL (< 150)
[2020-03-31 14:12] LABS: Estimated Average Glucose 146 mg/dl
[2020-03-31] MEDS ORDERED: *HR* LORazepam 2 MG/ML VIAL IVP PRN (16:01)
[2020-03-31] MEDS ORDERED: Dextrose Gel 15 GM/37.5 ML TUBE PO PRN ×2 (16:03)
[2020-03-31] MEDS ORDERED: *HR* Dextrose 50 % in Water (Syg) 50 ML SYRINGE IVP PRN (16:03)
[2020-03-31] MEDS ORDERED: D5% in Water 1,000 ML IVC PRN (16:03)
[2020-03-31] MEDS: Insulin LISPRO 300 UNITS/3 ML VIAL SQ SCH (16:59)
[2020-03-31] MEDS: Sucralfate 1 GM TABLET PO SCH ×2 (16:59→20:47)
[2020-03-31] MEDS: *HR* Heparin 5,000 UNIT/ML VIAL SQ SCH (16:59)
[2020-03-31] MEDS: levETIRAcetam 250 MG TABLET PO SCH (20:47)
[2020-03-31] MEDS ORDERED: Insulin LISPRO 300 UNITS/3 ML VIAL SQ SCH (21:00)
[2020-03-31] MEDS ORDERED: levETIRAcetam 250 MG TABLET PO SCH (21:00)
[2020-04-01] MEDS: Sucralfate 1 GM TABLET PO SCH (05:36)
[2020-04-01] MEDS: *HR* Heparin 5,000 UNIT/ML VIAL SQ SCH (05:36)
[2020-04-01 05:48] LABS: Basophils # 0.1 K/mcL (0.0-0.2); Basophils % 0.7 %; Eosinophils # 0.3 K/mcL (0.0-0.6); Eosinophils % 3.3 %; Hematocrit 35.3 % (37.5-50.1); Immature Granulocytes % 0.2 % (0-4); Lymphocytes # 0.9 K/mcL (0.6-4.6); Lymphocytes % 11.2 %; Mean Corpuscular HGB Conc 31.2 g/dL (31.6-35.5); Mean Corpuscular Hemoglobin 27.4 pg (28.0-33.3); Mean Corpuscular Volume 87.8 fL (83.0-100.0); Mean Platelet Volume 9.3 fL (9.4-12.4); Monocytes # 0.9 K/mcL (0.0-1.3); Monocytes % 11.2 %; Neutrophils # 5.9 K/mcL (1.6-8.9); Platelet Count 311 K/mcL (140-400); Red Blood Count 4.02 M/mcL (4.19-5.50); Red Cell Distribution Width 13.6 % (11.5-14.5); Segmented Neutrophils % 73.4 %; White Blood Count 8.1 K/mcL (4.3-11.1)
[2020-04-01 06:08] LABS: BUN/Creatinine Ratio 18 (6-26); Blood Urea Nitrogen 22 mg/dL (8-23); Calcium 9.1 mg/dL (8.6-10.3); Carbon Dioxide 26 mEq/L (23-29); Chloride 105 mEq/L (98-107); Glucose 101 mg/dL (70-105); Osmolality,Calculated 289 (280-300); Potassium 4.2 mEq/L (3.5-5.1); Sodium 138 mEq/L (136-145); eGFR For African Americans > 60 (> 60); eGFR For Non-African Americans 57 (> 60)
[2020-04-01] MEDS ORDERED: Aspirin Enteric Coated 81 MG Tablet PO SCH (09:00)
[2020-04-01] MEDS ORDERED: Isosorbide MONOnitrate (24 HR) 60 MG TAB.ER.24H PO SCH (09:00)
[2020-04-01] MEDS ORDERED: Folic Acid 1 MG TABLET PO SCH (09:00)
[2020-04-01] MEDS ORDERED: amLODIPine 5 MG TABLET PO SCH (10:00)
[2020-04-01] MEDS: Insulin LISPRO 300 UNITS/3 ML VIAL SQ SCH (10:03)
[2020-04-01 11:52] VITALS: BP 117/72
[2020-04-01] MEDS: levETIRAcetam 250 MG TABLET PO SCH (14:38)
== END 2020-04-01 15:12 | disposition home health service (06) ==
LOC: EMEROOARM 10:10 → 3BNU 10:10 → SUATTDRO 12:08 → 3BNU 12:32
PROVIDERS: ADMIT Internal Medicine; ATTEND Internal Medicine

== ENCOUNTER 2020-06-23 11:13 | Observation (INO) ==
[2020-06-23] MEDS ORDERED: 0.9 % Sodium Chloride 1,000 ML IVC ONE (11:24)
[2020-06-23] MEDS ORDERED: levETIRAcetam 1,000 MG in 0.9 % Sodium Chloride 100 ML IVPB ONE (11:24)
[2020-06-23] MEDS ORDERED: Isovue-370 500 ML BOTTLE IVP ONE (11:25)
[2020-06-23 11:52] LABS: Basophils % 0.3 %; Eosinophils # 0.1 K/mcL (0.0-0.6); Eosinophils % 0.8 %; Hematocrit 30.6 % (37.5-50.1); Hemoglobin 9.2 g/dL (12.9-16.9); Immature Granulocytes % 0.5 % (0-4); Lymphocytes % 7.4 %; Mean Corpuscular HGB Conc 30.1 g/dL (31.6-35.5); Mean Corpuscular Hemoglobin 25.8 pg (28.0-33.3); Mean Corpuscular Volume 85.7 fL (83.0-100.0); Mean Platelet Volume 9.5 fL (9.4-12.4); Monocytes # 0.9 K/mcL (0.0-1.3); Platelet Count 370 K/mcL (140-400); Red Blood Count 3.57 M/mcL (4.19-5.50); Red Cell Distribution Width 15.2 % (11.5-14.5); White Blood Count 13.1 K/mcL (4.3-11.1)
[2020-06-23 12:14] LABS: BUN/Creatinine Ratio 16 (6-26); Blood Urea Nitrogen 21 mg/dL (8-23); Calcium 8.8 mg/dL (8.6-10.3); Carbon Dioxide 22 mEq/L (23-29); Chloride 106 mEq/L (98-107); Glucose 188 mg/dL (70-105); Magnesium 1.7 mg/dL (1.6-2.6); Osmolality,Calculated 296 (280-300); Phosphorous 2.7 mg/dL (2.7-4.5); Potassium 3.9 mEq/L (3.5-5.1); Sodium 139 mEq/L (136-145); eGFR For African Americans > 60 (> 60); eGFR For Non-African Americans 52 (> 60)
[2020-06-23] MEDS ORDERED: cefTRIAXone 1,000 MG in Water for inj. (sterile) 10 ML IVP ONE (13:13)
[2020-06-23] MEDS ORDERED: Azithromycin 500 MG in 0.9 % Sodium Chloride 250 ML IVPB ONE (13:13)
[2020-06-23] MEDS ORDERED: Naloxone 0.4 MG/ML INJ IVP PRN (13:27)
[2020-06-23] MEDS ORDERED: Gadolinium Contrast Agent (WT Based) IV PRN (15:30)
[2020-06-23] MEDS: *HR* Heparin 5,000 UNIT/ML VIAL SQ SCH (18:58)
[2020-06-24] MEDS: *HR* Heparin 5,000 UNIT/ML VIAL SQ SCH (05:17)
[2020-06-24 06:28] LABS: Basophils # 0.1 K/mcL (0.0-0.2); Basophils % 0.7 %; Eosinophils # 0.2 K/mcL (0.0-0.6); Eosinophils % 2.4 %; Hematocrit 30.5 % (37.5-50.1); Hemoglobin 9.1 g/dL (12.9-16.9); Immature Granulocytes % 0.4 % (0-4); Lymphocytes # 0.7 K/mcL (0.6-4.6); Lymphocytes % 10.5 %; Mean Corpuscular HGB Conc 29.8 g/dL (31.6-35.5); Mean Corpuscular Hemoglobin 25.3 pg (28.0-33.3); Mean Platelet Volume 9.9 fL (9.4-12.4); Monocytes # 0.9 K/mcL (0.0-1.3); Monocytes % 13.1 %; Neutrophils # 5.1 K/mcL (1.6-8.9); Platelet Count 374 K/mcL (140-400); Red Blood Count 3.59 M/mcL (4.19-5.50); Red Cell Distribution Width 15.3 % (11.5-14.5); Segmented Neutrophils % 72.9 %
[2020-06-24 07:18] LABS: BUN/Creatinine Ratio 18 (6-26); Blood Urea Nitrogen 20 mg/dL (8-23); Calcium 8.9 mg/dL (8.6-10.3); Carbon Dioxide 23 mEq/L (23-29); Chloride 110 mEq/L (98-107); Glucose 118 mg/dL (70-105); Magnesium 1.9 mg/dL (1.6-2.6); Osmolality,Calculated 298 (280-300); Phosphorous 2.7 mg/dL (2.7-4.5); Potassium 3.7 mEq/L (3.5-5.1); Sodium 142 mEq/L (136-145); eGFR For African Americans > 60 (> 60); eGFR For Non-African Americans > 60 (> 60)
[2020-06-24 08:37] LABS: Bilirubin,Urine Negative (Negative); Blood,Urine Negative (Negative); Clarity,Urine Clear (Clear); Color,Urine Light-Yellow (Yellow); Glucose,Urine (UA) Normal (Normal); Ketones,Urine Trace mg/dL (Negative); Leukocyte Esterase,Urine Negative (Negative); Nitrite,Urine Negative (Negative); Protein,Urine 30 mg/dL (Neg-Trace); RBC,Urine 0-3 per hpf (0-3); Specific Gravity,Urine > 1.030 (1.010-1.025); Squamous Epithelial Cell,Urine Few per hpf (None-Few); Urobilinogen,Urine Normal (Normal); WBC,Urine 0-3 per hpf (0-3)
[2020-06-24] MEDS ORDERED: cefTRIAXone 1,000 MG in Water for inj. (sterile) 10 ML IVP SCH (09:00)
[2020-06-24] MEDS ORDERED: Azithromycin 250 MG TABLET PO SCH (09:00)
[2020-06-24 10:12] LABS: Amphetamine Screen,Urine Negative ng/mL (Cutoff=1000); Barbiturate Screen,Urine Negative ng/mL (Cutoff=200); Benzodiazepines Screen,Urine Negative ng/mL (Cutoff=200); Cannabinoid Screen,Urine Negative ng/mL (Cutoff = 50); Cocaine Screen,Urine Negative ng/mL (Cutoff= 300); Opiate Screen,Urine Negative ng/mL (Cutoff=300); Phencyclidine Screen,Urine Negative ng/mL (Cutoff=25)
[2020-06-24 11:07] VITALS: BP 137/86
[2020-06-24] MEDS ORDERED: Aspirin Enteric Coated 81 MG Tablet PO SCH (11:15)
[2020-06-24] MEDS ORDERED: Isosorbide MONOnitrate (24 HR) 60 MG TAB.ER.24H PO SCH (11:15)
[2020-06-24] MEDS ORDERED: levETIRAcetam 250 MG TABLET PO SCH (11:15)
[2020-06-24] MEDS ORDERED: Sucralfate 1 GM TABLET PO SCH (11:30)
[2020-06-25] MEDS ORDERED: amLODIPine 5 MG TABLET PO SCH (09:00)
[2020-06-25] MEDS ORDERED: Ascorbic Acid 500 MG TABLET PO SCH (09:00)
[2020-06-25] MEDS ORDERED: Folic Acid 1 MG TABLET PO SCH (09:00)
== END 2020-06-24 13:06 | disposition home or self-care (01) ==
LOC: EMEROOARM 11:13 → 3BNU 11:13 → SUATTDRO 13:51 → 3BNU 14:33
PROVIDERS: ADMIT Internal Medicine; ATTEND Internal Medicine

== ENCOUNTER 2021-10-07 12:31 | Observation (INO) ==
[~2021-10-07 12:31] MED LIST: Clindamycin 900 MG/50 ML 900 MG/50 ML IV.SOLN IVPB SCH
[2021-10-07] MEDS ORDERED: Ipratropium/Albuterol Neb 3 ML IH ONE (12:54)
[2021-10-07 13:10] LABS: Basophils # 0.1 K/mcL (0.0-0.2); Basophils % 0.5 %; Eosinophils # 0.2 K/mcL (0.0-0.6); Eosinophils % 2.5 %; Hematocrit 39.8 % (37.5-50.1); Hemoglobin 12.2 g/dL (12.9-16.9); Immature Granulocytes % 0.2 % (0-4); Lymphocytes # 1.6 K/mcL (0.6-4.6); Lymphocytes % 16.9 %; Mean Corpuscular HGB Conc 30.7 g/dL (31.6-35.5); Mean Corpuscular Volume 94.8 fL (83.0-100.0); Monocytes # 0.9 K/mcL (0.0-1.3); Neutrophils # 6.4 K/mcL (1.6-8.9); Platelet Count 249 K/mcL (140-400); Red Cell Distribution Width 14.3 % (11.5-14.5); Segmented Neutrophils % 69.9 %; White Blood Count 9.2 K/mcL (4.3-11.1)
[2021-10-07 13:16] LABS: INR 1.1; Prothrombin Time 11.8 Seconds (9.4-12.1)
[2021-10-07 13:56] LABS: BUN/Creatinine Ratio 18 (6-26); Blood Urea Nitrogen 29 mg/dL (8-23); Calcium 9.2 mg/dL (8.6-10.3); Carbon Dioxide 23 mEq/L (23-29); Chloride 107 mEq/L (98-107); Glucose 116 mg/dL (70-105); Osmolality,Calculated 301 (280-300); Potassium 4.1 mEq/L (3.5-5.1); Sodium 142 mEq/L (136-145); eGFR For African Americans 51 (> 60); eGFR For Non-African Americans 42 (> 60)
[2021-10-07 14:03] LABS: Troponin I < 0.03 ng/mL (< 0.04)
[2021-10-07] MEDS ORDERED: *HR* Midazolam HCl 2 MG/2 ML VIAL ONE (14:58)
[2021-10-07] MEDS ORDERED: *HR* FentaNYL (PF) 100 MCG/2 ML VIAL ONE (14:58)
[2021-10-07] MEDS ORDERED: Clindamycin 600 MG/50 ML 1,200 MG/100 ML IV.SOLN IVPB ONE (14:59)
[2021-10-07] MEDS ORDERED: 0.9 % Sodium Chloride 1,000 ML ONE (14:59)
[2021-10-07] MEDS ORDERED: 0.9 % Sodium Chloride 500 ML ONE (14:59)
[2021-10-07] MEDS ORDERED: Nitroglycerin 0.4 MG TAB.SUBL SL PRN (15:32)
[2021-10-07] MEDS ORDERED: Naloxone 0.4 MG/ML INJ IVP PRN (15:33)
[2021-10-07] MEDS: predniSONE 20 MG TABLET PO SCH (17:47)
[2021-10-07 18:08] LABS: Magnesium 2.2 mg/dL (1.6-2.6); Phosphorous 2.9 mg/dL (2.7-4.5)
[2021-10-07] MEDS: Levalbuterol Neb 1.25 MG/3 ML IH SCH ×2 (20:36→21:38)
[2021-10-07] MEDS: levETIRAcetam 250 MG TABLET PO SCH (20:50)
[2021-10-08] MEDS: Levalbuterol Neb 1.25 MG/3 ML IH SCH ×2 (04:25→09:40)
[2021-10-08] MEDS ORDERED: *HR* Enoxaparin 40 MG/0.4 ML SYRINGE SQ SCH (06:00)
[2021-10-08] MEDS: predniSONE 20 MG TABLET PO SCH (08:38)
[2021-10-08] MEDS: levETIRAcetam 250 MG TABLET PO SCH (08:40)
[2021-10-08] MEDS ORDERED: Ascorbic Acid 500 MG TABLET PO SCH (09:00)
[2021-10-08] MEDS ORDERED: Isosorbide MONOnitrate (24 HR) 60 MG TAB.ER.24H PO SCH (09:00)
[2021-10-08] MEDS ORDERED: Cyanocobalamin (B-12) 1,000 MCG TABLET PO SCH (09:00)
[2021-10-08] MEDS ORDERED: Cholecalciferol (D-3) 1,000 UNIT (25MCG) TABLET PO SCH (09:00)
[2021-10-08] MEDS ORDERED: Aspirin Enteric Coated 81 MG Tablet PO SCH (09:00)
[2021-10-08] MEDS ORDERED: Folic Acid 1 MG TABLET PO SCH (09:00)
[2021-10-08] MEDS ORDERED: amLODIPine 5 MG TABLET PO SCH (09:00)
[2021-10-08 09:59] LABS: Calcium 9.2 mg/dL (8.6-10.3); Magnesium 2.2 mg/dL (1.6-2.6); Phosphorous 2.2 mg/dL (2.7-4.5); Potassium 4.2 mEq/L (3.5-5.1)
[2021-10-08 11:23] VITALS: TEMP 97.8
[2021-10-08 13:39] VITALS: O2SAT 95
[2021-10-08 15:26] VITALS: BP 124/74; PULSE 105
== END 2021-10-08 15:45 | disposition home or self-care (01) ==
LOC: 2NNU 12:31 → EMEROOARM 12:31 → SUATTDRO 15:08 → 2NNU 15:19
PROVIDERS: ADMIT Pharmacist; ATTEND Student in an Organized Health Care Education/Training Program

== ENCOUNTER 2022-03-08 10:26 | Inpatient (IN) ==
[2022-03-08] MEDS ORDERED: 0.9 % Sodium Chloride 1,000 ML ONE ×2 (10:58→13:26)
[2022-03-08] MEDS ORDERED: *HR* FentaNYL (PF) 100 MCG/2 ML VIAL ONE (13:25)
[2022-03-08] MEDS ORDERED: *HR* Heparin 10,000 UNIT/10 ML VIAL ONE (13:26)
[2022-03-08] MEDS ORDERED: Nitroglycerin 1,000 MCG/5 ML VIAL IV ONE (13:26)
[2022-03-08] MEDS ORDERED: Heparin 1,000 UNITS/500 mL 500 ML ONE (13:26)
[2022-03-08] MEDS ORDERED: ISOVUE-370 200 ML INFUS..BTL ONE (13:26)
[2022-03-08] MEDS ORDERED: *HR* Midazolam HCl 2 MG/2 ML VIAL ONE (13:26)
[2022-03-08] MEDS ORDERED: Perflutren Lipid Microsphere 1.3 ML in 0.9 % Sodium Chloride 8.7 ML IVP PRN (15:06)
[2022-03-08] MEDS ORDERED: carvediloL 6.25 MG TABLET PO SCH (15:58)
[2022-03-08] MEDS: carvediloL 6.25 MG TABLET PO SCH (17:24)
[2022-03-09] MEDS ORDERED: Gadolinium Contrast Agent (WT Based) IV PRN (07:13)
[2022-03-09] MEDS: carvediloL 6.25 MG TABLET PO SCH ×2 (08:25→18:07)
[2022-03-09 08:38] LABS: Basophils # 0.1 K/mcL (0.0-0.2); Basophils % 0.6 %; Eosinophils # 0.4 K/mcL (0.0-0.6); Eosinophils % 4.4 %; Hematocrit 43.3 % (37.5-50.1); Hemoglobin 13.8 g/dL (12.9-16.9); Immature Granulocytes % 0.2 % (0-4); Lymphocytes % 12.2 %; Mean Corpuscular HGB Conc 31.9 g/dL (31.6-35.5); Mean Corpuscular Hemoglobin 28.3 pg (28.0-33.3); Mean Corpuscular Volume 88.7 fL (83.0-100.0); Mean Platelet Volume 10.3 fL (9.4-12.4); Monocytes # 0.9 K/mcL (0.0-1.3); Monocytes % 11.1 %; Neutrophils # 5.9 K/mcL (1.6-8.9); Platelet Count 242 K/mcL (140-400); Red Blood Count 4.88 M/mcL (4.19-5.50); Red Cell Distribution Width 15.6 % (11.5-14.5); Segmented Neutrophils % 71.5 %; White Blood Count 8.2 K/mcL (4.3-11.1)
[2022-03-09] MEDS ORDERED: Isovue-370 500 ML BOTTLE IVP ONE (12:20)
[2022-03-09 15:09] LABS: BUN/Creatinine Ratio 20 (6-26); Blood Urea Nitrogen 25 mg/dL (8-23); eGFR For African Americans > 60 (> 60); eGFR For Non-African Americans 56 (> 60)
[2022-03-09 19:03] LABS: INR 1.1; Prothrombin Time 11.8 Seconds (9.4-12.1)
[2022-03-09 19:06] LABS: Activated Partial Thrombo Time 30.7 Seconds (26.0-36.0)
[2022-03-09 19:49] LABS: Calcium 9.3 mg/dL (8.6-10.3); Chol/HDL Ratio 4.2 (0-4.9); Potassium 4.3 mEq/L (3.5-5.1)
[2022-03-09] MEDS: Chlorhexidine Rinse 15 ML MOUTHWASH MM SCH (20:04)
[2022-03-09] MEDS ORDERED: *HR* Enoxaparin 30 MG/0.3 ML SYRINGE SQ ONE (22:25)
[2022-03-10 00:56] LABS: Basophils # 0.1 K/mcL (0.0-0.2); Basophils % 0.7 %; Eosinophils # 0.4 K/mcL (0.0-0.6); Eosinophils % 4.8 %; Hematocrit 43.9 % (37.5-50.1); Hemoglobin 13.8 g/dL (12.9-16.9); Immature Granulocytes % 0.3 % (0-4); Lymphocytes # 1.1 K/mcL (0.6-4.6); Lymphocytes % 14.3 %; Mean Corpuscular HGB Conc 31.4 g/dL (31.6-35.5); Mean Corpuscular Hemoglobin 28.4 pg (28.0-33.3); Mean Corpuscular Volume 90.3 fL (83.0-100.0); Mean Platelet Volume 10.1 fL (9.4-12.4); Monocytes % 13.5 %; Platelet Count 228 K/mcL (140-400); Red Blood Count 4.86 M/mcL (4.19-5.50); Red Cell Distribution Width 15.9 % (11.5-14.5); Segmented Neutrophils % 66.4 %; White Blood Count 7.5 K/mcL (4.3-11.1)
[2022-03-10 01:48] LABS: Estimated Average Glucose 131 mg/dl; Hemoglobin A1C 6.2 %
[2022-03-10] MEDS ORDERED: Aspirin 81 MG TAB.CHEW PO ONE (06:00)
[2022-03-10] MEDS ORDERED: Papaverine 60 MG/2 ML VIAL IVP ONE (07:32)
[2022-03-10] MEDS ORDERED: Heparin 1,000 UNITS/500 mL 500 ML ONE ×2 (07:43→07:51)
[2022-03-10] MEDS ORDERED: *HR* FentaNYL (PF) 100 MCG/2 ML VIAL ONE (07:50)
[2022-03-10] MEDS ORDERED: 0.9 % Sodium Chloride 1,000 ML ONE (07:51)
[2022-03-10] MEDS ORDERED: *HR* Midazolam HCl 2 MG/2 ML VIAL ONE (07:51)
[2022-03-10] MEDS ORDERED: Clindamycin 900 MG/50 ML 900 MG/50 ML IV.SOLN IVPB ONE ×2 (09:00→11:47)
[2022-03-10] MEDS ORDERED: Ipratropium/Albuterol Neb 3 ML IH ONE ×2 (10:28→16:21)
[2022-03-10] MEDS ORDERED: del Nido Cardioplegia Solution PF ONE ×2 (10:30)
[2022-03-10] MEDS ORDERED: Buckersberg's Blood Cardioplegia PF ONE (10:30)
[2022-03-10] MEDS ORDERED: Norepinephrine 4 MG in 0.9 % Sodium Chloride 250 ML IVC PRN (10:30)
[2022-03-10] MEDS ORDERED: Heparin 15,000 UNIT in 0.9 % Sodium Chloride 500 ML IV ONE (10:30)
[2022-03-10] MEDS ORDERED: DOBUTamine 1,000 MG/250 ML BAG ONE (10:37)
[2022-03-10] MEDS ORDERED: *HR* Vasopressin 20 UNIT/ML VIAL ONE (10:38)
[2022-03-10] MEDS ORDERED: *HR* Rocuronium Bromide 50 MG/5 ML VIAL ONE ×2 (10:42→13:59)
[2022-03-10] MEDS ORDERED: *HR* FentaNYL (PF) 1,000 MCG/20 ML VIAL ONE (10:42)
[2022-03-10] MEDS ORDERED: *HR* Propofol 200 MG/20 ML VIAL IVP ONE (10:42)
[2022-03-10] MEDS ORDERED: *HR* Midazolam HCl 5 MG/5 ML VIAL IVP ONE (10:42)
[2022-03-10] MEDS ORDERED: Tranexamic Acid 1,000 MG/10 ML VIAL ONE (10:43)
[2022-03-10] MEDS ORDERED: Lidocaine 2% Syringe 100 MG/5 ML ONE (10:59)
[2022-03-10] MEDS ORDERED: Heparin 1,000 UNITS/500 mL IV.SOLN IR ONE (12:00)
[2022-03-10] MEDS ORDERED: *HR* Heparin 10,000 UNIT/10 ML VIAL IR ONE (12:00)
[2022-03-10 12:11] LABS: ABG Base Excess -7 mEq/L (-2 to 3); ABG Chloride 110 mEq/L (98-107); ABG Glucose 97 mg/dL (60-95); ABG HCO3 22 mEq/L (21-27); ABG Ionized Calcium 1.32 mmol/L (1.15-1.35); ABG Oxygen Saturation 100 % (95-98); ABG PCO2 58 mmHg (35-45); ABG PO2 476 mmHg (85-104); ABG TCO2 24 mEq/L (20-26)
[2022-03-10] MEDS ORDERED: Lidocaine Jelly 11 ml Syringe ONE (12:16)
[2022-03-10] MEDS ORDERED: Ondansetron 4 MG/2 ML VIAL ONE (13:07)
[2022-03-10] MEDS ORDERED: *HR* Magnesium Sulfate 1 GM/2 ML VIAL ONE (13:45)
[2022-03-10 13:54] LABS: ABG Base Excess -5 mEq/L (-2 to 3); ABG Chloride 111 mEq/L (98-107); ABG Glucose 115 mg/dL (60-95); ABG HCO3 20 mEq/L (21-27); ABG Ionized Calcium 1.13 mmol/L (1.15-1.35); ABG Oxygen Saturation 95 % (95-98); ABG PCO2 37 mmHg (35-45); ABG PH 7.35 pH Units (7.32-7.45); ABG PO2 78 mmHg (85-104); ABG TCO2 21 mEq/L (20-26)
[2022-03-10] MEDS ORDERED: Protamine Sulfate 250 MG/25 ML VIAL IVP ONE (14:54)
[2022-03-10] MEDS ORDERED: Calcium Gluconate 1,000 MG/10 ML VIAL ONE (14:54)
[2022-03-10] MEDS ORDERED: Acetaminophen 325 MG TABLET PO PRN (15:17)
[2022-03-10] MEDS ORDERED: *HR* Dextrose 50 % in Water (Syg) 50 ML SYRINGE IVP PRN (15:17)
[2022-03-10] MEDS ORDERED: *HR* FentaNYL (PF) 100 MCG/2 ML VIAL IVP PRN (15:17)
[2022-03-10] MEDS ORDERED: Potassium Chloride 40 MEQ/200 ML BAG IVPB PRN (15:17)
[2022-03-10] MEDS ORDERED: Insulin Regular, Human 100 UNIT/ML IV PRN (15:17)
[2022-03-10 15:19] LABS: ABG Base Excess -4 mEq/L (-2 to 3); ABG Chloride 111 mEq/L (98-107); ABG Glucose 116 mg/dL (60-95); ABG HCO3 21 mEq/L (21-27); ABG Ionized Calcium 1.33 mmol/L (1.15-1.35); ABG Oxygen Saturation 100 % (95-98); ABG PCO2 36 mmHg (35-45); ABG PH 7.38 pH Units (7.32-7.45); ABG PO2 333 mmHg (85-104); ABG TCO2 22 mEq/L (20-26)
[2022-03-10 15:55] LABS: ABG Base Excess -3 mEq/L (-2 to 3); ABG HCO3 22 mEq/L (21-27); ABG Oxygen Saturation 98 % (95-98); ABG PCO2 38 mmHg (35-45); ABG PH 7.37 pH Units (7.32-7.45); ABG PO2 110 mmHg (85-104); ABG TCO2 23 mEq/L (20-26); Blood Gas Modality ASSIST CONTROL; Blood Gas VT 450 cc
[2022-03-10] MEDS: carvediloL 6.25 MG TABLET PO SCH ×2 (16:01→17:07)
[2022-03-10] MEDS: niCARdipine 20 MG/200 ML MLS IVC SCH ×4 (16:05→23:01)
[2022-03-10 16:12] LABS: Basophils # 0.1 K/mcL (0.0-0.2); Basophils % 0.4 %; Eosinophils # 0.2 K/mcL (0.0-0.6); Eosinophils % 2.1 %; Hematocrit 39.1 % (37.5-50.1); Hemoglobin 12.4 g/dL (12.9-16.9); Immature Granulocytes % 0.6 % (0-4); Lymphocytes # 0.6 K/mcL (0.6-4.6); Lymphocytes % 5.3 %; Mean Corpuscular HGB Conc 31.7 g/dL (31.6-35.5); Mean Corpuscular Hemoglobin 28.6 pg (28.0-33.3); Mean Corpuscular Volume 90.1 fL (83.0-100.0); Mean Platelet Volume 10.3 fL (9.4-12.4); Monocytes # 0.5 K/mcL (0.0-1.3); Monocytes % 4.2 %; Neutrophils # 9.9 K/mcL (1.6-8.9); Platelet Count 183 K/mcL (140-400); Red Blood Count 4.34 M/mcL (4.19-5.50); Red Cell Distribution Width 15.6 % (11.5-14.5); Segmented Neutrophils % 87.4 %; White Blood Count 11.3 K/mcL (4.3-11.1)
[2022-03-10] MEDS ORDERED: Calcium Gluconate 1gm/50mL 1 GM/50 ML BAG IVPB PRN (16:16)
[2022-03-10 16:25] LABS: INR 1.2
[2022-03-10 16:27] LABS: Activated Partial Thrombo Time 33.2 Seconds (26.0-36.0)
[2022-03-10 16:31] LABS: BUN/Creatinine Ratio 22 (6-26); Blood Urea Nitrogen 26 mg/dL (8-23); Calcium 9.2 mg/dL (8.6-10.3); Carbon Dioxide 23 mEq/L (23-29); Chloride 109 mEq/L (98-107); Glucose 131 mg/dL (70-105); Magnesium 2.3 mg/dL (1.6-2.6); Osmolality,Calculated 293 (280-300); Potassium 4.7 mEq/L (3.5-5.1); Sodium 138 mEq/L (136-145); eGFR For African Americans > 60 (> 60); eGFR For Non-African Americans > 60 (> 60)
[2022-03-10 17:00] LABS: Prothrombin Time 13.4 Seconds (9.4-12.1)
[2022-03-10] MEDS: Pantoprazole 40 MG VIAL IVP SCH (17:06)
[2022-03-10] MEDS: Clindamycin 900 MG/50 ML 900 MG/50 ML IV.SOLN IVPB SCH ×2 (17:09→23:00)
[2022-03-10] MEDS ORDERED: Ipratropium/Albuterol Neb 3 ML IH PRN (17:19)
[2022-03-10] MEDS ORDERED: *HR* LORazepam 2 MG/ML VIAL IVP PRN (17:29)
[2022-03-10] MEDS: levETIRAcetam 1,000 MG in 0.9 % Sodium Chloride 100 ML IVPB SCH (17:55)
[2022-03-10] MEDS ORDERED: Aspirin Enteric Coated 81 MG Tablet PO SCH (18:00)
[2022-03-10] MEDS: *HR* OxyCODONE/APAP 5/325 TABLET PO PRN (19:19)
[2022-03-10] MEDS: DOBUTamine 1,000 MG/250 ML BAG IVC SCH (19:19)
[2022-03-10] MEDS: Norepinephrine 4 MG/254 ML IV.SOLN IVC SCH (19:20)
[2022-03-10] MEDS: Albumin Human 5% 12.5 GM/250 ML IV.SOLN IVPB PRN ×3 (19:53→23:34)
[2022-03-10] MEDS: Chlorhexidine Rinse 15 ML MOUTHWASH MM SCH (19:54)
[2022-03-10 20:33] LABS: ABG Base Excess -3 mEq/L (-2 to 3); ABG HCO3 23 mEq/L (21-27); ABG Oxygen Saturation 99 % (95-98); ABG PCO2 43 mmHg (35-45); ABG PH 7.33 pH Units (7.32-7.45); ABG PO2 136 mmHg (85-104); ABG TCO2 24 mEq/L (20-26); Blood Gas Modality AF; Blood Gas VT 450 cc
[2022-03-11 00:49] LABS: ABG Base Excess -3 mEq/L (-2 to 3); ABG HCO3 22 mEq/L (21-27); ABG Oxygen Saturation 98 % (95-98); ABG PCO2 37 mmHg (35-45); ABG PH 7.38 pH Units (7.32-7.45); ABG PO2 99 mmHg (85-104); ABG TCO2 23 mEq/L (20-26); Blood Gas Modality AF; Blood Gas VT 450 cc
[2022-03-11] MEDS: Albumin Human 5% 12.5 GM/250 ML IV.SOLN IVPB PRN ×3 (01:13→14:44)
[2022-03-11] MEDS: *HR* OxyCODONE/APAP 5/325 TABLET PO PRN ×3 (03:14→17:05)
[2022-03-11 03:28] LABS: Hematocrit 32.5 % (37.5-50.1); Immature Granulocytes % 0.3 % (0-4); Lymphocytes # 0.5 K/mcL (0.6-4.6); Lymphocytes % 4.7 %; Mean Corpuscular HGB Conc 31.7 g/dL (31.6-35.5); Mean Corpuscular Hemoglobin 28.7 pg (28.0-33.3); Mean Corpuscular Volume 90.5 fL (83.0-100.0); Mean Platelet Volume 11.1 fL (9.4-12.4); Monocytes # 0.7 K/mcL (0.0-1.3); Monocytes % 6.6 %; Neutrophils # 9.2 K/mcL (1.6-8.9); Platelet Count 189 K/mcL (140-400); Red Blood Count 3.59 M/mcL (4.19-5.50); Red Cell Distribution Width 15.5 % (11.5-14.5); Segmented Neutrophils % 88.4 %; White Blood Count 10.4 K/mcL (4.3-11.1)
[2022-03-11 03:36] LABS: BUN/Creatinine Ratio 22 (6-26); Blood Urea Nitrogen 27 mg/dL (8-23); Calcium 8.8 mg/dL (8.6-10.3); Carbon Dioxide 21 mEq/L (23-29); Chloride 107 mEq/L (98-107); Glucose 126 mg/dL (70-105); INR 1.1; Magnesium 2.4 mg/dL (1.6-2.6); Osmolality,Calculated 293 (280-300); Potassium 4.7 mEq/L (3.5-5.1); Prothrombin Time 12.6 Seconds (9.4-12.1); Sodium 138 mEq/L (136-145); eGFR For African Americans > 60 (> 60); eGFR For Non-African Americans 57 (> 60)
[2022-03-11 03:39] LABS: Activated Partial Thrombo Time 30.9 Seconds (26.0-36.0)
[2022-03-11 03:55] LABS: Hemoglobin 10.3 g/dL (12.9-16.9)
[2022-03-11 04:06] LABS: ABG Base Excess -2 mEq/L (-2 to 3); ABG HCO3 23 mEq/L (21-27); ABG Oxygen Saturation 98 % (95-98); ABG PCO2 39 mmHg (35-45); ABG PH 7.37 pH Units (7.32-7.45); ABG PO2 99 mmHg (85-104); ABG TCO2 24 mEq/L (20-26); Blood Gas Modality AF; Blood Gas VT 450 cc
[2022-03-11] MEDS: *HR* Enoxaparin 30 MG/0.3 ML SYRINGE SQ SCH (05:00)
[2022-03-11] MEDS: levETIRAcetam 1,000 MG in 0.9 % Sodium Chloride 100 ML IVPB SCH (05:00)
[2022-03-11] MEDS: niCARdipine 20 MG/200 ML MLS IVC SCH ×4 (05:08→18:38)
[2022-03-11 06:41] LABS: ABG Base Excess -3 mEq/L (-2 to 3); ABG HCO3 22 mEq/L (21-27); ABG Oxygen Saturation 97 % (95-98); ABG PCO2 39 mmHg (35-45); ABG PH 7.36 pH Units (7.32-7.45); ABG PO2 90 mmHg (85-104); ABG TCO2 23 mEq/L (20-26); Blood Gas Modality CPAP/PS; Blood Gas Pressure Support 5 cm H2O
[2022-03-11] MEDS: Clindamycin 900 MG/50 ML 900 MG/50 ML IV.SOLN IVPB SCH ×3 (07:19→23:01)
[2022-03-11] MEDS: Chlorhexidine Rinse 15 ML MOUTHWASH MM SCH ×2 (08:14→20:07)
[2022-03-11] MEDS: carvediloL 6.25 MG TABLET PO SCH ×2 (08:14→18:16)
[2022-03-11] MEDS: Pantoprazole 40 MG VIAL IVP SCH (08:15)
[2022-03-11] MEDS: Aspirin 81 MG TAB.CHEW PO SCH (08:20)
[2022-03-11] MEDS: Norepinephrine 4 MG/254 ML IV.SOLN IVC SCH ×2 (08:58→19:00)
[2022-03-11] MEDS ORDERED: Aspirin 81 MG TAB.CHEW PO SCH (09:00)
[2022-03-11] MEDS ORDERED: D5% in Water 1,000 ML IVC PRN (13:45)
[2022-03-11] MEDS ORDERED: *HR* Dextrose 50 % in Water (Syg) 50 ML SYRINGE IVP PRN (13:45)
[2022-03-11] MEDS ORDERED: Dextrose 4 GM Chewable Tablets PO PRN ×2 (13:45)
[2022-03-11] MEDS ORDERED: *HR* OxyCODONE/APAP 5/325 TABLET PO PRN (13:46)
[2022-03-11] MEDS: DOBUTamine 1,000 MG/250 ML BAG IVC SCH (15:32)
[2022-03-11] MEDS: Insulin LISPRO 300 UNITS/3 ML VIAL SUBQ SCH ×2 (15:54→20:07)
[2022-03-11] MEDS: levETIRAcetam 250 MG TABLET PO SCH (17:05)
[2022-03-12 03:32] LABS: Basophils % 0.1 %; Eosinophils # 0.1 K/mcL (0.0-0.6); Eosinophils % 0.7 %; Hematocrit 28.6 % (37.5-50.1); Hemoglobin 8.9 g/dL (12.9-16.9); Immature Granulocytes % 0.2 % (0-4); Lymphocytes # 0.7 K/mcL (0.6-4.6); Lymphocytes % 7.7 %; Mean Corpuscular HGB Conc 31.1 g/dL (31.6-35.5); Mean Corpuscular Hemoglobin 28.4 pg (28.0-33.3); Mean Corpuscular Volume 91.4 fL (83.0-100.0); Mean Platelet Volume 11.3 fL (9.4-12.4); Monocytes # 1.2 K/mcL (0.0-1.3); Monocytes % 13.9 %; Neutrophils # 6.8 K/mcL (1.6-8.9); Platelet Count 168 K/mcL (140-400); Red Blood Count 3.13 M/mcL (4.19-5.50); Segmented Neutrophils % 77.4 %; White Blood Count 8.8 K/mcL (4.3-11.1)
[2022-03-12 03:50] LABS: Calcium 8.7 mg/dL (8.6-10.3); Magnesium 2.1 mg/dL (1.6-2.6); Potassium 4.3 mEq/L (3.5-5.1)
[2022-03-12] MEDS: *HR* Enoxaparin 30 MG/0.3 ML SYRINGE SQ SCH (05:01)
[2022-03-12] MEDS: levETIRAcetam 250 MG TABLET PO SCH ×2 (05:01→17:18)
[2022-03-12] MEDS: Insulin LISPRO 300 UNITS/3 ML VIAL SUBQ SCH ×4 (07:45→20:19)
[2022-03-12] MEDS: niCARdipine 20 MG/200 ML MLS IVC SCH ×6 (07:45→19:32)
[2022-03-12] MEDS: Clindamycin 900 MG/50 ML 900 MG/50 ML IV.SOLN IVPB SCH (07:47)
[2022-03-12] MEDS: Chlorhexidine Rinse 15 ML MOUTHWASH MM SCH ×2 (07:55→20:19)
[2022-03-12] MEDS: Aspirin 81 MG TAB.CHEW PO SCH (07:55)
[2022-03-12] MEDS: Pantoprazole 40 MG VIAL IVP SCH (07:55)
[2022-03-12] MEDS: *HR* OxyCODONE/APAP 5/325 TABLET PO PRN ×2 (09:22→17:16)
[2022-03-12] MEDS: DOBUTamine 1,000 MG/250 ML BAG IVC SCH (10:25)
[2022-03-12] MEDS: carvediloL 6.25 MG TABLET PO SCH ×2 (11:01→17:16)
[2022-03-12] MEDS: Norepinephrine 4 MG/254 ML IV.SOLN IVC SCH (19:24)
[2022-03-13 03:52] LABS: Basophils % 0.4 %; Eosinophils # 0.2 K/mcL (0.0-0.6); Eosinophils % 2.7 %; Hematocrit 27.9 % (37.5-50.1); Hemoglobin 8.8 g/dL (12.9-16.9); Immature Granulocytes % 0.5 % (0-4); Lymphocytes # 0.7 K/mcL (0.6-4.6); Lymphocytes % 9.3 %; Mean Corpuscular HGB Conc 31.5 g/dL (31.6-35.5); Mean Corpuscular Hemoglobin 28.6 pg (28.0-33.3); Mean Corpuscular Volume 90.6 fL (83.0-100.0); Mean Platelet Volume 11.1 fL (9.4-12.4); Monocytes # 1.2 K/mcL (0.0-1.3); Monocytes % 14.6 %; Neutrophils # 5.7 K/mcL (1.6-8.9); Platelet Count 176 K/mcL (140-400); Red Blood Count 3.08 M/mcL (4.19-5.50); Red Cell Distribution Width 15.9 % (11.5-14.5); Segmented Neutrophils % 72.5 %; White Blood Count 7.9 K/mcL (4.3-11.1)
[2022-03-13 04:11] LABS: BUN/Creatinine Ratio 19 (6-26); Blood Urea Nitrogen 23 mg/dL (8-23); Calcium 8.7 mg/dL (8.6-10.3); Carbon Dioxide 25 mEq/L (23-29); Chloride 105 mEq/L (98-107); Glucose 114 mg/dL (70-105); Magnesium 2.1 mg/dL (1.6-2.6); Osmolality,Calculated 295 (280-300); Potassium 3.8 mEq/L (3.5-5.1); Sodium 140 mEq/L (136-145); eGFR For African Americans > 60 (> 60); eGFR For Non-African Americans 57 (> 60)
[2022-03-13] MEDS: levETIRAcetam 250 MG TABLET PO SCH ×2 (05:02→17:47)
[2022-03-13] MEDS: *HR* Enoxaparin 30 MG/0.3 ML SYRINGE SQ SCH (05:02)
[2022-03-13] MEDS ORDERED: *HR* LORazepam 2 MG/ML VIAL IVP PRN (07:56)
[2022-03-13] MEDS ORDERED: Ipratropium/Albuterol Neb 3 ML IH PRN (07:56)
[2022-03-13] MEDS ORDERED: Acetaminophen 325 MG TABLET PO PRN (07:56)
[2022-03-13] MEDS ORDERED: *HR* Dextrose 50 % in Water (Syg) 50 ML SYRINGE IVP PRN (07:56)
[2022-03-13] MEDS ORDERED: Dextrose 4 GM Chewable Tablets PO PRN ×2 (07:56)
[2022-03-13] MEDS ORDERED: *HR* OxyCODONE/APAP 5/325 TABLET PO PRN ×2 (07:56)
[2022-03-13] MEDS ORDERED: D5% in Water 1,000 ML IVC PRN (07:56)
[2022-03-13] MEDS ORDERED: carvediloL 6.25 MG TABLET PO SCH (08:00)
[2022-03-13] MEDS: Chlorhexidine Rinse 15 ML MOUTHWASH MM SCH ×3 (08:29→20:27)
[2022-03-13] MEDS: Aspirin 81 MG TAB.CHEW PO SCH (08:30)
[2022-03-13] MEDS: Bumetanide 1 MG/4 ML VIAL IVP SCH ×2 (10:00→17:45)
[2022-03-13] MEDS: Insulin LISPRO 300 UNITS/3 ML VIAL SUBQ SCH ×4 (12:58→20:13)
[2022-03-13] MEDS: niCARdipine 20 MG/200 ML MLS IVC SCH (16:44)
[2022-03-14 05:23] LABS: BUN/Creatinine Ratio 21 (6-26); Basophils # 0.1 K/mcL (0.0-0.2); Basophils % 0.5 %; Blood Urea Nitrogen 28 mg/dL (8-23); Carbon Dioxide 25 mEq/L (23-29); Chloride 105 mEq/L (98-107); Eosinophils # 0.4 K/mcL (0.0-0.6); Eosinophils % 3.9 %; Glucose 110 mg/dL (70-105); Hematocrit 29.6 % (37.5-50.1); Hemoglobin 9.6 g/dL (12.9-16.9); Immature Granulocytes % 0.4 % (0-4); Lymphocytes % 19.7 %; Magnesium 2.2 mg/dL (1.6-2.6); Mean Corpuscular HGB Conc 32.4 g/dL (31.6-35.5); Mean Corpuscular Hemoglobin 28.7 pg (28.0-33.3); Mean Corpuscular Volume 88.4 fL (83.0-100.0); Mean Platelet Volume 11.2 fL (9.4-12.4); Monocytes # 1.7 K/mcL (0.0-1.3); Monocytes % 16.9 %; Neutrophils # 5.9 K/mcL (1.6-8.9); Osmolality,Calculated 292 (280-300); Platelet Count 217 K/mcL (140-400); Potassium 4.5 mEq/L (3.5-5.1); Red Blood Count 3.35 M/mcL (4.19-5.50); Red Cell Distribution Width 15.7 % (11.5-14.5); Segmented Neutrophils % 58.6 %; Sodium 138 mEq/L (136-145); White Blood Count 10.1 K/mcL (4.3-11.1); eGFR For African Americans > 60 (> 60); eGFR For Non-African Americans 52 (> 60)
[2022-03-14] MEDS ORDERED: *HR* Enoxaparin 30 MG/0.3 ML SYRINGE SQ SCH (06:00)
[2022-03-14] MEDS: levETIRAcetam 250 MG TABLET PO SCH ×2 (06:24→17:21)
[2022-03-14] MEDS: *HR* Enoxaparin 40 MG/0.4 ML SYRINGE SQ SCH (06:25)
[2022-03-14] MEDS: Insulin LISPRO 300 UNITS/3 ML VIAL SUBQ SCH ×4 (08:52→20:18)
[2022-03-14] MEDS: Aspirin 81 MG TAB.CHEW PO SCH (08:53)
[2022-03-14] MEDS: Chlorhexidine Rinse 15 ML MOUTHWASH MM SCH ×2 (08:53→19:54)
[2022-03-14] MEDS: Bumetanide 1 MG/4 ML VIAL IVP SCH ×2 (08:53→17:20)
[2022-03-15 01:12] LABS: Basophils % 0.4 %; Eosinophils # 0.5 K/mcL (0.0-0.6); Eosinophils % 4.7 %; Hematocrit 29.2 % (37.5-50.1); Hemoglobin 9.6 g/dL (12.9-16.9); Immature Granulocytes % 0.3 % (0-4); Lymphocytes % 21.3 %; Mean Corpuscular HGB Conc 32.9 g/dL (31.6-35.5); Mean Corpuscular Hemoglobin 28.8 pg (28.0-33.3); Mean Corpuscular Volume 87.7 fL (83.0-100.0); Mean Platelet Volume 11.6 fL (9.4-12.4); Monocytes # 1.5 K/mcL (0.0-1.3); Monocytes % 16.2 %; Neutrophils # 5.4 K/mcL (1.6-8.9); Platelet Count 253 K/mcL (140-400); Red Blood Count 3.33 M/mcL (4.19-5.50); Red Cell Distribution Width 15.8 % (11.5-14.5); Segmented Neutrophils % 57.1 %; White Blood Count 9.5 K/mcL (4.3-11.1)
[2022-03-15 01:29] LABS: Calcium 9.1 mg/dL (8.6-10.3); Potassium 4.4 mEq/L (3.5-5.1)
[2022-03-15] MEDS: *HR* Enoxaparin 40 MG/0.4 ML SYRINGE SQ SCH (05:17)
[2022-03-15] MEDS: levETIRAcetam 250 MG TABLET PO SCH (05:18)
[2022-03-15 07:03] VITALS: TEMP 97.8
[2022-03-15] MEDS: Insulin LISPRO 300 UNITS/3 ML VIAL SUBQ SCH (07:35)
[2022-03-15] MEDS: Aspirin 81 MG TAB.CHEW PO SCH (07:58)
[2022-03-15] MEDS: Chlorhexidine Rinse 15 ML MOUTHWASH MM SCH (07:58)
[2022-03-15] MEDS ORDERED: Sennosides/Docusate Sodium TABLET PO SCH (09:00)
[2022-03-15] MEDS ORDERED: Metoprolol XL (24 HR) Succ 25 MG TAB.ER.24H PO SCH (09:00)
[2022-03-15] MEDS ORDERED: 0.9 % Sodium Chloride 1,000 ML IVC SCH (09:00)
[2022-03-15 11:57] VITALS: BP 116/54; PULSE 93; O2SAT 95
[2022-03-15] MEDS ORDERED: Apixaban 5 MG TABLET PO SCH (21:00)
== END 2022-03-15 15:28 | disposition home or self-care (01) | DRG 233 ==
LOC: INVDIALAB 10:26 → 3BNU 14:24 → ICNU 03-10 15:58 → 2NNU 03-13 16:07
PROVIDERS: ADMIT Internal Medicine; ATTEND Thoracic Surgery (Cardiothoracic Vascular Surgery)